=== PATIENT | male | born 1975 | race Caucasian/White ===

== ENCOUNTER 2017-12-24 10:05 | Emergency (ER) | payer SELFPAY ==
[2017-12-24 10:38] VITALS: PULSE 107; TEMP 98.3; BMI 30.5
--- NOTE | 2017-12-24 10:53 | PDOC ---
History of Present Illness - General Chief Complaint: Injury Stated Complaint: LEFT LEG PAIN INJURY Time Seen by Provider: 12/24/17 10:08 History Source: Patient Exam Limitations: No Limitations - History of Present Illness Initial Comments: 12/24/17 10:49 42-year-old male with no past medical history presents with left ankle pain. Yesterday, the patient was running and hit his left foot on an object. Since then, was complaining about left ankle pain. The patient was able to ambulate all day afterwards and went to a birthday green party. This morning, noted that it was more swollen and with ecchymosis. Denies any numbness or weakness. Came to the ER for further management. Past History - Past Medical History Allergies/Adverse Reactions: Allergies Allergy/AdvReac Type Severity Reaction Status Date / Time Penicillins Allergy Severe Difficulty Verified 12/24/17 10:11 Breathing Home Medications: Ambulatory Orders Naproxen 500 mg PO BID PRN #20 tablet 12/24/17 COPD: No Other medical history: DENIES - Suicide/Smoking/Psychosocial Hx Smoking History: Never smoked Have you smoked in the past 12 months: No Information on smoking cessation initiated: No Hx Alcohol Use: Yes Drug/Substance Use Hx: No Substance Use Type: Alcohol Review of Systems - Review of Systems Able to Perform ROS?: Yes Comments:: 12/24/17 10:49 GENERAL/CONSTITUTIONAL: No fever, weakness. HEAD, EYES, EARS, NOSE AND THROAT: No change in vision. No ear pain or discharge. No sore throat. CARDIOVASCULAR: No chest pain or shortness of breath. RESPIRATORY: No cough, wheezing, or hemoptysis. GASTROINTESTINAL: No abdominal pain, nausea, vomiting, diarrhea, or decreased PO intolerance. GENITOURINARY: No dysuria, frequency, or change in urination. MUSCULOSKELETAL: + left ankle pain SKIN: No rash NEUROLOGIC: No headache, vertigo, loss of consciousness, or change in strength/ sensation. ENDOCRINE: No increased thirst. No abnormal weight change. HEMATOLOGIC/LYMPHATIC: No anemia, easy bleeding, or history of blood clots. ALLERGIC/IMMUNOLOGIC: No hives or skin allergy. *Physical Exam - Vital Signs Last Vital Signs Temp Pulse Resp BP Pulse Ox 98.3 F 107 H 20 187/123 100 12/24/17 10:06 12/24/17 10:12/24/17 10:18 10:06 12/24/17 10:06 - Physical Exam Comments: 12/24/17 10:50 GENERAL: Awake, alert, and fully oriented, in no acute distress. HEAD: No signs of trauma EYES: EOMI, sclera anicteric, conjunctiva clear ENT: Auricles normal inspection, hearing grossly normal, nares patent, NECK: Normal ROM, supple EXTREMITIES: left ankle TTP medial and lateral malleolus. ecchymosis noted over medial malleolus. 2+ DP pulse LLE. Able to flex and extend ankle. No TTP to the metatarsals. Sensation intact throughout. No tenderness elicited on the medial or proximal portion of the tibia/fibula. NEUROLOGICAL: Cranial nerves II through XII grossly intact. Normal speech SKIN: Warm, Dry, normal turgor, no rashes or lesions noted. ED Treatment Course - RADIOLOGY Radiology Studies Ordered: Category Date Time Status ANKLE & FOOT-LEFT* [RAD] Stat Radiology 12/24/17 10:28 Ordered LEG TIB/FIB-LEFT [RAD] Stat Radiology 12/24/17 10:29 Ordered DUPLEX VASCUL US-1 LEG [US] Stat Ultrasound 12/24/17 10:29 Ordered Medical Decision Making - Medical Decision Making 12/24/17 10:53 Vital Signs Temp Pulse Resp BP Pulse Ox 98.3 F 107 H 20 187/123 100 12/24/17 10:06 12/24/17 10:06 12/24/17 10:06 12/24/17 10:06 12/24/17 10:06 Will obtain duplex and LLE radiographs. However, I have low suspicion for DVT. Pt likely with edema given that he was standing on it and walking on it all day after the injury. Will obtain a radiograph to r/o fractures. Reassess. 12/24/17 12:07 Ultrasound reviewed. No DVT. Radiographs reviewed, pending official radiology read. Distal fibula fracture. Pt made nonweightbearing. NSAIDS, elevation. Pt was placed in a posterior U splint. Follow up with orthopedics. Pt noted with elevated blood pressures. Pt insists that its white coat hypertension and from the pain. I advised the patient that his BP is elevated and that he will need very close PMD follow up. Pt denies chest pain, SOB, lightheadedness, headaches. At this time, will treat for pain and have patient follow up with a PMD with strict return precautions. I discussed the physical exam findings, ancillary test results and final diagnoses with the patient. I answered all of the patient's questions. The patient was satisfied with the care received and felt comfortable with the discharge plan and treatment plan. The patient will call their primary care physician within 24 hours to arrange follow-up and will return to the Emergency Department with any new, persistant or worsening symptoms. *DC/Admit/Observation/Transfer Diagnosis at time of Disposition: Fibula fracture Qualifiers: Encounter type: initial encounter Fibula location: distal Fracture type: closed Fracture morphology: unspecified fracture morphology Laterality: left Qualified Code(s): S82.832A - Other fracture of upper and lower end of left fibula, initial encounter for closed fracture - Discharge Dispostion Disposition: HOME Condition at time of disposition: Stable Decision to Admit order: No - Prescriptions Prescriptions: Naproxen 500 mg PO BID PRN #20 tablet PRN Reason: Pain - Referrals Referrals: Juan Manuel Gilmore MD [Staff Physician] - Frederick Bustos MD [Staff Physician] - - Patient Instructions Printed Discharge Instructions: DI for Ankle Fracture Additional Instructions: Please do not put weight on your splint. Wear your splint at all times. When you take a bath, please cover your splint with a bag. Elevate the leg as much as you can to minimize swelling. Take 500 mg naproxen every 12 hours as needed for pain. Use the crutches at all times. Your ultrasound is negative for blood clots. Your radiograph shows a fracture of your distal fibula. Please follow up with the orthopedics early next week. Call to schedule an appointment. Your blood pressure is quite elevated. It is very important that you follow up with a primary care physician. If you experience any chest pain, shortness of breath, or severe headaches, please return to the ER. - Post Discharge Activity
[2017-12-24] MEDS ORDERED: NAPROXEN 500 MG TABLET (FP) PO ONE (11:28)
[2017-12-24 11:29] VITALS: BP 181/129
[2017-12-24] MEDS ORDERED: NAPROXEN 500 MG TABLET (FP) ONE (11:30)
== END 2017-12-24 13:19 | disposition home or self-care (01) ==
LOC: FER 10:05
CPT/HCPCS: 73590-TC-LT-FY; 73610-TC-LT-FY; 73630-TC-LT; 93971-TC; 99282-25

== ENCOUNTER 2020-12-29 21:43 | Emergency (ER) | payer OTHER ==
[2020-12-29 21:57] VITALS: BP 135/81; PULSE 127; BMI 25.7
[2020-12-29 22:38] LABS: BASO % 1.4 % (0-2.0); HEMATOCRIT 45.6 % (35.4-49); HEMOGLOBIN 15.8 GM/dl (11.7-16.9); LYMPH % 32.1 % (8-40); MCH 32.4 pg (25.7-33.7); MCHC 34.5 g/dl (32.0-35.9); MEAN CELL VOLUME 93.8 fl (80-96); MEAN PLT VOLUME 8.1 fl (7.5-11.1); MONO % 10.9 % (3.8-10.2); NEUT % 54.6 % (42.8-82.8); PLATELET COUNT 169 10^3/uL (134-434); RBC 4.86 M/mm3 (4.00-5.60); RDW 11.9 % (11.9-15.9); WHITE BLOOD COUNT 6.3 K/mm3 (4.0-10.8)
[2020-12-29 22:52] LABS: ALBUMIN 4.3 g/dl (3.4-5.0); BILIRUBIN,TOTAL 0.4 mg/dl (0.2-1); CALCIUM 9.4 mg/dl (8.5-10); CREATININE 1.1 mg/dl (0.55-1.3); TOT PROT 7.6 g/dl (6.4-8.2)
== END 2020-12-30 00:35 | disposition home or self-care (01) ==
LOC: FER 21:43
DX: F10.920 Alcohol use, unspecified with intoxication, uncomplicated (principal); E11.9 Type 2 diabetes mellitus without complications
CPT/HCPCS: 36415; 80053; 80307; 81003; 82550; 84484; 85025; 93005; 99284-25

== ENCOUNTER 2021-01-02 00:38 | Emergency (ER) | payer OTHER ==
[2021-01-02] MEDS ORDERED: SODIUM CHLORIDE 1,000 ML IV STA (00:41)
[2021-01-02 00:49] VITALS: BP 127/99; PULSE 88; TEMP 98; BMI 27.8
[2021-01-02 02:07] LABS: BASO % 0.5 % (0-2.0); EOS % 1.5 % (0-4.5); HEMATOCRIT 43.3 % (35.4-49); HEMOGLOBIN 15.4 GM/dL (11.7-16.9); LYMPH % 38.9 % (8-40); MCHC 35.5 g/dl (32.0-35.9); MEAN CELL VOLUME 90.4 fl (80-96); MEAN PLT VOLUME 7.4 fl (7.5-11.1); MONO % 8.7 % (3.8-10.2); NEUT % 50.4 % (42.8-82.8); PLATELET COUNT 185 10^3/uL (134-434); RBC 4.79 M/mm3 (4.00-5.60); RDW 12.7 % (11.9-15.9); WHITE BLOOD COUNT 5.8 K/mm3 (4.0-10.0)
[2021-01-02 02:28] LABS: ALBUMIN 4.5 g/dl (3.4-5.0); CALCIUM 9.6 mg/dL (8.5-10.1)
[2021-01-02 02:29] LABS: BLOOD UREA NITROGEN 5.6 mg/dL (7-18)
[2021-01-02 02:31] LABS: CREATININE 0.6 mg/dL (0.55-1.3)
[2021-01-02 02:33] LABS: BILIRUBIN,TOTAL 0.4 mg/dL (0.2-1); TOT PROT 7.9 g/dl (6.4-8.2)
== END 2021-01-02 03:00 | disposition home or self-care (01) ==
LOC: FER 00:38
PROC: 3E0337Z Introduction of Electrolytic and Water Balance Substance into Peripheral Vein, Percutaneous Approach (ICD-10-PCS; principal; 2021-01-02)
DX: R73.09 Other abnormal glucose (principal)
CPT/HCPCS: 36415; 80053; 82010; 82962; 85025; 96360; 99283-25

== ENCOUNTER 2021-01-06 06:23 | Emergency (ER) | payer OTHER ==
[2021-01-06 06:41] VITALS: TEMP 98.1; BMI 24.5
[2021-01-06] MEDS ORDERED: LACTATED RINGERS SOLUTION 1000 ML INFUS.BAG IV ONE (07:34)
[2021-01-06 09:00] LABS: BASO % 0.9 % (0-2.0); EOS % 0.2 % (0-4.5); HEMATOCRIT 39.4 % (35.4-49); HEMOGLOBIN 13.8 GM/dL (11.7-16.9); LYMPH % 22.3 % (8-40); MEAN CELL VOLUME 91.6 fl (80-96); MEAN PLT VOLUME 7.1 fl (7.5-11.1); MONO % 7.7 % (3.8-10.2); NEUT % 68.9 % (42.8-82.8); PLATELET COUNT 176 10^3/uL (134-434); RDW 12.8 % (11.9-15.9); WHITE BLOOD COUNT 4.9 K/mm3 (4.0-10.0)
[2021-01-06 09:20] LABS: CHLORIDE 111 mmol/L (98-107); SODIUM 144 mmol/L (136-145)
[2021-01-06 09:22] LABS: CALCIUM 8.5 mg/dL (8.5-10.1)
[2021-01-06 09:23] LABS: ANION GAP 8 MMOL/L (8-16); BLOOD UREA NITROGEN 7.3 mg/dL (7-18); CO2 24 mmol/L (21-32); GLUCOSE,RANDOM 127 mg/dL (74-106)
[2021-01-06 09:26] LABS: CREATININE 0.6 mg/dL (0.55-1.3); SGOT/AST 48 U/L (15-37); SGPT/ALT 23 U/L (13-61)
[2021-01-06 09:27] LABS: BILIRUBIN,TOTAL 0.3 mg/dL (0.2-1)
[2021-01-06 09:28] LABS: TOT PROT 6.7 g/dl (6.4-8.2)
[2021-01-06 09:29] LABS: ALK PHOS 72 U/L (45-117)
[2021-01-06 09:31] LABS: ALBUMIN 3.5 g/dl (3.4-5.0)
[2021-01-06 12:42] VITALS: BP 141/89; PULSE 72
== END 2021-01-06 12:15 | disposition home or self-care (01) ==
LOC: JER 06:23
DX: R53.1 Weakness (principal); E16.2 Hypoglycemia, unspecified; Z79.4 Long term (current) use of insulin
CPT/HCPCS: 36415; 70450-TC; 80053; 82962; 84132; 84484; 85025; 93005; 93010; 99285-25

== ENCOUNTER 2021-03-15 22:00 | Emergency (ER) | payer OTHER ==
[2021-03-15 22:07] VITALS: BMI 27.1
[2021-03-15] MEDS ORDERED: LACTATED RINGERS SOLUTION 1,000 ML IV STA (23:15)
[2021-03-15] MEDS ORDERED: ONDANSETRON 4 MG/2 ML VIAL IVPUSH ONE (23:15)
[2021-03-15] MEDS ORDERED: ONDANSETRON 4 MG/2 ML VIAL ONE (23:39)
[2021-03-15 23:45] LABS: BASO % 0.3 % (0-2.0); EOS % 1.5 % (0-4.5); HEMATOCRIT 47.6 % (35.4-49); LYMPH % 36.9 % (8-40); MCH 32.3 pg (25.7-33.7); MCHC 35.8 g/dl (32.0-35.9); MEAN CELL VOLUME 90.2 fl (80-96); MEAN PLT VOLUME 7.4 fl (7.5-11.1); MONO % 7.9 % (3.8-10.2); NEUT % 53.4 % (42.8-82.8); PLATELET COUNT 198 10^3/uL (134-434); RBC 5.28 M/mm3 (4.00-5.60); RDW 13.4 % (11.9-15.9); WHITE BLOOD COUNT 6.8 K/mm3 (4.0-10.0)
[2021-03-15 23:50] LABS: INR 0.93 (0.83-1.09); PROTHROMBIN TIME (PATIENT) 11.5 SEC (9.7-13.0)
[2021-03-15 23:52] LABS: ACTIVATED PTT 27.6 SECONDS (25.2-36.5)
[2021-03-16 00:19] LABS: CHLORIDE 110 mmol/L (98-107); SODIUM 144 mmol/L (136-145)
[2021-03-16 00:21] LABS: CALCIUM 8.8 mg/dL (8.5-10.1)
[2021-03-16 00:22] LABS: ALBUMIN 4.3 g/dl (3.4-5.0); ANION GAP 8 MMOL/L (8-16); BLOOD UREA NITROGEN 7.5 mg/dL (7-18); CO2 25 mmol/L (21-32); GLUCOSE,RANDOM 116 mg/dL (74-106)
[2021-03-16 00:25] LABS: CREATININE 0.7 mg/dL (0.55-1.3); SGOT/AST 9 U/L (15-37); SGPT/ALT 21 U/L (13-61)
[2021-03-16 00:27] LABS: BILIRUBIN,TOTAL 0.3 mg/dL (0.2-1); TOT PROT 7.9 g/dl (6.4-8.2)
[2021-03-16 00:28] LABS: ALK PHOS 77 U/L (45-117)
[2021-03-16 02:49] LABS: URINE APPEARANCE CLEAR; URINE BILIRUBIN NEGATIVE (NEGATIVE); URINE COLOR YELLOW; URINE GLUCOSE (UA) TRACE (NEGATIVE); URINE KETONE TRACE (NEGATIVE); URINE LEUK ESTERASE NEGATIVE (NEGATIVE); URINE NITRITE NEGATIVE (NEGATIVE); URINE PROTEIN NEGATIVE (NEGATIVE); URINE UROBILINOGEN 0.2 mg/dL (0.2-1.0)
[2021-03-16] MEDS ORDERED: SUCRALFATE 1 GM TABLET (FP) PO ONE (03:28)
[2021-03-16] MEDS ORDERED: SUCRALFATE 1 GM TABLET (FP) ONE (03:37)
[2021-03-16 03:45] LABS: N-TERMINAL BNP 21.3 pg/ml (5-125)
[2021-03-16 04:37] VITALS: BP 124/80; PULSE 77
[2021-03-16] MEDS ORDERED: SUCRALFATE 1 GM TABLET (FP) PO SCH (10:00)
== END 2021-03-16 06:17 | disposition home or self-care (01) ==
LOC: JER 22:00
PROC: 3E033GC Introduction of Other Therapeutic Substance into Peripheral Vein, Percutaneous Approach (ICD-10-PCS; principal; 2021-03-15)
PROC: 3E0337Z Introduction of Electrolytic and Water Balance Substance into Peripheral Vein, Percutaneous Approach (ICD-10-PCS; 2021-03-15)
DX: R07.9 Chest pain, unspecified (principal)
CPT/HCPCS: 36415; 71046-TC-FY; 71275-TC; 74174-TC; 80053; 81003; 82550; 83880; 84484; 85025; 85379; 85610; 85651; 85730; 86140; 93005; 93010; 99285-25; C9803; U0003; U0005

== ENCOUNTER 2021-03-30 19:58 | Emergency (ER) | payer OTHER ==
[2021-03-30 20:16] VITALS: BP 149/98; PULSE 118; TEMP 99; BMI 26.8
[2021-03-30] MEDS ORDERED: SODIUM CHLORIDE 1,000 ML IV STA (21:20)
[2021-03-30 21:53] LABS: BASO % 2.7 % (0-2.0); EOS % 1.3 % (0-4.5); HEMOGLOBIN 15.6 GM/dl (11.7-16.9); LYMPH % 30.6 % (8-40); MCH 31.8 pg (25.7-33.7); MCHC 34.6 g/dl (32.0-35.9); MEAN CELL VOLUME 91.9 fl (80-96); MEAN PLT VOLUME 7.6 fl (7.5-11.1); MONO % 10.1 % (3.8-10.2); NEUT % 55.3 % (42.8-82.8); PLATELET COUNT 134 10^3/uL (134-434); RDW 12.1 % (11.9-15.9); WHITE BLOOD COUNT 5.9 K/mm3 (4.0-10.8)
[2021-03-30 21:59] LABS: ALK PHOS 71 U/L (45-117); ANION GAP 13 MMOL/L (8-16); BILIRUBIN,TOTAL 0.7 mg/dl (0.2-1); CALCIUM 9.1 mg/dl (8.5-10); CHLORIDE 108 mmol/L (98-107); CO2 23 mmol/L (21-32); CREATININE 0.7 mg/dl (0.55-1.3); GLUCOSE,RANDOM 184 mg/dl (74-106); SGOT/AST 15 U/L (15-37); SGPT/ALT 15 U/L (13-61); SODIUM 144 mmol/L (136-145)
[2021-03-30 23:00] LABS: LIPASE 164 U/L (73-393)
[2021-03-31] MEDS ORDERED: CIPROFLOXACIN 500 MG TABLET (RESTRICTED TO ID) PO ONE (01:31)
[2021-03-31] MEDS ORDERED: metroNIDAZOLE 250 MG TABLET PO ONE (01:31)
[2021-03-31] MEDS ORDERED: CIPROFLOXACIN 250 MG TABLET (RESTRICTED TO ID) PO ONE (01:33)
[2021-03-31] MEDS ORDERED: metroNIDAZOLE 250 MG TABLET ONE (01:33)
== END 2021-03-31 01:40 | disposition home or self-care (01) ==
LOC: FER 19:58
PROC: 3E0337Z Introduction of Electrolytic and Water Balance Substance into Peripheral Vein, Percutaneous Approach (ICD-10-PCS; principal; 2021-03-30)
DX: K52.9 Noninfective gastroenteritis and colitis, unspecified (principal); K57.92 Diverticulitis of intestine, part unspecified, without perforation or abscess without bleeding
CPT/HCPCS: 36415; 74177-TC; 76705-TC; 80053; 81003; 82962; 83690; 84484; 85025; 87086; 96360; 99285-25; Q9967

== ENCOUNTER 2022-06-17 01:13 | Inpatient (IN) | payer OTHER ==
[2022-06-17 01:43] VITALS: BMI 31.1
[2022-06-17] MEDS ORDERED: morphine CARPU-JECT 4 MG/1 ML DISP.SYRIN IVPUSH ONE (01:52)
[2022-06-17] MEDS ORDERED: morphine SULFATE 4 MG/ML VIAL ONE (02:30)
[2022-06-17 02:39] LABS: BASO % 0.8 % (0-2.0); EOS % 0.2 % (0-4.5); HEMATOCRIT 44.8 % (35.4-49); HEMOGLOBIN 15.5 GM/dL (11.7-16.9); LYMPH % 9.8 % (8-40); MCHC 34.6 g/dl (32.0-35.9); MEAN CELL VOLUME 92.6 fl (80-96); MEAN PLT VOLUME 7.6 fl (7.5-11.1); MONO % 8.7 % (3.8-10.2); NEUT % 80.5 % (42.8-82.8); PLATELET COUNT 158 10^3/uL (134-434); RBC 4.84 M/mm3 (4.00-5.60); RDW 12.8 % (11.9-15.9); WHITE BLOOD COUNT 11.3 K/mm3 (4.0-10.0)
[2022-06-17] MEDS ORDERED: ONDANSETRON 4 MG/2 ML VIAL IVPUSH ONE (02:39)
[2022-06-17] MEDS ORDERED: LACTATED RINGERS SOLUTION 1000 ML INFUS.BAG IV ONE (02:39)
[2022-06-17 02:46] LABS: URINE APPEARANCE CLEAR; URINE BILIRUBIN NEGATIVE (NEGATIVE); URINE COLOR ORANGE; URINE GLUCOSE (UA) NEGATIVE (NEGATIVE); URINE KETONE 1+ (NEGATIVE); URINE LEUK ESTERASE NEGATIVE (NEGATIVE); URINE NITRITE NEGATIVE (NEGATIVE); URINE PROTEIN NEGATIVE (NEGATIVE); URINE UROBILINOGEN 0.2 mg/dL (0.2-1.0)
[2022-06-17 03:02] LABS: BLOOD UREA NITROGEN 8.7 mg/dL (7-18); CALCIUM 9.5 mg/dL (8.5-10.1); MAGNESIUM 1.8 mg/dL (1.8-2.4)
[2022-06-17 03:05] LABS: CREATININE 0.9 mg/dL (0.55-1.3)
[2022-06-17 03:07] LABS: BILIRUBIN,TOTAL 1.5 mg/dL (0.2-1); TOT PROT 7.4 g/dl (6.4-8.2)
[2022-06-17] MEDS ORDERED: CIPROFLOXACIN 400 MG/D5W 400 MG/200 ML IVPB IVPB ONE (03:41)
[2022-06-17] MEDS ORDERED: ONDANSETRON 4 MG/2 ML VIAL IVPUSH PRN (04:27)
[2022-06-17] MEDS ORDERED: KETOROLAC TROMETHAMINE 15 MG/ML VIAL IVPUSH ONE (04:34)
[2022-06-17] MEDS ORDERED: KETOROLAC TROMETHAMINE 15 MG/ML VIAL ONE (04:35)
[2022-06-17] MEDS ORDERED: CEFTRIAXONE 1,000 MG in DEXTROSE 5%-WATER - 50 ML IVPB SCH (05:30)
[2022-06-17 07:36] LABS: BASO % 0.1 % (0-2.0); EOS % 0.2 % (0-4.5); HEMATOCRIT 41.3 % (35.4-49); HEMOGLOBIN 14.3 GM/dL (11.7-16.9); LYMPH % 10.9 % (8-40); MCHC 34.7 g/dl (32.0-35.9); MEAN PLT VOLUME 8.1 fl (7.5-11.1); MONO % 9.6 % (3.8-10.2); NEUT % 79.2 % (42.8-82.8); PLATELET COUNT 132 10^3/uL (134-434); RBC 4.49 M/mm3 (4.00-5.60); RDW 12.5 % (11.9-15.9); WHITE BLOOD COUNT 9.8 K/mm3 (4.0-10.0)
[2022-06-17] MEDS ORDERED: ACETAMINOPHEN INJECTION 100 ML IVPB ONE (08:21)
[2022-06-17 08:29] LABS: ALBUMIN 3.3 g/dl (3.4-5.0); BLOOD UREA NITROGEN 8.9 mg/dL (7-18); CALCIUM 8.8 mg/dL (8.5-10.1); MAGNESIUM 1.7 mg/dL (1.8-2.4)
[2022-06-17 08:32] LABS: BILIRUBIN,DIRECT 0.6 mg/dL (0.0-0.2); CREATININE 0.7 mg/dL (0.55-1.3); PHOSPHOROUS 3.7 mg/dL (2.5-4.9)
[2022-06-17 08:33] LABS: BILIRUBIN,TOTAL 1.4 mg/dL (0.2-1); TOT PROT 6.3 g/dl (6.4-8.2)
[2022-06-17] MEDS: INSULIN SLIDING SCALE (NOVOLOG) 1 VIAL SQ SCH ×4 (08:46→22:06)
[2022-06-17] MEDS: ACETAMINOPHEN 1000 MG/100 ML BAG IVPB PRN ×2 (08:47→17:28)
[2022-06-17] MEDS: ENOXAPARIN NA (PORCINE) 40 MG/0.4 ML DISP.SYRIN SQ SCH (11:13)
[2022-06-17] MEDS ORDERED: morphine SULFATE 4 MG/ML VIAL IVPUSH PRN (11:55)
[2022-06-17] MEDS ORDERED: MAGNESIUM 2GM/50ML STERILE WATER IVPB IVPB ONE (14:00)
[2022-06-17] MEDS ORDERED: MAGNESIUM OXIDE 400 MG TABLET (FP) PO ONE (17:09)
[2022-06-17] MEDS: LACTATED RINGERS SOLUTION 1,000 ML/1,000 ML INFUS.BAG IV SCH (17:29)
[2022-06-17] MEDS: MELATONIN 5 MG TABLETS PO SCH (22:02)
[2022-06-17] MEDS: ROSUVASTATIN CA 5 MG TABLET PO SCH (22:02)
[2022-06-18] MEDS ORDERED: MAGNESIUM OXIDE 400 MG TABLET (FP) PO ONE (06:00)
[2022-06-18] MEDS: INSULIN SLIDING SCALE (NOVOLOG) 1 VIAL SQ SCH ×4 (06:21→22:10)
[2022-06-18 08:01] LABS: HEMOGLOBIN 13.9 GM/dL (11.7-16.9); MCHC 35.6 g/dl (32.0-35.9); MEAN CELL VOLUME 92.8 fl (80-96); MEAN PLT VOLUME 7.7 fl (7.5-11.1); PLATELET COUNT 109 10^3/uL (134-434); RDW 12.3 % (11.9-15.9); WHITE BLOOD COUNT 6.8 K/mm3 (4.0-10.0)
[2022-06-18 08:16] LABS: CALCIUM 8.8 mg/dL (8.5-10.1)
[2022-06-18 08:17] LABS: ALBUMIN 3.1 g/dl (3.4-5.0)
[2022-06-18 08:20] LABS: PHOSPHOROUS 2.1 mg/dL (2.5-4.9)
[2022-06-18 08:21] LABS: CREATININE 0.7 mg/dL (0.55-1.3); TOT PROT 6.2 g/dl (6.4-8.2)
[2022-06-18 08:22] LABS: BILIRUBIN,TOTAL 0.9 mg/dL (0.2-1)
[2022-06-18] MEDS ORDERED: SODIUM PHOSPHATE - 20 MM in SODIUM CHLORIDE 250 ML IVPB ONE (11:00)
[2022-06-18] MEDS: ENOXAPARIN NA (PORCINE) 40 MG/0.4 ML DISP.SYRIN SQ SCH (11:05)
[2022-06-18] MEDS: FOLIC ACID 1 MG TABLET (FP) PO SCH (11:08)
[2022-06-18] MEDS: LACTATED RINGERS SOLUTION 1,000 ML/1,000 ML INFUS.BAG IV SCH (18:18)
[2022-06-18] MEDS: MELATONIN 5 MG TABLETS PO SCH (22:10)
[2022-06-18] MEDS: ROSUVASTATIN CA 5 MG TABLET PO SCH (22:10)
[2022-06-18] MEDS: ACETAMINOPHEN 500 MG TABLET (FP) PO PRN (22:44)
[2022-06-19] MEDS: INSULIN SLIDING SCALE (NOVOLOG) 1 VIAL SQ SCH ×4 (06:47→21:38)
[2022-06-19] MEDS: FOLIC ACID 1 MG TABLET (FP) PO SCH (10:01)
[2022-06-19] MEDS: ENOXAPARIN NA (PORCINE) 40 MG/0.4 ML DISP.SYRIN SQ SCH (10:01)
[2022-06-19] MEDS: LACTATED RINGERS SOLUTION 1,000 ML/1,000 ML INFUS.BAG IV SCH ×2 (10:13→17:02)
[2022-06-19 11:43] LABS: HEMATOCRIT 37.8 % (35.4-49); MCH 31.9 pg (25.7-33.7); MCHC 34.4 g/dl (32.0-35.9); MEAN CELL VOLUME 92.8 fl (80-96); MEAN PLT VOLUME 7.9 fl (7.5-11.1); PLATELET COUNT 127 10^3/uL (134-434); RBC 4.07 M/mm3 (4.00-5.60); RDW 12.2 % (11.9-15.9); WHITE BLOOD COUNT 4.7 K/mm3 (4.0-10.0)
[2022-06-19 12:29] LABS: ALBUMIN 2.9 g/dl (3.4-5.0); BLOOD UREA NITROGEN 6.6 mg/dL (7-18); MAGNESIUM 2.1 mg/dL (1.8-2.4)
[2022-06-19 12:31] LABS: CREATININE 0.6 mg/dL (0.55-1.3); PHOSPHOROUS 2.6 mg/dL (2.5-4.9)
[2022-06-19 12:32] LABS: BILIRUBIN,TOTAL 0.6 mg/dL (0.2-1)
[2022-06-19] MEDS: ACETAMINOPHEN 500 MG TABLET (FP) PO PRN (18:57)
[2022-06-19] MEDS: MELATONIN 5 MG TABLETS PO SCH (21:38)
[2022-06-19] MEDS: ROSUVASTATIN CA 5 MG TABLET PO SCH (21:38)
[2022-06-20] MEDS: INSULIN SLIDING SCALE (NOVOLOG) 1 VIAL SQ SCH ×4 (06:22→21:20)
[2022-06-20] MEDS: ACETAMINOPHEN 500 MG TABLET (FP) PO PRN (08:43)
[2022-06-20] MEDS: ENOXAPARIN NA (PORCINE) 40 MG/0.4 ML DISP.SYRIN SQ SCH (09:19)
[2022-06-20] MEDS: FOLIC ACID 1 MG TABLET (FP) PO SCH (09:19)
[2022-06-20 10:06] LABS: HEMATOCRIT 39.7 % (35.4-49); HEMOGLOBIN 13.6 GM/dL (11.7-16.9); MCH 32.2 pg (25.7-33.7); MCHC 34.3 g/dl (32.0-35.9); MEAN CELL VOLUME 93.9 fl (80-96); MEAN PLT VOLUME 7.6 fl (7.5-11.1); PLATELET COUNT 145 10^3/uL (134-434); RBC 4.23 M/mm3 (4.00-5.60); RDW 12.6 % (11.9-15.9); WHITE BLOOD COUNT 3.7 K/mm3 (4.0-10.0)
[2022-06-20 10:34] LABS: CALCIUM 9.1 mg/dL (8.5-10.1)
[2022-06-20 10:35] LABS: BLOOD UREA NITROGEN 6.8 mg/dL (7-18); MAGNESIUM 2.1 mg/dL (1.8-2.4)
[2022-06-20 10:38] LABS: CREATININE 0.7 mg/dL (0.55-1.3)
[2022-06-20 10:40] LABS: BILIRUBIN,TOTAL 0.6 mg/dL (0.2-1); TOT PROT 6.4 g/dl (6.4-8.2)
[2022-06-20] MEDS: ROSUVASTATIN CA 5 MG TABLET PO SCH (21:20)
[2022-06-20] MEDS: MELATONIN 5 MG TABLETS PO SCH (21:20)
[2022-06-21] MEDS: INSULIN SLIDING SCALE (NOVOLOG) 1 VIAL SQ SCH ×4 (06:38→22:17)
[2022-06-21] MEDS: FOLIC ACID 1 MG TABLET (FP) PO SCH (09:14)
[2022-06-21] MEDS: ENOXAPARIN NA (PORCINE) 40 MG/0.4 ML DISP.SYRIN SQ SCH (09:14)
[2022-06-21 10:15] LABS: HEMOGLOBIN 13.3 GM/dL (11.7-16.9); MCH 31.8 pg (25.7-33.7); MCHC 34.1 g/dl (32.0-35.9); MEAN CELL VOLUME 93.3 fl (80-96); MEAN PLT VOLUME 7.3 fl (7.5-11.1); PLATELET COUNT 161 10^3/uL (134-434); RBC 4.18 M/mm3 (4.00-5.60); RDW 12.2 % (11.9-15.9); WHITE BLOOD COUNT 3.7 K/mm3 (4.0-10.0)
[2022-06-21 10:58] LABS: ALBUMIN 3.1 g/dl (3.4-5.0); CALCIUM 9.4 mg/dL (8.5-10.1)
[2022-06-21 10:59] LABS: BLOOD UREA NITROGEN 7.1 mg/dL (7-18)
[2022-06-21 11:01] LABS: CREATININE 0.8 mg/dL (0.55-1.3); PHOSPHOROUS 2.8 mg/dL (2.5-4.9)
[2022-06-21 11:02] LABS: BILIRUBIN,TOTAL 0.4 mg/dL (0.2-1); TOT PROT 6.4 g/dl (6.4-8.2)
[2022-06-21 17:12] VITALS: RESP 18
[2022-06-21] MEDS: MELATONIN 5 MG TABLETS PO SCH (22:16)
[2022-06-21] MEDS: ROSUVASTATIN CA 5 MG TABLET PO SCH (22:16)
[2022-06-22] MEDS: INSULIN SLIDING SCALE (NOVOLOG) 1 VIAL SQ SCH ×3 (06:26→17:37)
[2022-06-22 09:29] LABS: HEMATOCRIT 41.6 % (35.4-49); HEMOGLOBIN 14.2 GM/dL (11.7-16.9); MCH 31.8 pg (25.7-33.7); MCHC 34.2 g/dl (32.0-35.9); MEAN CELL VOLUME 92.9 fl (80-96); MEAN PLT VOLUME 7.4 fl (7.5-11.1); PLATELET COUNT 174 10^3/uL (134-434); RBC 4.48 M/mm3 (4.00-5.60); RDW 12.3 % (11.9-15.9); WHITE BLOOD COUNT 3.9 K/mm3 (4.0-10.0)
[2022-06-22] MEDS: FOLIC ACID 1 MG TABLET (FP) PO SCH (10:24)
[2022-06-22] MEDS: ENOXAPARIN NA (PORCINE) 40 MG/0.4 ML DISP.SYRIN SQ SCH (10:24)
[2022-06-22 10:25] LABS: ALBUMIN 3.3 g/dl (3.4-5.0); BLOOD UREA NITROGEN 8.5 mg/dL (7-18); CALCIUM 9.6 mg/dL (8.5-10.1); MAGNESIUM 2.1 mg/dL (1.8-2.4)
[2022-06-22 10:28] LABS: CREATININE 0.7 mg/dL (0.55-1.3); PHOSPHOROUS 2.7 mg/dL (2.5-4.9)
[2022-06-22 10:30] LABS: BILIRUBIN,TOTAL 0.4 mg/dL (0.2-1); TOT PROT 6.7 g/dl (6.4-8.2)
[2022-06-22 15:36] VITALS: BP 121/81; PULSE 94; TEMP 98.8
== END 2022-06-22 18:15 | disposition home or self-care (01) | DRG 244 ==
LOC: JER 01:13 → JERBED 03:55 → UNDOADMOB 03:55 → INTOOBSV 03:55 → JERBED 04:31 → J5S 09:11 → JERBED 09:11 → OBSVTOIN 16:18
PROVIDERS: ADMIT Internal Medicine; ATTEND Internal Medicine
DX: K57.32 Diverticulitis of large intestine without perforation or abscess without bleeding (principal); R63.0 Anorexia; E11.9 Type 2 diabetes mellitus without complications; R74.01 Elevation of levels of liver transaminase levels; R10.32 Left lower quadrant pain
CPT/HCPCS: 36415; 74018-TC-FY; 74176-TC; 74177-TC; 80053; 81003; 82248; 82962; 83690; 83735; 84100; 84484; 85025; 85027; 86140; 87086; 93005; 93010; 99285-25; C9803-CS; G0378; Q9967; U0003; U0005

== ENCOUNTER 2022-11-01 15:39 | Inpatient (IN) | payer OTHER ==
[2022-11-01 15:43] VITALS: BMI 29.8
[2022-11-01] MEDS ORDERED: SODIUM CHLORIDE 1,000 ML IV STA (16:29)
[2022-11-01] MEDS ORDERED: ACETAMINOPHEN 1000 MG/100 ML BAG IVPB ONE (16:29)
[2022-11-01] MEDS ORDERED: ACETAMINOPHEN INJECTION 100 ML IVPB ONE (16:39)
[2022-11-01 16:59] LABS: BASO % 0.4 % (0-2.0); EOS % 1.4 % (0-4.5); HEMATOCRIT 41.6 % (35.4-49); LYMPH % 42.6 % (8-40); MCH 33.1 pg (25.7-33.7); MCHC 36.1 g/dl (32.0-35.9); MEAN CELL VOLUME 91.7 fl (80-96); MONO % 9.8 % (3.8-10.2); NEUT % 45.8 % (42.8-82.8); PLATELET COUNT 158 10^3/uL (134-434); RBC 4.54 M/mm3 (4.00-5.60); RDW 13.2 % (11.9-15.9); WHITE BLOOD COUNT 4.1 K/mm3 (4.0-10.0)
[2022-11-01] MEDS ORDERED: morphine CARPU-JECT 4 MG/1 ML DISP.SYRIN IVPUSH ONE ×2 (17:01→20:08)
[2022-11-01 17:06] LABS: INR 0.99 (0.83-1.09); PROTHROMBIN TIME (PATIENT) 11.5 SEC (9.7-13.0)
[2022-11-01 17:08] LABS: ACTIVATED PTT 28.9 SECONDS (25.2-36.5)
[2022-11-01 17:09] LABS: PH,URINE 5.5 (5.0-8.0); URINE APPEARANCE CLEAR; URINE BILIRUBIN NEGATIVE (NEGATIVE); URINE COLOR YELLOW; URINE GLUCOSE (UA) NEGATIVE (NEGATIVE); URINE KETONE NEGATIVE (NEGATIVE); URINE LEUK ESTERASE NEGATIVE (NEGATIVE); URINE NITRITE NEGATIVE (NEGATIVE); URINE PROTEIN NEGATIVE (NEGATIVE); URINE UROBILINOGEN 0.2 mg/dL (0.2-1.0)
[2022-11-01 17:18] LABS: POTASSIUM 3.8 mmol/L (3.5-5.1)
[2022-11-01 17:20] LABS: CALCIUM 9.7 mg/dL (8.5-10.1)
[2022-11-01 17:21] LABS: BLOOD UREA NITROGEN 6.8 mg/dL (7-18)
[2022-11-01 17:23] LABS: CREATININE 0.8 mg/dL (0.55-1.3)
[2022-11-01 17:25] LABS: BILIRUBIN,TOTAL 0.5 mg/dL (0.2-1); TOT PROT 7.5 g/dl (6.4-8.2)
[2022-11-01] MEDS ORDERED: morphine SULFATE 4 MG/ML VIAL ONE (17:29)
[2022-11-02] MEDS: LACTATED RINGERS SOLUTION 1,000 ML/1,000 ML INFUS.BAG IV SCH ×2 (01:25→17:02)
[2022-11-02] MEDS: ACETAMINOPHEN 1000 MG/100 ML BAG IVPB PRN ×3 (06:14→23:02)
[2022-11-02] MEDS: INSULIN SLIDING SCALE (NOVOLOG) 1 VIAL SQ SCH ×3 (07:57→16:41)
[2022-11-02] MEDS: ENOXAPARIN NA (PORCINE) 40 MG/0.4 ML DISP.SYRIN SQ SCH (10:10)
[2022-11-02] MEDS ORDERED: KETOROLAC TROMETHAMINE 30 MG/1 ML VIAL IVPUSH ONE (10:52)
[2022-11-02 11:45] LABS: HEMATOCRIT 36.4 % (35.4-49); HEMOGLOBIN 13.1 GM/dL (11.7-16.9); MCH 33.3 pg (25.7-33.7); MCHC 36.1 g/dl (32.0-35.9); MEAN CELL VOLUME 92.3 fl (80-96); PLATELET COUNT 118 10^3/uL (134-434); RBC 3.95 M/mm3 (4.00-5.60); RDW 12.8 % (11.9-15.9); WHITE BLOOD COUNT 3.6 K/mm3 (4.0-10.0)
[2022-11-02 11:56] LABS: CHLORIDE 106 mmol/L (98-107); POTASSIUM 3.8 mmol/L (3.5-5.1); SODIUM 140 mmol/L (136-145)
[2022-11-02 12:13] LABS: CALCIUM 8.8 mg/dL (8.5-10.1)
[2022-11-02 12:14] LABS: ALBUMIN 3.4 g/dl (3.4-5.0); ANION GAP 7 MMOL/L (8-16); CO2 27 mmol/L (21-32); CREATININE 0.8 mg/dL (0.55-1.3); GLUCOSE,RANDOM 140 mg/dL (74-106); SGPT/ALT 21 U/L (13-61)
[2022-11-02 12:15] LABS: SGOT/AST 12 U/L (15-37)
[2022-11-02 12:16] LABS: ALK PHOS 65 U/L (45-117); TOT PROT 6.2 g/dl (6.4-8.2)
[2022-11-02 12:17] LABS: BILIRUBIN,TOTAL 0.6 mg/dL (0.2-1)
[2022-11-02] MEDS ORDERED: LACTATED RINGERS SOLUTION 1,000 ML/1,000 ML INFUS.BAG IV SCH (21:45)
[2022-11-02] MEDS: LISINOPRIL 5 MG TABLET PO SCH (23:03)
[2022-11-03] MEDS: INSULIN SLIDING SCALE (NOVOLOG) 1 VIAL SQ SCH ×5 (02:07→21:14)
[2022-11-03] MEDS ORDERED: LACTATED RINGERS SOLUTION 1,000 ML/1,000 ML INFUS.BAG IV SCH (03:49)
[2022-11-03] MEDS: LISINOPRIL 5 MG TABLET PO SCH (10:09)
[2022-11-03] MEDS: ENOXAPARIN NA (PORCINE) 40 MG/0.4 ML DISP.SYRIN SQ SCH (10:09)
[2022-11-03 10:41] LABS: BASO % 0.3 % (0-2.0); EOS % 1.6 % (0-4.5); HEMATOCRIT 38.1 % (35.4-49); HEMOGLOBIN 13.5 GM/dL (11.7-16.9); LYMPH % 26.5 % (8-40); MCH 32.9 pg (25.7-33.7); MCHC 35.5 g/dl (32.0-35.9); MEAN CELL VOLUME 92.8 fl (80-96); MEAN PLT VOLUME 7.6 fl (7.5-11.1); MONO % 9.2 % (3.8-10.2); NEUT % 62.4 % (42.8-82.8); PLATELET COUNT 120 10^3/uL (134-434); RBC 4.11 M/mm3 (4.00-5.60); WHITE BLOOD COUNT 3.6 K/mm3 (4.0-10.0)
[2022-11-03 11:00] LABS: CHLORIDE 108 mmol/L (98-107); POTASSIUM 4.3 mmol/L (3.5-5.1); SODIUM 141 mmol/L (136-145)
[2022-11-03 11:03] LABS: ALBUMIN 3.3 g/dl (3.4-5.0); ANION GAP 2 MMOL/L (8-16); BLOOD UREA NITROGEN 5.2 mg/dL (7-18); CALCIUM 8.9 mg/dL (8.5-10.1); CO2 31 mmol/L (21-32); GLUCOSE,RANDOM 128 mg/dL (74-106)
[2022-11-03 11:06] LABS: CREATININE 0.7 mg/dL (0.55-1.3); SGOT/AST 14 U/L (15-37); SGPT/ALT 22 U/L (13-61)
[2022-11-03 11:09] LABS: ALK PHOS 64 U/L (45-117); BILIRUBIN,TOTAL 0.8 mg/dL (0.2-1); TOT PROT 6.1 g/dl (6.4-8.2)
[2022-11-04] MEDS: INSULIN SLIDING SCALE (NOVOLOG) 1 VIAL SQ SCH ×4 (06:08→21:38)
[2022-11-04 10:05] LABS: BASO % 0.3 % (0-2.0); HEMOGLOBIN 13.8 GM/dL (11.7-16.9); LYMPH % 32.9 % (8-40); MCHC 35.5 g/dl (32.0-35.9); MEAN CELL VOLUME 92.7 fl (80-96); MEAN PLT VOLUME 8.2 fl (7.5-11.1); MONO % 10.5 % (3.8-10.2); NEUT % 54.3 % (42.8-82.8); PLATELET COUNT 122 10^3/uL (134-434); RDW 12.9 % (11.9-15.9); WHITE BLOOD COUNT 3.2 K/mm3 (4.0-10.0)
[2022-11-04 10:24] LABS: CALCIUM 8.7 mg/dL (8.5-10.1); POTASSIUM 3.8 mmol/L (3.5-5.1)
[2022-11-04 10:28] LABS: BLOOD UREA NITROGEN 6.4 mg/dL (7-18); MAGNESIUM 1.9 mg/dL (1.8-2.4)
[2022-11-04 10:30] LABS: ALBUMIN 3.4 g/dl (3.4-5.0)
[2022-11-04 10:32] LABS: CREATININE 0.7 mg/dL (0.55-1.3); PHOSPHOROUS 3.2 mg/dL (2.5-4.9)
[2022-11-04 10:33] LABS: BILIRUBIN,TOTAL 0.6 mg/dL (0.2-1); TOT PROT 6.3 g/dl (6.4-8.2)
[2022-11-04] MEDS: ENOXAPARIN NA (PORCINE) 40 MG/0.4 ML DISP.SYRIN SQ SCH (12:43)
[2022-11-04] MEDS: LISINOPRIL 5 MG TABLET PO SCH (12:44)
[2022-11-04] MEDS ORDERED: INSULIN SLIDING SCALE (NOVOLOG) 1 VIAL SQ ONE (13:07)
[2022-11-04] MEDS: ACETAMINOPHEN 1000 MG/100 ML BAG IVPB PRN (15:31)
[2022-11-05] MEDS: INSULIN SLIDING SCALE (NOVOLOG) 1 VIAL SQ SCH ×4 (06:28→21:14)
[2022-11-05] MEDS: metroNIDAZOLE 250 MG TABLET PO SCH ×3 (09:58→21:14)
[2022-11-05] MEDS: ENOXAPARIN NA (PORCINE) 40 MG/0.4 ML DISP.SYRIN SQ SCH (09:58)
[2022-11-05] MEDS: LISINOPRIL 5 MG TABLET PO SCH (09:59)
[2022-11-05] MEDS: levoFLOXacin 750 MG TABLET PO SCH (11:26)
[2022-11-05 19:45] LABS: BASO % 0.2 % (0-2.0); EOS % 1.8 % (0-4.5); HEMATOCRIT 41.6 % (35.4-49); HEMOGLOBIN 14.8 GM/dL (11.7-16.9); LYMPH % 29.1 % (8-40); MCH 32.8 pg (25.7-33.7); MCHC 35.5 g/dl (32.0-35.9); MEAN CELL VOLUME 92.3 fl (80-96); MEAN PLT VOLUME 7.8 fl (7.5-11.1); MONO % 8.8 % (3.8-10.2); NEUT % 60.1 % (42.8-82.8); PLATELET COUNT 152 10^3/uL (134-434); RDW 12.8 % (11.9-15.9); WHITE BLOOD COUNT 5.4 K/mm3 (4.0-10.0)
[2022-11-05 20:04] LABS: CHLORIDE 102 mmol/L (98-107); POTASSIUM 3.9 mmol/L (3.5-5.1); SODIUM 138 mmol/L (136-145)
[2022-11-05 20:05] LABS: CALCIUM 9.3 mg/dL (8.5-10.1)
[2022-11-05 20:06] LABS: ANION GAP 8 MMOL/L (8-16); BLOOD UREA NITROGEN 5.2 mg/dL (7-18); CO2 28 mmol/L (21-32); GLUCOSE,RANDOM 171 mg/dL (74-106)
[2022-11-05 20:07] LABS: MAGNESIUM 2.1 mg/dL (1.8-2.4)
[2022-11-05 20:09] LABS: CREATININE 0.9 mg/dL (0.55-1.3)
[2022-11-05 20:10] LABS: PHOSPHOROUS 3.5 mg/dL (2.5-4.9)
[2022-11-06] MEDS: metroNIDAZOLE 250 MG TABLET PO SCH ×3 (05:59→21:22)
[2022-11-06] MEDS: levoFLOXacin 750 MG TABLET PO SCH (05:59)
[2022-11-06] MEDS: INSULIN SLIDING SCALE (NOVOLOG) 1 VIAL SQ SCH ×4 (06:04→21:26)
[2022-11-06] MEDS: LISINOPRIL 5 MG TABLET PO SCH (10:00)
[2022-11-06] MEDS: ENOXAPARIN NA (PORCINE) 40 MG/0.4 ML DISP.SYRIN SQ SCH (10:00)
[2022-11-06 10:07] LABS: POTASSIUM 4.2 mmol/L (3.5-5.1)
[2022-11-06 10:12] LABS: BLOOD UREA NITROGEN 6.9 mg/dL (7-18)
[2022-11-06 10:14] LABS: CALCIUM 9.3 mg/dL (8.5-10.1)
[2022-11-06 10:15] LABS: CREATININE 0.9 mg/dL (0.55-1.3); MAGNESIUM 1.9 mg/dL (1.8-2.4); PHOSPHOROUS 3.2 mg/dL (2.5-4.9)
[2022-11-06 10:52] LABS: BASO % 0.2 % (0-2.0); EOS % 1.6 % (0-4.5); HEMATOCRIT 39.9 % (35.4-49); HEMOGLOBIN 14.4 GM/dL (11.7-16.9); LYMPH % 25.6 % (8-40); MCH 33.3 pg (25.7-33.7); MEAN CELL VOLUME 92.7 fl (80-96); MEAN PLT VOLUME 7.8 fl (7.5-11.1); MONO % 10.2 % (3.8-10.2); NEUT % 62.4 % (42.8-82.8); PLATELET COUNT 126 10^3/uL (134-434); RBC 4.31 M/mm3 (4.00-5.60); RDW 12.7 % (11.9-15.9); WHITE BLOOD COUNT 3.8 K/mm3 (4.0-10.0)
[2022-11-07] MEDS: metroNIDAZOLE 250 MG TABLET PO SCH ×2 (05:24→14:24)
[2022-11-07] MEDS: levoFLOXacin 750 MG TABLET PO SCH (05:24)
[2022-11-07] MEDS: INSULIN SLIDING SCALE (NOVOLOG) 1 VIAL SQ SCH ×4 (06:00→21:25)
[2022-11-07] MEDS ORDERED: TRIMETHOBENZAMIDE HCL 200MG/2ML INJ IM ONE (06:39)
[2022-11-07] MEDS: LISINOPRIL 5 MG TABLET PO SCH (09:33)
[2022-11-07] MEDS: ENOXAPARIN NA (PORCINE) 40 MG/0.4 ML DISP.SYRIN SQ SCH (09:33)
[2022-11-07 10:18] LABS: BASO % 0.4 % (0-2.0); EOS % 1.7 % (0-4.5); HEMATOCRIT 41.1 % (35.4-49); HEMOGLOBIN 14.8 GM/dL (11.7-16.9); LYMPH % 26.2 % (8-40); MCH 33.6 pg (25.7-33.7); MEAN CELL VOLUME 93.2 fl (80-96); MEAN PLT VOLUME 8.1 fl (7.5-11.1); MONO % 8.5 % (3.8-10.2); NEUT % 63.2 % (42.8-82.8); PLATELET COUNT 130 10^3/uL (134-434); RBC 4.42 M/mm3 (4.00-5.60); RDW 12.9 % (11.9-15.9); WHITE BLOOD COUNT 3.9 K/mm3 (4.0-10.0)
[2022-11-07 10:36] LABS: POTASSIUM 3.9 mmol/L (3.5-5.1)
[2022-11-07 10:38] LABS: CALCIUM 9.2 mg/dL (8.5-10.1)
[2022-11-07 10:39] LABS: ALBUMIN 3.8 g/dl (3.4-5.0); BLOOD UREA NITROGEN 10.8 mg/dL (7-18); MAGNESIUM 1.8 mg/dL (1.8-2.4)
[2022-11-07 10:42] LABS: CREATININE 0.9 mg/dL (0.55-1.3); PHOSPHOROUS 2.9 mg/dL (2.5-4.9)
[2022-11-07 10:43] LABS: BILIRUBIN,TOTAL 0.8 mg/dL (0.2-1)
[2022-11-07 10:44] LABS: TOT PROT 7.2 g/dl (6.4-8.2)
[2022-11-07] MEDS ORDERED: PROCHLORPERAZINE MALEATE 5 MG TABLET PO PRN (12:28)
[2022-11-08] MEDS ORDERED: ACETAMINOPHEN 500 MG TABLET (FP) PO ONE (01:24)
[2022-11-08] MEDS: INSULIN SLIDING SCALE (NOVOLOG) 1 VIAL SQ SCH ×4 (06:05→21:38)
[2022-11-08] MEDS: levoFLOXacin 750 MG TABLET PO SCH (06:05)
[2022-11-08] MEDS: ENOXAPARIN NA (PORCINE) 40 MG/0.4 ML DISP.SYRIN SQ SCH (09:23)
[2022-11-08] MEDS: LISINOPRIL 5 MG TABLET PO SCH (09:23)
[2022-11-08 11:40] LABS: CHLORIDE 106 mmol/L (98-107); POTASSIUM 4.6 mmol/L (3.5-5.1); SODIUM 138 mmol/L (136-145)
[2022-11-08 11:45] LABS: ALBUMIN 3.6 g/dl (3.4-5.0); CALCIUM 9.2 mg/dL (8.5-10.1); GLUCOSE,RANDOM 215 mg/dL (74-106)
[2022-11-08 11:46] LABS: BLOOD UREA NITROGEN 11.2 mg/dL (7-18)
[2022-11-08 11:48] LABS: ANION GAP 4 MMOL/L (8-16); BILIRUBIN,DIRECT 0.1 mg/dL (0.0-0.2); CO2 29 mmol/L (21-32); CREATININE 0.8 mg/dL (0.55-1.3); SGOT/AST 53 U/L (15-37); SGPT/ALT 71 U/L (13-61)
[2022-11-08 11:49] LABS: IRON SERUM 113 ug/dL (50-175)
[2022-11-08 11:50] LABS: BILIRUBIN,TOTAL 0.6 mg/dL (0.2-1); TOT PROT 6.6 g/dl (6.4-8.2); TOTAL IRON BINDING CAPACITY 373 ug/dL (250-450)
[2022-11-08 11:51] LABS: ALK PHOS 63 U/L (45-117)
[2022-11-08 11:55] LABS: BASO % 0.4 % (0-2.0); EOS % 1.8 % (0-4.5); HEMOGLOBIN 14.3 GM/dL (11.7-16.9); LYMPH % 25.1 % (8-40); MCH 32.6 pg (25.7-33.7); MCHC 35.7 g/dl (32.0-35.9); MEAN CELL VOLUME 91.4 fl (80-96); MEAN PLT VOLUME 7.6 fl (7.5-11.1); MONO % 10.9 % (3.8-10.2); NEUT % 61.8 % (42.8-82.8); PLATELET COUNT 128 10^3/uL (134-434); RBC 4.38 M/mm3 (4.00-5.60); RDW 12.7 % (11.9-15.9); WHITE BLOOD COUNT 3.7 K/mm3 (4.0-10.0)
[2022-11-08 19:09] VITALS: RESP 18
[2022-11-09] MEDS: INSULIN SLIDING SCALE (NOVOLOG) 1 VIAL SQ SCH (06:17)
[2022-11-09] MEDS: levoFLOXacin 750 MG TABLET PO SCH (06:17)
[2022-11-09] MEDS: LISINOPRIL 5 MG TABLET PO SCH (09:19)
[2022-11-09 10:33] VITALS: BP 113/61; PULSE 81; TEMP 98.3
== END 2022-11-09 10:30 | disposition home or self-care (01) | DRG 244 ==
LOC: JER 15:39 → JERBED 19:36 → J5S 21:53 → OBSVTOIN 11-02 13:59
PROVIDERS: ADMIT Internal Medicine; ATTEND Internal Medicine
DX: K57.32 Diverticulitis of large intestine without perforation or abscess without bleeding (principal); E11.9 Type 2 diabetes mellitus without complications; I10 Essential (primary) hypertension; E78.5 Hyperlipidemia, unspecified; R11.2 Nausea with vomiting, unspecified; R79.89 Other specified abnormal findings of blood chemistry; E66.8 Other obesity; Z68.29 Body mass index [BMI] 29.0-29.9, adult; K50.10 Crohn's disease of large intestine without complications
CPT/HCPCS: 0241U-QW; 36415; 74176-TC; 74177-TC; 80048; 80053; 80076; 81003; 82728; 82962; 83516; 83540; 83550; 83605; 83690; 83735; 84100; 85025; 85027; 85610; 85730; 86038; 86140; 86708; 86803; 87086; 87340; 87517; 93005; 93010; 99285-25; G0378; Q9967

== ENCOUNTER 2022-12-06 11:10 | Inpatient (IN) | payer OTHER ==
[2022-12-06] MEDS ORDERED: ACETAMINOPHEN 1000 MG/100 ML BAG IVPB ONE (12:23)
[2022-12-06] MEDS ORDERED: ACETAMINOPHEN INJECTION 100 ML IVPB ONE (12:49)
[2022-12-06 13:15] LABS: ACTIVATED PTT 29.2 SECONDS (25.2-36.5); INR 1.06 (0.83-1.09); PROTHROMBIN TIME (PATIENT) 12.3 SEC (9.7-13.0)
[2022-12-06 13:19] LABS: POTASSIUM 4.5 mmol/L (3.5-5.1)
[2022-12-06 13:21] LABS: BLOOD UREA NITROGEN 7.5 mg/dL (7-18); CALCIUM 9.2 mg/dL (8.5-10.1); MAGNESIUM 2.3 mg/dL (1.8-2.4)
[2022-12-06 13:24] LABS: CREATININE 0.6 mg/dL (0.55-1.3)
[2022-12-06 13:28] LABS: BILIRUBIN,TOTAL 0.4 mg/dL (0.2-1); TOT PROT 7.6 g/dl (6.4-8.2)
[2022-12-06 13:40] LABS: URINE APPEARANCE CLEAR; URINE BILIRUBIN NEGATIVE (NEGATIVE); URINE COLOR YELLOW; URINE GLUCOSE (UA) NEGATIVE (NEGATIVE); URINE KETONE NEGATIVE (NEGATIVE); URINE LEUK ESTERASE NEGATIVE (NEGATIVE); URINE NITRITE NEGATIVE (NEGATIVE); URINE PROTEIN NEGATIVE (NEGATIVE); URINE UROBILINOGEN 0.2 mg/dL (0.2-1.0)
[2022-12-06 13:45] LABS: BASO % 0.5 % (0-2.0); EOS % 1.8 % (0-4.5); HEMATOCRIT 41.8 % (35.4-49); LYMPH % 39.1 % (8-40); MCH 33.2 pg (25.7-33.7); MCHC 35.9 g/dl (32.0-35.9); MEAN CELL VOLUME 92.5 fl (80-96); MEAN PLT VOLUME 7.4 fl (7.5-11.1); MONO % 13.4 % (3.8-10.2); NEUT % 45.2 % (42.8-82.8); PLATELET COUNT 143 10^3/uL (134-434); RBC 4.52 M/mm3 (4.00-5.60); RDW 12.9 % (11.9-15.9); WHITE BLOOD COUNT 3.8 K/mm3 (4.0-10.0)
[2022-12-06] MEDS: LACTATED RINGERS SOLUTION 1,000 ML IV SCH (15:00)
[2022-12-06 15:30] VITALS: BMI 30.9
[2022-12-06] MEDS ORDERED: INSULIN (NOVOLOG) ASPART 100 UNITS/ML 10ML VIAL ONE (17:39)
[2022-12-06] MEDS: INSULIN SLIDING SCALE (NOVOLOG) 1 VIAL SQ SCH (17:50)
[2022-12-07] MEDS ORDERED: INSULIN (NOVOLOG) ASPART 100 UNITS/ML 10ML VIAL ONE ×4 (06:06→16:40)
[2022-12-07] MEDS: INSULIN SLIDING SCALE (NOVOLOG) 1 VIAL SQ SCH ×3 (06:11→16:41)
[2022-12-07] MEDS ORDERED: PEG 3350/NA SULF BICARB CL/KCL 4000 ML SOLN.RECON PO ONE (08:53)
[2022-12-07 09:05] LABS: BASO % 0.4 % (0-2.0); EOS % 2.3 % (0-4.5); HEMATOCRIT 38.7 % (35.4-49); HEMOGLOBIN 13.5 GM/dL (11.7-16.9); MCH 32.5 pg (25.7-33.7); MCHC 34.9 g/dl (32.0-35.9); MEAN CELL VOLUME 93.1 fl (80-96); MEAN PLT VOLUME 7.7 fl (7.5-11.1); MONO % 12.9 % (3.8-10.2); NEUT % 48.4 % (42.8-82.8); PLATELET COUNT 124 10^3/uL (134-434); RBC 4.15 M/mm3 (4.00-5.60); RDW 12.8 % (11.9-15.9); WHITE BLOOD COUNT 3.2 K/mm3 (4.0-10.0)
[2022-12-07 09:17] LABS: POTASSIUM 4.3 mmol/L (3.5-5.1)
[2022-12-07 09:19] LABS: CALCIUM 9.3 mg/dL (8.5-10.1)
[2022-12-07 09:20] LABS: BLOOD UREA NITROGEN 6.9 mg/dL (7-18)
[2022-12-07 09:26] LABS: CREATININE 0.7 mg/dL (0.55-1.3)
[2022-12-07] MEDS: LISINOPRIL 5 MG TABLET PO SCH (10:46)
[2022-12-07] MEDS ORDERED: metroNIDAZOLE 250 MG TABLET PO SCH (14:00)
[2022-12-07] MEDS: NEOMYCIN SO4 500 MG TABLET PO SCH ×2 (15:01→22:05)
[2022-12-08] MEDS: NEOMYCIN SO4 500 MG TABLET PO SCH (05:27)
[2022-12-08] MEDS ORDERED: INSULIN (NOVOLOG) ASPART 100 UNITS/ML 10ML VIAL ONE (06:25)
[2022-12-08] MEDS: INSULIN SLIDING SCALE (NOVOLOG) 1 VIAL SQ SCH ×3 (06:27→17:46)
[2022-12-08 07:54] LABS: INR 1.05 (0.83-1.09); PROTHROMBIN TIME (PATIENT) 12.2 SEC (9.7-13.0)
[2022-12-08 08:07] LABS: POTASSIUM 3.9 mmol/L (3.5-5.1)
[2022-12-08 08:10] LABS: CALCIUM 9.8 mg/dL (8.5-10.1)
[2022-12-08 08:11] LABS: ALBUMIN 4.1 g/dl (3.4-5.0); BLOOD UREA NITROGEN 6.6 mg/dL (7-18)
[2022-12-08 08:14] LABS: CREATININE 0.8 mg/dL (0.55-1.3)
[2022-12-08 08:16] LABS: TOT PROT 7.6 g/dl (6.4-8.2)
[2022-12-08] MEDS ORDERED: HEPARIN NA (PORCINE) 5,000 UNITS/ML 1ML VIAL ONE (08:21)
[2022-12-08] MEDS ORDERED: BUPIVACAINE HCL/PF 0.25% (2.5MG/ML) 10 ML VIAL ONE (08:21)
[2022-12-08] MEDS ORDERED: INDOCYANINE GREEN 25 MG/10 ML VIAL IVPUSH ONE ×3 (08:21→13:57)
[2022-12-08] MEDS ORDERED: CEFOXITIN SODIUM 2 GM IVPB ONE (08:21)
[2022-12-08] MEDS ORDERED: CEFOXITIN SODIUM 1 GM IVPB ONE (08:22)
[2022-12-08 08:44] LABS: BASO % 0.5 % (0-2.0); EOS % 2.1 % (0-4.5); HEMATOCRIT 42.5 % (35.4-49); LYMPH % 37.2 % (8-40); MCH 32.7 pg (25.7-33.7); MCHC 35.2 g/dl (32.0-35.9); MEAN CELL VOLUME 92.8 fl (80-96); MEAN PLT VOLUME 7.9 fl (7.5-11.1); MONO % 11.9 % (3.8-10.2); NEUT % 48.3 % (42.8-82.8); PLATELET COUNT 155 10^3/uL (134-434); RBC 4.57 M/mm3 (4.00-5.60); RDW 12.8 % (11.9-15.9); WHITE BLOOD COUNT 4.5 K/mm3 (4.0-10.0)
[2022-12-08] MEDS: LISINOPRIL 5 MG TABLET PO SCH (11:05)
[2022-12-08] MEDS ORDERED: PROPOFOL 20 ML ONE (11:45)
[2022-12-08] MEDS ORDERED: SUCCINYLCHOLINE CHLORIDE 200 MG/10 ML SYRINGE ONE (11:45)
[2022-12-08] MEDS ORDERED: LIDOCAINE HCL/PF 2% SDV 5ML VIAL ONE (11:45)
[2022-12-08] MEDS ORDERED: MIDAZOLAM HCL 2 MG/2 ML SINGLE DOSE VIAL ONE (11:45)
[2022-12-08] MEDS ORDERED: ROCURONIUM BROMIDE 50 MG/5 ML SYRINGE ONE ×3 (11:45→14:59)
[2022-12-08] MEDS ORDERED: ONDANSETRON 4 MG/2 ML VIAL IVPUSH PRN (13:09)
[2022-12-08] MEDS ORDERED: oxyCODONE HCL 5 MG TABLET PO PRN ×2 (13:09→18:40)
[2022-12-08] MEDS ORDERED: BUPIVACAINE HCL/PF 0.25% (2.5MG/ML) 10 ML VIAL IJ ONE (14:25)
[2022-12-08] MEDS ORDERED: HYDROmorphone HCl 2 MG/ML VIAL ONE ×2 (16:27→19:29)
[2022-12-08] MEDS ORDERED: SEVOFLURANE 250 ML BTL ONE (16:57)
[2022-12-08] MEDS: LACTATED RINGERS SOLUTION 1,000 ML IV SCH (17:42)
[2022-12-08] MEDS ORDERED: ACETAMINOPHEN 1000 MG/100 ML BAG IVPB ONE ×2 (18:12→19:15)
[2022-12-08] MEDS ORDERED: PROMETHAZINE HCL 25 MG/1 ML VIAL IVPB PRN ×2 (18:12→19:15)
[2022-12-08] MEDS ORDERED: LACTATED RINGERS SOLUTION 1,000 ML IV SCH ×2 (18:15→19:15)
[2022-12-08] MEDS ORDERED: ACETAMINOPHEN INJECTION 100 ML IVPB ONE (18:44)
[2022-12-08] MEDS ORDERED: ACETAMINOPHEN 1000 MG/100 ML BAG IVPB SCH (18:45)
[2022-12-08] MEDS: ACETAMINOPHEN 1000 MG/100 ML BAG IVPB SCH (18:49)
[2022-12-08] MEDS ORDERED: HYDROmorphone HCl 2 MG/ML VIAL IVPUSH ONE ×3 (19:31→20:15)
[2022-12-08] MEDS ORDERED: HYDROmorphone HCl 2 MG/ML VIAL IVPUSH PRN (20:17)
[2022-12-08] MEDS: oxyCODONE HCL 5 MG TABLET PO PRN (21:43)
[2022-12-08] MEDS: ONDANSETRON 4 MG/2 ML VIAL IVPUSH PRN (22:16)
[2022-12-09] MEDS: ACETAMINOPHEN 1000 MG/100 ML BAG IVPB SCH ×4 (00:12→18:41)
[2022-12-09] MEDS: oxyCODONE HCL 5 MG TABLET PO PRN (02:52)
[2022-12-09] MEDS ORDERED: INSULIN (NOVOLOG) ASPART 100 UNITS/ML 10ML VIAL ONE ×3 (07:35→17:29)
[2022-12-09] MEDS: INSULIN SLIDING SCALE (NOVOLOG) 1 VIAL SQ SCH ×3 (07:36→17:30)
[2022-12-09] MEDS ORDERED: oxyCODONE HCL 5 MG TABLET PO PRN ×3 (08:07→08:34)
[2022-12-09 08:18] LABS: BASO % 0.3 % (0-2.0); EOS % 0.4 % (0-4.5); HEMATOCRIT 34.1 % (35.4-49); HEMOGLOBIN 12.2 GM/dL (11.7-16.9); LYMPH % 19.6 % (8-40); MCH 33.1 pg (25.7-33.7); MCHC 35.9 g/dl (32.0-35.9); MEAN CELL VOLUME 92.3 fl (80-96); MONO % 11.1 % (3.8-10.2); NEUT % 68.6 % (42.8-82.8); PLATELET COUNT 127 10^3/uL (134-434); RBC 3.69 M/mm3 (4.00-5.60); RDW 12.6 % (11.9-15.9); WHITE BLOOD COUNT 5.4 K/mm3 (4.0-10.0)
[2022-12-09 08:20] LABS: INR 1.1 (0.83-1.09); PROTHROMBIN TIME (PATIENT) 12.8 SEC (9.7-13.0)
[2022-12-09 08:39] LABS: POTASSIUM 3.8 mmol/L (3.5-5.1)
[2022-12-09 08:51] LABS: CALCIUM 8.9 mg/dL (8.5-10.1)
[2022-12-09 08:52] LABS: BLOOD UREA NITROGEN 7.3 mg/dL (7-18); MAGNESIUM 1.8 mg/dL (1.8-2.4)
[2022-12-09 08:55] LABS: CREATININE 0.7 mg/dL (0.55-1.3)
[2022-12-09 08:57] LABS: BILIRUBIN,TOTAL 0.7 mg/dL (0.2-1)
[2022-12-09] MEDS ORDERED: LACTATED RINGERS SOLUTION 1,000 ML IV SCH (08:58)
[2022-12-09 09:05] LABS: ALBUMIN 3.1 g/dl (3.4-5.0)
[2022-12-09] MEDS: ENOXAPARIN NA (PORCINE) 40 MG/0.4 ML DISP.SYRIN SQ SCH (09:08)
[2022-12-09] MEDS: LACTATED RINGERS SOLUTION 1,000 ML IV SCH ×2 (09:20→17:23)
[2022-12-09] MEDS: LISINOPRIL 5 MG TABLET PO SCH (09:21)
[2022-12-09] MEDS ORDERED: morphine SULFATE 4 MG/ML VIAL IVPUSH ONE (12:28)
[2022-12-09] MEDS: IBUPROFEN 800 MG/8 ML IJ IVPB SCH ×2 (17:14→21:06)
[2022-12-09] MEDS: oxyCODONE HCL 5 MG TABLET PO SCH ×2 (17:15→21:07)
[2022-12-09] MEDS: morphine SULFATE 4 MG/ML VIAL IVPUSH PRN ×2 (18:39→22:01)
[2022-12-10] MEDS: ACETAMINOPHEN 1000 MG/100 ML BAG IVPB SCH ×4 (00:31→18:06)
[2022-12-10] MEDS: morphine SULFATE 4 MG/ML VIAL IVPUSH PRN (01:19)
[2022-12-10] MEDS: IBUPROFEN 800 MG/8 ML IJ IVPB SCH ×2 (03:14→09:25)
[2022-12-10] MEDS: oxyCODONE HCL 5 MG TABLET PO SCH ×2 (03:15→09:27)
[2022-12-10] MEDS: INSULIN SLIDING SCALE (NOVOLOG) 1 VIAL SQ SCH ×3 (06:34→17:04)
[2022-12-10 08:48] LABS: BASO % 0.2 % (0-2.0); EOS % 1.4 % (0-4.5); HEMATOCRIT 32.1 % (35.4-49); HEMOGLOBIN 11.4 GM/dL (11.7-16.9); LYMPH % 21.8 % (8-40); MCH 33.3 pg (25.7-33.7); MCHC 35.7 g/dl (32.0-35.9); MEAN CELL VOLUME 93.5 fl (80-96); MEAN PLT VOLUME 8.1 fl (7.5-11.1); MONO % 10.5 % (3.8-10.2); NEUT % 66.1 % (42.8-82.8); PLATELET COUNT 121 10^3/uL (134-434); RBC 3.43 M/mm3 (4.00-5.60); RDW 12.6 % (11.9-15.9); WHITE BLOOD COUNT 4.6 K/mm3 (4.0-10.0)
[2022-12-10 08:49] LABS: INR 1.09 (0.83-1.09); PROTHROMBIN TIME (PATIENT) 12.6 SEC (9.7-13.0)
[2022-12-10 09:07] LABS: POTASSIUM 3.9 mmol/L (3.5-5.1)
[2022-12-10 09:11] LABS: BLOOD UREA NITROGEN 3.4 mg/dL (7-18); CALCIUM 8.7 mg/dL (8.5-10.1)
[2022-12-10 09:12] LABS: ALBUMIN 2.9 g/dl (3.4-5.0)
[2022-12-10 09:14] LABS: CREATININE 0.6 mg/dL (0.55-1.3)
[2022-12-10 09:16] LABS: BILIRUBIN,TOTAL 0.8 mg/dL (0.2-1); TOT PROT 5.6 g/dl (6.4-8.2)
[2022-12-10] MEDS: LACTATED RINGERS SOLUTION 1,000 ML IV SCH (09:26)
[2022-12-10] MEDS: LISINOPRIL 5 MG TABLET PO SCH (09:27)
[2022-12-10] MEDS ORDERED: PROCHLORPERAZINE MALEATE 5 MG TABLET PO PRN (10:23)
[2022-12-10] MEDS: oxyCODONE HCL 5 MG TABLET PO PRN ×2 (15:11→19:37)
[2022-12-11] MEDS: oxyCODONE HCL 5 MG TABLET PO PRN ×5 (00:32→20:06)
[2022-12-11] MEDS: ONDANSETRON 4 MG/2 ML VIAL IVPUSH PRN (05:36)
[2022-12-11] MEDS ORDERED: INSULIN (NOVOLOG) ASPART 100 UNITS/ML 10ML VIAL ONE (05:58)
[2022-12-11] MEDS: INSULIN SLIDING SCALE (NOVOLOG) 1 VIAL SQ SCH ×3 (06:05→17:09)
[2022-12-11] MEDS: LISINOPRIL 5 MG TABLET PO SCH (09:35)
[2022-12-11 10:27] LABS: BASO % 0.2 % (0-2.0); EOS % 1.6 % (0-4.5); HEMATOCRIT 34.5 % (35.4-49); HEMOGLOBIN 12.2 GM/dL (11.7-16.9); LYMPH % 25.8 % (8-40); MCH 32.9 pg (25.7-33.7); MCHC 35.5 g/dl (32.0-35.9); MEAN CELL VOLUME 92.8 fl (80-96); MONO % 8.9 % (3.8-10.2); NEUT % 63.5 % (42.8-82.8); PLATELET COUNT 145 10^3/uL (134-434); RBC 3.71 M/mm3 (4.00-5.60); RDW 12.3 % (11.9-15.9); WHITE BLOOD COUNT 4.8 K/mm3 (4.0-10.0)
[2022-12-11 10:44] LABS: CALCIUM 9.2 mg/dL (8.5-10.1)
[2022-12-11 10:45] LABS: ALBUMIN 3.4 g/dl (3.4-5.0)
[2022-12-11 10:48] LABS: CREATININE 0.7 mg/dL (0.55-1.3)
[2022-12-11 10:49] LABS: BILIRUBIN,TOTAL 0.4 mg/dL (0.2-1); TOT PROT 6.4 g/dl (6.4-8.2)
[2022-12-11] MEDS: ENOXAPARIN NA (PORCINE) 40 MG/0.4 ML DISP.SYRIN SQ SCH (12:26)
[2022-12-11] MEDS: LIRAGLUTIDE 0.6 MG/0.1 ML PEN.INJCTR SQ SCH (12:43)
[2022-12-12] MEDS: oxyCODONE HCL 5 MG TABLET PO PRN ×8 (00:11→20:59)
[2022-12-12] MEDS: INSULIN SLIDING SCALE (NOVOLOG) 1 VIAL SQ SCH ×3 (06:51→17:28)
[2022-12-12] MEDS: LISINOPRIL 5 MG TABLET PO SCH (09:20)
[2022-12-12] MEDS: ENOXAPARIN NA (PORCINE) 40 MG/0.4 ML DISP.SYRIN SQ SCH (09:20)
[2022-12-12] MEDS: LIRAGLUTIDE 0.6 MG/0.1 ML PEN.INJCTR SQ SCH (11:48)
[2022-12-13] MEDS: oxyCODONE HCL 5 MG TABLET PO PRN ×6 (00:17→22:53)
[2022-12-13] MEDS: INSULIN SLIDING SCALE (NOVOLOG) 1 VIAL SQ SCH ×3 (06:15→17:16)
[2022-12-13] MEDS: ENOXAPARIN NA (PORCINE) 40 MG/0.4 ML DISP.SYRIN SQ SCH (09:38)
[2022-12-13] MEDS: LISINOPRIL 5 MG TABLET PO SCH (09:38)
[2022-12-13] MEDS: LIRAGLUTIDE 0.6 MG/0.1 ML PEN.INJCTR SQ SCH (09:39)
[2022-12-14 02:46] VITALS: TEMP 98
[2022-12-14] MEDS: oxyCODONE HCL 5 MG TABLET PO PRN ×2 (03:17→07:04)
[2022-12-14] MEDS ORDERED: INSULIN (NOVOLOG) ASPART 100 UNITS/ML 10ML VIAL ONE (07:03)
[2022-12-14] MEDS: INSULIN SLIDING SCALE (NOVOLOG) 1 VIAL SQ SCH (07:06)
[2022-12-14] MEDS: LISINOPRIL 5 MG TABLET PO SCH (09:54)
[2022-12-14] MEDS: ENOXAPARIN NA (PORCINE) 40 MG/0.4 ML DISP.SYRIN SQ SCH (09:54)
[2022-12-14] MEDS: LIRAGLUTIDE 0.6 MG/0.1 ML PEN.INJCTR SQ SCH (09:56)
[2022-12-14 10:16] VITALS: BP 145/90; PULSE 89; RESP 20
== END 2022-12-14 10:38 | disposition home health service (06) | DRG 221 ==
LOC: JER 11:10 → JERBED 12:25 → J8W 15:15
PROVIDERS: ADMIT Internal Medicine; ATTEND Nurse Practitioner Acute Care
PROC: 8E0W0CZ Robotic Assisted Procedure of Trunk Region, Open Approach (ICD-10-PCS; 2022-12-08)
PROC: 0T788DZ Dilation of Bilateral Ureters with Intraluminal Device, Via Natural or Artificial Opening Endoscopic (ICD-10-PCS; 2022-12-08)
PROC: 0DTN0ZZ Resection of Sigmoid Colon, Open Approach (ICD-10-PCS; principal; 2022-12-08 10:30)
PROC: 4A1635H Monitoring of Lymphatic Flow using Indocyanine Green Dye, Percutaneous Approach (ICD-10-PCS; 2022-12-08 10:30)
DX: K57.32 Diverticulitis of large intestine without perforation or abscess without bleeding (principal); I10 Essential (primary) hypertension; E11.9 Type 2 diabetes mellitus without complications; E78.5 Hyperlipidemia, unspecified; R31.9 Hematuria, unspecified
CPT/HCPCS: 36415; 71046-TC-FY; 74177-TC; 80048; 80053; 81003; 82962; 83036; 83690; 83735; 85025; 85610; 85730; 86140; 86850; 86900; 86901; 87086; 88307-TC; 93005; 93010; 93306-TC; 94760; 97116-GP; 97161-GP; 99285-25; C9803-CS; J1644; Q9967; U0003; U0005

== ENCOUNTER 2023-01-03 08:37 | Emergency (ER) | payer OTHER ==
[2023-01-03 08:50] VITALS: BP 129/84; PULSE 88; RESP 18; TEMP 98.2; BMI 30.5
[2023-01-03] MEDS ORDERED: SULFAMETHOXAZOLE/TRIMETHOPRIM 800MG/160MG D.S. TABLET PO ONE (09:53)
[2023-01-03] MEDS ORDERED: SULFAMETHOXAZOLE/TRIMETHOPRIM 800MG/160MG D.S. TABLET ONE (10:09)
== END 2023-01-03 10:14 | disposition home or self-care (01) ==
LOC: JER 08:37
PROC: 0H9MXZZ Drainage of Right Foot Skin, External Approach (ICD-10-PCS; principal; 2023-01-03)
DX: M79.671 Pain in right foot (principal); L02.611 Cutaneous abscess of right foot
CPT/HCPCS: 99283-25

== ENCOUNTER 2023-03-09 16:48 | Emergency (ER) | payer OTHER ==
[2023-03-09 17:03] VITALS: BMI 29.1
[2023-03-09] MEDS ORDERED: KETOROLAC TROMETHAMINE 30 MG/1 ML VIAL IM ONE (18:57)
[2023-03-09] MEDS ORDERED: SODIUM CHLORIDE 0.9% 1000 ML INFUS.BAG IV ONE (18:58)
[2023-03-09] MEDS ORDERED: KETOROLAC TROMETHAMINE 30 MG/1 ML VIAL ONE (19:14)
[2023-03-09] MEDS ORDERED: ACETAMINOPHEN 1000 MG/100 ML BAG IVPB ONE (20:15)
[2023-03-09] MEDS ORDERED: ACETAMINOPHEN INJECTION 100 ML IVPB ONE (20:17)
[2023-03-09 20:18] LABS: URINE APPEARANCE CLEAR; URINE BILIRUBIN NEGATIVE (NEGATIVE); URINE COLOR YELLOW; URINE GLUCOSE (UA) NEGATIVE (NEGATIVE); URINE KETONE 2+ (NEGATIVE); URINE LEUK ESTERASE NEGATIVE (NEGATIVE); URINE NITRITE NEGATIVE (NEGATIVE); URINE PROTEIN NEGATIVE (NEGATIVE); URINE UROBILINOGEN 0.2 mg/dL (0.2-1.0)
[2023-03-09 20:19] LABS: BASO % 0.1 % (0-2.0); EOS % 0.1 % (0-4.5); HEMATOCRIT 42.8 % (35.4-49); HEMOGLOBIN 14.8 GM/dL (11.7-16.9); LYMPH % 15.4 % (8-40); MCH 31.7 pg (25.7-33.7); MCHC 34.6 g/dl (32.0-35.9); MEAN CELL VOLUME 91.7 fl (80-96); MEAN PLT VOLUME 8.6 fl (7.5-11.1); MONO % 18.5 % (3.8-10.2); NEUT % 65.9 % (42.8-82.8); PLATELET COUNT 113 10^3/uL (134-434); RBC 4.66 M/mm3 (4.00-5.60); RDW 13.8 % (11.9-15.9); WHITE BLOOD COUNT 3.1 K/mm3 (4.0-10.0)
[2023-03-09 20:43] LABS: POTASSIUM 3.7 mmol/L (3.5-5.1)
[2023-03-09 20:47] LABS: ALBUMIN 4.1 g/dl (3.4-5.0); BLOOD UREA NITROGEN 6.6 mg/dL (7-18)
[2023-03-09 20:50] LABS: CREATININE 0.8 mg/dL (0.55-1.3)
[2023-03-09 20:52] LABS: BILIRUBIN,TOTAL 0.8 mg/dL (0.2-1)
[2023-03-09 21:41] VITALS: BP 130/75; PULSE 73; RESP 16; TEMP 99.2
== END 2023-03-09 22:47 | disposition home or self-care (01) ==
LOC: JER 16:48
PROC: 3E033NZ Introduction of Analgesics, Hypnotics, Sedatives into Peripheral Vein, Percutaneous Approach (ICD-10-PCS; principal; 2023-03-09)
PROC: 3E0233Z Introduction of Anti-inflammatory into Muscle, Percutaneous Approach (ICD-10-PCS; 2023-03-09)
DX: R50.9 Fever, unspecified (principal); R53.83 Other fatigue; R51.9 Headache, unspecified; M54.2 Cervicalgia; M79.10 Myalgia, unspecified site; R11.2 Nausea with vomiting, unspecified; H53.71 Glare sensitivity; R05.9 Cough, unspecified; R09.81 Nasal congestion; U07.1 COVID-19
CPT/HCPCS: 0241U-QW; 36415; 70450-TC; 70486-TC; 80053; 81003; 85025; 87040; 93005; 93010; 99285-25

== ENCOUNTER 2023-05-30 09:07 | Inpatient (IN) | payer OTHER ==
[2023-05-30] MEDS ORDERED: SODIUM CHLORIDE 0.9% 500 ML INFUS.BAG IV ONE (10:05)
[2023-05-30] MEDS ORDERED: VANCOMYCIN 1,000 MG in DEXTROSE 5%-WATER - 250 ML IVPB ONE (10:07)
[2023-05-30] MEDS ORDERED: ACETAMINOPHEN 1000 MG/100 ML BAG IVPB ONE (10:09)
[2023-05-30] MEDS ORDERED: VANCOMYCIN 1 GRAM (PRE-DOCKED) 1,000 MG/250 ML BAG IVPB ONE (10:43)
[2023-05-30 11:20] LABS: BASO % 0.3 % (0-2.0); EOS % 0.3 % (0-4.5); HEMATOCRIT 47.9 % (35.4-49); HEMOGLOBIN 16.3 GM/dL (11.7-16.9); LYMPH % 12.3 % (8-40); MCHC 34.1 g/dl (32.0-35.9); MEAN PLT VOLUME 7.5 fl (7.5-11.1); MONO % 8.9 % (3.8-10.2); NEUT % 78.2 % (42.8-82.8); PLATELET COUNT 155 10^3/uL (134-434); RDW 13.1 % (11.9-15.9)
[2023-05-30 11:40] LABS: POTASSIUM 4.4 mmol/L (3.5-5.1)
[2023-05-30 11:42] LABS: ALBUMIN 4.1 g/dl (3.4-5.0); BLOOD UREA NITROGEN 7.5 mg/dL (7-18); CALCIUM 9.4 mg/dL (8.5-10.1)
[2023-05-30 11:46] LABS: CREATININE 0.8 mg/dL (0.55-1.3)
[2023-05-30 11:47] LABS: BILIRUBIN,TOTAL 1.1 mg/dL (0.2-1); TOT PROT 7.8 g/dl (6.4-8.2)
[2023-05-30 12:05] LABS: LACTIC ACID 2.4 mmol/L (0.4-2.0)
[2023-05-30] MEDS ORDERED: ACETAMINOPHEN 325 MG TABLET (FP) PO PRN (12:29)
[2023-05-30 13:45] VITALS: BMI 30.1
[2023-05-30] MEDS: LACTATED RINGERS SOLUTION 1,000 ML IV SCH (13:53)
[2023-05-30] MEDS ORDERED: INSULIN SLIDING SCALE (NOVOLOG) 1 VIAL SQ SCH (16:30)
[2023-05-30] MEDS: INSULIN SLIDING SCALE (NOVOLOG) 1 VIAL SQ SCH (16:41)
[2023-05-30] MEDS: ATORVASTATIN CA 40 MG TABLET (FP) PO SCH (21:46)
[2023-05-30] MEDS: VANCOMYCIN PREMIX 1.5 GM 1,500 MG/300 ML BAG IVPB SCH (21:52)
[2023-05-30] MEDS ORDERED: VANCOMYCIN HCL 1,500 MG in DEXTROSE 5%-WATER - 250 ML IVPB SCH (22:00)
[2023-05-31] MEDS: INSULIN SLIDING SCALE (NOVOLOG) 1 VIAL SQ SCH ×3 (06:19→16:47)
[2023-05-31] MEDS: LACTATED RINGERS SOLUTION 1,000 ML IV SCH ×2 (08:56→21:51)
[2023-05-31] MEDS ORDERED: ACETAMINOPHEN 1000 MG/100 ML BAG IVPB PRN (09:05)
[2023-05-31 09:42] LABS: BASO % 0.2 % (0-2.0); HEMATOCRIT 39.2 % (35.4-49); HEMOGLOBIN 13.7 GM/dL (11.7-16.9); MCH 32.4 pg (25.7-33.7); MEAN CELL VOLUME 92.5 fl (80-96); MEAN PLT VOLUME 7.5 fl (7.5-11.1); NEUT % 68.8 % (42.8-82.8); PLATELET COUNT 107 10^3/uL (134-434); RBC 4.24 M/mm3 (4.00-5.60); RDW 13.1 % (11.9-15.9); WHITE BLOOD COUNT 4.7 K/mm3 (4.0-10.0)
[2023-05-31 09:59] LABS: POTASSIUM 3.6 mmol/L (3.5-5.1)
[2023-05-31 10:06] LABS: BLOOD UREA NITROGEN 6.5 mg/dL (7-18); CALCIUM 8.7 mg/dL (8.5-10.1)
[2023-05-31 10:09] LABS: CREATININE 0.7 mg/dL (0.55-1.3); PHOSPHOROUS 2.4 mg/dL (2.5-4.9)
[2023-05-31 10:10] LABS: BILIRUBIN,TOTAL 0.8 mg/dL (0.2-1); TOT PROT 6.2 g/dl (6.4-8.2)
[2023-05-31 10:17] LABS: ALBUMIN 3.2 g/dl (3.4-5.0)
[2023-05-31] MEDS: ENOXAPARIN NA (PORCINE) 40 MG/0.4 ML DISP.SYRIN SQ SCH (11:05)
[2023-05-31] MEDS: LISINOPRIL 5 MG TABLET PO SCH (11:07)
[2023-05-31] MEDS: VANCOMYCIN PREMIX 1.5 GM 1,500 MG/300 ML BAG IVPB SCH (11:08)
[2023-05-31] MEDS: ATORVASTATIN CA 40 MG TABLET (FP) PO SCH (21:51)
[2023-05-31] MEDS: VANCOMYCIN/WATER 1250 MG 1,250 MG/250 ML BAG IVPB SCH (22:41)
[2023-06-01] MEDS: IBUPROFEN 600 MG TABLET (FP) PO PRN ×2 (00:54→15:05)
[2023-06-01] MEDS: LACTATED RINGERS SOLUTION 1,000 ML IV SCH ×2 (01:52→21:50)
[2023-06-01] MEDS: INSULIN SLIDING SCALE (NOVOLOG) 1 VIAL SQ SCH ×3 (06:10→16:45)
[2023-06-01] MEDS ORDERED: NAPH,MB-DB/K PH,MBDB POWDER PACKET PO ONE (07:33)
[2023-06-01] MEDS: ENOXAPARIN NA (PORCINE) 40 MG/0.4 ML DISP.SYRIN SQ SCH (09:14)
[2023-06-01] MEDS: LISINOPRIL 5 MG TABLET PO SCH (09:15)
[2023-06-01 09:52] LABS: BLOOD UREA NITROGEN 10.2 mg/dL (7-18); CALCIUM 8.7 mg/dL (8.5-10.1); MAGNESIUM 1.9 mg/dL (1.8-2.4)
[2023-06-01 09:56] LABS: CREATININE 0.7 mg/dL (0.55-1.3); PHOSPHOROUS 3.2 mg/dL (2.5-4.9)
[2023-06-01] MEDS ORDERED: INSULIN (LEVEMIR) 100 UNITS/ML UNITS SQ SCH (10:00)
[2023-06-01] MEDS: VANCOMYCIN/WATER 1250 MG 1,250 MG/250 ML BAG IVPB SCH ×2 (10:22→22:11)
[2023-06-01] MEDS: ATORVASTATIN CA 40 MG TABLET (FP) PO SCH (21:50)
[2023-06-01] MEDS ORDERED: INSULIN (LEVEMIR) 100 UNITS/ML UNITS SQ ONE (22:00)
[2023-06-02] MEDS: INSULIN SLIDING SCALE (NOVOLOG) 1 VIAL SQ SCH ×3 (05:59→16:53)
[2023-06-02] MEDS ORDERED: ONDANSETRON 4 MG/2 ML VIAL IVPUSH PRN ×2 (09:09→13:56)
[2023-06-02] MEDS ORDERED: LACTATED RINGERS SOLUTION 1,000 ML IV SCH ×2 (09:15→13:56)
[2023-06-02] MEDS: LISINOPRIL 5 MG TABLET PO SCH (10:23)
[2023-06-02] MEDS: VANCOMYCIN/WATER 1250 MG 1,250 MG/250 ML BAG IVPB SCH (10:23)
[2023-06-02 10:44] LABS: BASO % 0.3 % (0-2.0); EOS % 1.3 % (0-4.5); HEMATOCRIT 41.2 % (35.4-49); HEMOGLOBIN 13.9 GM/dL (11.7-16.9); LYMPH % 22.3 % (8-40); MCH 31.9 pg (25.7-33.7); MCHC 33.8 g/dl (32.0-35.9); MEAN CELL VOLUME 94.2 fl (80-96); MEAN PLT VOLUME 7.5 fl (7.5-11.1); MONO % 8.9 % (3.8-10.2); NEUT % 67.2 % (42.8-82.8); PLATELET COUNT 127 10^3/uL (134-434); RBC 4.37 M/mm3 (4.00-5.60); RDW 12.7 % (11.9-15.9); WHITE BLOOD COUNT 4.4 K/mm3 (4.0-10.0)
[2023-06-02 10:59] LABS: POTASSIUM 4.1 mmol/L (3.5-5.1)
[2023-06-02 11:14] LABS: BLOOD UREA NITROGEN 9.3 mg/dL (7-18)
[2023-06-02 11:16] LABS: CALCIUM 9.2 mg/dL (8.5-10.1); CREATININE 0.6 mg/dL (0.55-1.3); MAGNESIUM 2.1 mg/dL (1.8-2.4); PHOSPHOROUS 3.1 mg/dL (2.5-4.9)
[2023-06-02] MEDS ORDERED: LIDOCAINE HCL/PF 2% SDV 5ML VIAL ONE (12:46)
[2023-06-02] MEDS ORDERED: FENTANYL CITRATE/PF 50 MCG/ML VIAL ONE ×5 (12:47→14:32)
[2023-06-02] MEDS ORDERED: PROPOFOL 20 ML ONE ×2 (12:47→13:07)
[2023-06-02] MEDS ORDERED: MIDAZOLAM HCL 2 MG/2 ML SINGLE DOSE VIAL ONE (12:47)
[2023-06-02] MEDS ORDERED: ONDANSETRON 4 MG/2 ML VIAL ONE (13:11)
[2023-06-02] MEDS ORDERED: KETOROLAC TROMETHAMINE 30 MG/1 ML VIAL ONE (13:11)
[2023-06-02] MEDS ORDERED: BUPIVACAINE HCL/PF 0.5% (5MG/ML) 10 ML VIAL IJ ONE (13:15)
[2023-06-02] MEDS ORDERED: ACETAMINOPHEN 325 MG TABLET (FP) PO PRN (13:56)
[2023-06-02] MEDS: LACTATED RINGERS SOLUTION 1,000 ML IV SCH (15:48)
[2023-06-02] MEDS: ATORVASTATIN CA 40 MG TABLET (FP) PO SCH (21:42)
[2023-06-03] MEDS: IBUPROFEN 600 MG TABLET (FP) PO PRN ×2 (05:54→16:49)
[2023-06-03] MEDS: INSULIN SLIDING SCALE (NOVOLOG) 1 VIAL SQ SCH ×4 (05:59→22:48)
[2023-06-03] MEDS: ENOXAPARIN NA (PORCINE) 40 MG/0.4 ML DISP.SYRIN SQ SCH (09:32)
[2023-06-03 09:47] LABS: BASO % 0.4 % (0-2.0); EOS % 1.5 % (0-4.5); HEMOGLOBIN 13.6 GM/dL (11.7-16.9); LYMPH % 23.4 % (8-40); MCH 32.3 pg (25.7-33.7); MEAN CELL VOLUME 94.8 fl (80-96); MEAN PLT VOLUME 7.5 fl (7.5-11.1); MONO % 9.1 % (3.8-10.2); NEUT % 65.6 % (42.8-82.8); PLATELET COUNT 118 10^3/uL (134-434); RBC 4.21 M/mm3 (4.00-5.60); RDW 12.7 % (11.9-15.9); WHITE BLOOD COUNT 4.7 K/mm3 (4.0-10.0)
[2023-06-03 10:13] LABS: POTASSIUM 4.2 mmol/L (3.5-5.1)
[2023-06-03 10:41] LABS: CALCIUM 9.3 mg/dL (8.5-10.1)
[2023-06-03 10:42] LABS: ALBUMIN 3.3 g/dl (3.4-5.0)
[2023-06-03 10:44] LABS: PHOSPHOROUS 3.1 mg/dL (2.5-4.9)
[2023-06-03 10:45] LABS: CREATININE 0.7 mg/dL (0.55-1.3)
[2023-06-03 10:46] LABS: BILIRUBIN,TOTAL 0.5 mg/dL (0.2-1); TOT PROT 6.6 g/dl (6.4-8.2)
[2023-06-03] MEDS: LISINOPRIL 5 MG TABLET PO SCH (11:00)
[2023-06-03] MEDS ORDERED: INSULIN (NOVOLOG) ASPART 100 UNITS/ML 10ML VIAL ONE ×2 (11:24→16:48)
[2023-06-03] MEDS: CLINDAMYCIN 300 MG PREMIX IVPB 300 MG/50 ML BAG IVPB SCH ×2 (11:26→18:15)
[2023-06-03] MEDS ORDERED: INSULIN (LEVEMIR) 100 UNITS/ML UNITS SQ ONE (11:30)
[2023-06-03] MEDS ORDERED: CEFPODOXIME PROXETIL 100 MG TABLET PO ONE (11:32)
[2023-06-03] MEDS: ATORVASTATIN CA 40 MG TABLET (FP) PO SCH (21:10)
[2023-06-04] MEDS: CLINDAMYCIN 300 MG PREMIX IVPB 300 MG/50 ML BAG IVPB SCH ×2 (01:10→09:28)
[2023-06-04] MEDS: INSULIN SLIDING SCALE (NOVOLOG) 1 VIAL SQ SCH ×2 (06:15→11:28)
[2023-06-04] MEDS: LISINOPRIL 5 MG TABLET PO SCH (09:27)
[2023-06-04] MEDS: IBUPROFEN 600 MG TABLET (FP) PO PRN (09:27)
[2023-06-04] MEDS: ENOXAPARIN NA (PORCINE) 40 MG/0.4 ML DISP.SYRIN SQ SCH (09:27)
[2023-06-04 13:47] LABS: PH,URINE 5.5 (5.0-8.0); URINE APPEARANCE CLEAR; URINE BILIRUBIN NEGATIVE (NEGATIVE); URINE COLOR YELLOW; URINE GLUCOSE (UA) 3+ (NEGATIVE); URINE KETONE NEGATIVE (NEGATIVE); URINE LEUK ESTERASE NEGATIVE (NEGATIVE); URINE NITRITE NEGATIVE (NEGATIVE); URINE PROTEIN NEGATIVE (NEGATIVE); URINE UROBILINOGEN 0.2 mg/dL (0.2-1.0)
[2023-06-04 14:34] VITALS: BP 149/97; PULSE 70; RESP 18; TEMP 98.2
== END 2023-06-04 14:34 | disposition home or self-care (01) | DRG 385 ==
LOC: JERFT 09:07 → JER 09:07 → UNDOADMOB 12:13 → JERBED 12:13 → INTOOBSV 12:13 → JERBED 12:29 → J5S 13:17 → OBSVTOIN 05-31 11:02 → J6S 05-31 20:39
PROVIDERS: ADMIT Internal Medicine; ATTEND Internal Medicine
PROC: 0J9D00Z Drainage of Right Upper Arm Subcutaneous Tissue and Fascia with Drainage Device, Open Approach (ICD-10-PCS; principal; 2023-06-02 13:30)
DX: L73.2 Hidradenitis suppurativa (principal); E87.20 Acidosis, unspecified; E11.65 Type 2 diabetes mellitus with hyperglycemia; E78.5 Hyperlipidemia, unspecified; I10 Essential (primary) hypertension; A49.02 Methicillin resistant Staphylococcus aureus infection, unspecified site; L02.419 Cutaneous abscess of limb, unspecified; L03.111 Cellulitis of right axilla
CPT/HCPCS: 36415; 76882-TC-RT-FY; 80048; 80053; 81003; 82962; 83036; 83605; 83735; 84100; 85025; 87040; 87070; 87077; 87081; 87186; 87205; 94760; 99285-25; G0378; G0480

== ENCOUNTER 2023-06-08 08:50 | Emergency (ER) | payer OTHER ==
[2023-06-08 09:04] VITALS: TEMP 98.5; BMI 29.8
[2023-06-08] MEDS ORDERED: ACETAMINOPHEN 1000 MG/100 ML BAG IVPB ONE (12:14)
[2023-06-08] MEDS ORDERED: ACETAMINOPHEN INJECTION 100 ML IVPB ONE (12:52)
[2023-06-08 13:03] LABS: BASO % 0.4 % (0-2.0); EOS % 1.5 % (0-4.5); HEMATOCRIT 42.1 % (35.4-49); LYMPH % 30.7 % (8-40); MCH 32.5 pg (25.7-33.7); MCHC 35.6 g/dl (32.0-35.9); MEAN CELL VOLUME 91.4 fl (80-96); MEAN PLT VOLUME 7.6 fl (7.5-11.1); NEUT % 57.4 % (42.8-82.8); PLATELET COUNT 198 10^3/uL (134-434); RBC 4.61 M/mm3 (4.00-5.60); RDW 12.7 % (11.9-15.9); WHITE BLOOD COUNT 5.2 K/mm3 (4.0-10.0)
[2023-06-08 13:12] LABS: INR 1.1 (0.83-1.09); PROTHROMBIN TIME (PATIENT) 12.7 SEC (9.7-13.0)
[2023-06-08 13:14] LABS: ACTIVATED PTT 28.9 SECONDS (25.2-36.5)
[2023-06-08 13:20] LABS: POTASSIUM 4.1 mmol/L (3.5-5.1)
[2023-06-08 13:22] LABS: CALCIUM 9.6 mg/dL (8.5-10.1)
[2023-06-08 13:23] LABS: BLOOD UREA NITROGEN 9.6 mg/dL (7-18)
[2023-06-08 13:26] LABS: CREATININE 0.8 mg/dL (0.55-1.3)
[2023-06-08 13:28] LABS: BILIRUBIN,TOTAL 0.8 mg/dL (0.2-1); TOT PROT 7.6 g/dl (6.4-8.2)
[2023-06-08] MEDS ORDERED: ONDANSETRON 4 MG/2 ML VIAL IVPUSH ONE (13:34)
[2023-06-08] MEDS ORDERED: ONDANSETRON 4 MG/2 ML VIAL ONE (13:52)
[2023-06-08] MEDS ORDERED: SODIUM CHLORIDE 0.9% 1000 ML INFUS.BAG IV ONE (14:07)
[2023-06-08 14:13] LABS: PH,URINE 5.5 (5.0-8.0); URINE APPEARANCE CLEAR; URINE BILIRUBIN NEGATIVE (NEGATIVE); URINE COLOR DK YELLOW; URINE GLUCOSE (UA) 2+ (NEGATIVE); URINE KETONE TRACE (NEGATIVE); URINE LEUK ESTERASE NEGATIVE (NEGATIVE); URINE NITRITE NEGATIVE (NEGATIVE); URINE PROTEIN TRACE (NEGATIVE); URINE UROBILINOGEN 0.2 mg/dL (0.2-1.0)
[2023-06-08 16:46] VITALS: BP 140/88; PULSE 74; RESP 16
== END 2023-06-08 16:46 | disposition home or self-care (01) ==
LOC: JER 08:50
PROC: 3E023NZ Introduction of Analgesics, Hypnotics, Sedatives into Muscle, Percutaneous Approach (ICD-10-PCS; principal; 2023-06-08)
PROC: 3E023GC Introduction of Other Therapeutic Substance into Muscle, Percutaneous Approach (ICD-10-PCS; 2023-06-08)
DX: L02.411 Cutaneous abscess of right axilla (principal); M79.621 Pain in right upper arm; R53.1 Weakness; R50.9 Fever, unspecified; Z20.822 Contact with and (suspected) exposure to COVID-19
CPT/HCPCS: 0241U-QW; 36415; 71046-TC-FY; 80053; 81003; 83605; 85025; 85610; 85730; 86850; 86900; 86901; 87040; 87086; 96374; 96375; 99284-25

== ENCOUNTER 2023-06-21 23:29 | Inpatient (IN) | payer OTHER ==
[2023-06-22 01:25] LABS: BASO % 0.3 % (0-2.0); EOS % 0.4 % (0-4.5); HEMATOCRIT 44.9 % (35.4-49); HEMOGLOBIN 15.5 GM/dL (11.7-16.9); LYMPH % 32.4 % (8-40); MCH 32.4 pg (25.7-33.7); MCHC 34.6 g/dl (32.0-35.9); MEAN CELL VOLUME 93.7 fl (80-96); MEAN PLT VOLUME 8.1 fl (7.5-11.1); MONO % 7.5 % (3.8-10.2); NEUT % 59.4 % (42.8-82.8); PLATELET COUNT 169 10^3/uL (134-434); RBC 4.79 M/mm3 (4.00-5.60); RDW 12.8 % (11.9-15.9); WHITE BLOOD COUNT 5.7 K/mm3 (4.0-10.0)
[2023-06-22 01:29] LABS: PH,URINE 5.5 (5.0-8.0); URINE APPEARANCE CLEAR; URINE BILIRUBIN NEGATIVE (NEGATIVE); URINE COLOR YELLOW; URINE GLUCOSE (UA) 3+ (NEGATIVE); URINE KETONE NEGATIVE (NEGATIVE); URINE LEUK ESTERASE NEGATIVE (NEGATIVE); URINE NITRITE NEGATIVE (NEGATIVE); URINE PROTEIN NEGATIVE (NEGATIVE); URINE UROBILINOGEN 0.2 mg/dL (0.2-1.0)
[2023-06-22 01:33] LABS: PROTHROMBIN TIME (PATIENT) 11.6 SEC (9.7-13.0)
[2023-06-22 01:35] LABS: ACTIVATED PTT 27.2 SECONDS (25.2-36.5)
[2023-06-22 02:12] LABS: POTASSIUM 4.2 mmol/L (3.5-5.1)
[2023-06-22 02:14] LABS: CALCIUM 8.7 mg/dL (8.5-10.1)
[2023-06-22 02:15] LABS: ALBUMIN 4.3 g/dl (3.4-5.0); BLOOD UREA NITROGEN 9.6 mg/dL (7-18)
[2023-06-22 02:18] LABS: CREATININE 0.8 mg/dL (0.55-1.3)
[2023-06-22 02:19] LABS: BILIRUBIN,TOTAL 0.6 mg/dL (0.2-1); TOT PROT 8.1 g/dl (6.4-8.2)
[2023-06-22] MEDS ORDERED: chlordiazePOXIDE HCL 25 MG CAPSULE PO PRN (08:32)
[2023-06-22] MEDS ORDERED: THIAMINE HCL 200 MG/2 ML VIAL IVPB ONE (08:36)
[2023-06-22] MEDS ORDERED: THIAMINE HCL 200 MG/2 ML VIAL ONE (08:56)
[2023-06-22] MEDS: chlordiazePOXIDE HCL 25 MG CAPSULE PO SCH ×4 (09:05→22:02)
[2023-06-22] MEDS ORDERED: MAG HYDROX/AL HYDROX/SIMETH 30 ML UNIT-DOSE CUP PO PRN (09:07)
[2023-06-22] MEDS ORDERED: LISINOPRIL 5 MG TABLET ONE (09:13)
[2023-06-22] MEDS ORDERED: FOLIC ACID 1 MG TABLET (FP) ONE ×2 (09:13→09:14)
[2023-06-22] MEDS ORDERED: ENOXAPARIN NA (PORCINE) 40 MG/0.4 ML DISP.SYRIN SQ ONE (09:14)
[2023-06-22] MEDS: LACTATED RINGERS SOLUTION 1,000 ML IV SCH (09:18)
[2023-06-22] MEDS: ENOXAPARIN NA (PORCINE) 40 MG/0.4 ML DISP.SYRIN SQ SCH (09:19)
[2023-06-22] MEDS: FOLIC ACID 1 MG TABLET (FP) PO SCH (09:19)
[2023-06-22] MEDS: LISINOPRIL 5 MG TABLET PO SCH (09:19)
[2023-06-22] MEDS ORDERED: chlordiazePOXIDE HCL 25 MG CAPSULE ONE (10:25)
[2023-06-22] MEDS: INSULIN SLIDING SCALE (NOVOLOG) 1 VIAL SQ SCH ×3 (11:23→21:38)
[2023-06-22] MEDS ORDERED: LORazepam 2 MG/ML SDV VIAL IVPUSH PRN (12:10)
[2023-06-22 13:57] VITALS: BMI 29.1
[2023-06-22] MEDS: THIAMINE HCL 200 MG/2 ML VIAL IVPB SCH ×3 (15:02→21:32)
[2023-06-22] MEDS: MULTIVITAMINS (DAILY MVI) TABLET (FP) PO SCH (15:02)
[2023-06-22] MEDS ORDERED: INSULIN (NOVOLOG) ASPART 100 UNITS/ML 10ML VIAL ONE (21:01)
[2023-06-22] MEDS: ATORVASTATIN CA 40 MG TABLET (FP) PO SCH (21:33)
[2023-06-23] MEDS: chlordiazePOXIDE HCL 25 MG CAPSULE PO SCH ×3 (05:02→17:40)
[2023-06-23] MEDS: LACTATED RINGERS SOLUTION 1,000 ML IV SCH ×2 (05:03→11:41)
[2023-06-23] MEDS: THIAMINE HCL 200 MG/2 ML VIAL IVPB SCH ×3 (05:04→21:49)
[2023-06-23] MEDS: INSULIN SLIDING SCALE (NOVOLOG) 1 VIAL SQ SCH ×4 (06:26→22:07)
[2023-06-23 08:36] LABS: HEMOGLOBIN 13.5 GM/dL (11.7-16.9); MCH 32.3 pg (25.7-33.7); MCHC 34.7 g/dl (32.0-35.9); MEAN CELL VOLUME 93.2 fl (80-96); MEAN PLT VOLUME 7.6 fl (7.5-11.1); PLATELET COUNT 85 10^3/uL (134-434); RBC 4.19 M/mm3 (4.00-5.60); RDW 12.6 % (11.9-15.9); WHITE BLOOD COUNT 2.7 K/mm3 (4.0-10.0)
[2023-06-23 08:56] LABS: POTASSIUM 4.1 mmol/L (3.5-5.1)
[2023-06-23 08:59] LABS: BLOOD UREA NITROGEN 8.4 mg/dL (7-18); CALCIUM 8.8 mg/dL (8.5-10.1)
[2023-06-23 09:02] LABS: CREATININE 0.8 mg/dL (0.55-1.3)
[2023-06-23] MEDS ORDERED: THIAMINE HCL 100 MG TABLET (FP) PO SCH (10:00)
[2023-06-23] MEDS: MULTIVITAMINS (DAILY MVI) TABLET (FP) PO SCH (11:26)
[2023-06-23] MEDS: ENOXAPARIN NA (PORCINE) 40 MG/0.4 ML DISP.SYRIN SQ SCH (11:26)
[2023-06-23] MEDS: LISINOPRIL 5 MG TABLET PO SCH (11:26)
[2023-06-23] MEDS: FOLIC ACID 1 MG TABLET (FP) PO SCH (11:26)
[2023-06-23] MEDS ORDERED: INSULIN (NOVOLOG) ASPART 100 UNITS/ML 10ML VIAL ONE ×5 (12:07→22:06)
[2023-06-23] MEDS: ATORVASTATIN CA 40 MG TABLET (FP) PO SCH (21:49)
[2023-06-24] MEDS: chlordiazePOXIDE HCL 25 MG CAPSULE PO SCH ×4 (05:03→22:10)
[2023-06-24] MEDS: INSULIN SLIDING SCALE (NOVOLOG) 1 VIAL SQ SCH ×4 (06:09→22:10)
[2023-06-24] MEDS ORDERED: INSULIN (NOVOLOG) ASPART 100 UNITS/ML 10ML VIAL ONE ×3 (06:13→17:16)
[2023-06-24] MEDS: ENOXAPARIN NA (PORCINE) 40 MG/0.4 ML DISP.SYRIN SQ SCH (10:38)
[2023-06-24] MEDS: MULTIVITAMINS (DAILY MVI) TABLET (FP) PO SCH (10:38)
[2023-06-24] MEDS: FOLIC ACID 1 MG TABLET (FP) PO SCH (10:39)
[2023-06-24] MEDS: THIAMINE HCL 100 MG TABLET (FP) PO SCH (10:39)
[2023-06-24] MEDS: LISINOPRIL 5 MG TABLET PO SCH (10:39)
[2023-06-24 15:53] LABS: BASO % 0.4 % (0-2.0); EOS % 2.2 % (0-4.5); HEMATOCRIT 39.4 % (35.4-49); HEMOGLOBIN 13.6 GM/dL (11.7-16.9); LYMPH % 35.6 % (8-40); MCH 32.2 pg (25.7-33.7); MCHC 34.6 g/dl (32.0-35.9); MEAN CELL VOLUME 92.9 fl (80-96); MEAN PLT VOLUME 8.3 fl (7.5-11.1); MONO % 11.2 % (3.8-10.2); NEUT % 50.6 % (42.8-82.8); PLATELET COUNT 99 10^3/uL (134-434); RBC 4.24 M/mm3 (4.00-5.60); RDW 12.6 % (11.9-15.9); WHITE BLOOD COUNT 3.1 K/mm3 (4.0-10.0)
[2023-06-24] MEDS: ATORVASTATIN CA 40 MG TABLET (FP) PO SCH (22:04)
[2023-06-25] MEDS ORDERED: chlordiazePOXIDE HCL 10 MG CAPSULE PO PRN ×3
[2023-06-25] MEDS: chlordiazePOXIDE HCL 10 MG CAPSULE PO SCH ×4 (05:27→23:00)
[2023-06-25] MEDS: INSULIN SLIDING SCALE (NOVOLOG) 1 VIAL SQ SCH ×4 (06:47→21:40)
[2023-06-25 09:20] LABS: BASO % 0.3 % (0-2.0); HEMATOCRIT 40.7 % (35.4-49); HEMOGLOBIN 14.2 GM/dL (11.7-16.9); LYMPH % 30.5 % (8-40); MCHC 34.8 g/dl (32.0-35.9); MEAN CELL VOLUME 91.8 fl (80-96); MEAN PLT VOLUME 8.1 fl (7.5-11.1); MONO % 11.1 % (3.8-10.2); NEUT % 56.1 % (42.8-82.8); PLATELET COUNT 101 10^3/uL (134-434); RBC 4.43 M/mm3 (4.00-5.60); RDW 12.7 % (11.9-15.9); WHITE BLOOD COUNT 3.8 K/mm3 (4.0-10.0)
[2023-06-25 09:37] LABS: ALBUMIN 3.6 g/dl (3.4-5.0); BLOOD UREA NITROGEN 13.4 mg/dL (7-18); CALCIUM 8.6 mg/dL (8.5-10.1)
[2023-06-25 09:40] LABS: CREATININE 0.9 mg/dL (0.55-1.3)
[2023-06-25 09:42] LABS: BILIRUBIN,TOTAL 0.9 mg/dL (0.2-1); TOT PROT 6.8 g/dl (6.4-8.2)
[2023-06-25] MEDS: LISINOPRIL 5 MG TABLET PO SCH (09:51)
[2023-06-25] MEDS: FOLIC ACID 1 MG TABLET (FP) PO SCH (09:51)
[2023-06-25] MEDS: MULTIVITAMINS (DAILY MVI) TABLET (FP) PO SCH (09:51)
[2023-06-25] MEDS: THIAMINE HCL 100 MG TABLET (FP) PO SCH (09:51)
[2023-06-25] MEDS ORDERED: INSULIN (NOVOLOG) ASPART 100 UNITS/ML 10ML VIAL ONE ×2 (11:24→17:35)
[2023-06-25] MEDS: INSULIN (LEVEMIR) 100 UNITS/ML UNITS SQ SCH ×2 (12:29→21:40)
[2023-06-25] MEDS: ATORVASTATIN CA 40 MG TABLET (FP) PO SCH (21:41)
[2023-06-26] MEDS: chlordiazePOXIDE HCL 10 MG CAPSULE PO ONE (06:12)
[2023-06-26] MEDS: chlordiazePOXIDE HCL 10 MG CAPSULE PO SCH ×2 (06:13→17:35)
[2023-06-26] MEDS: INSULIN SLIDING SCALE (NOVOLOG) 1 VIAL SQ SCH ×4 (06:15→21:42)
[2023-06-26] MEDS: INSULIN (LEVEMIR) 100 UNITS/ML UNITS SQ SCH ×2 (06:15→21:41)
[2023-06-26 09:34] LABS: BASO % 0.4 % (0-2.0); EOS % 2.5 % (0-4.5); HEMATOCRIT 41.9 % (35.4-49); HEMOGLOBIN 14.6 GM/dL (11.7-16.9); LYMPH % 25.4 % (8-40); MCH 32.4 pg (25.7-33.7); MCHC 34.7 g/dl (32.0-35.9); MEAN CELL VOLUME 93.4 fl (80-96); MEAN PLT VOLUME 8.2 fl (7.5-11.1); MONO % 11.3 % (3.8-10.2); NEUT % 60.4 % (42.8-82.8); PLATELET COUNT 100 10^3/uL (134-434); RBC 4.49 M/mm3 (4.00-5.60); RDW 12.6 % (11.9-15.9); WHITE BLOOD COUNT 3.9 K/mm3 (4.0-10.0)
[2023-06-26 09:54] LABS: CALCIUM 9.5 mg/dL (8.5-10.1)
[2023-06-26 09:55] LABS: ALBUMIN 3.9 g/dl (3.4-5.0); BLOOD UREA NITROGEN 10.4 mg/dL (7-18)
[2023-06-26 09:58] LABS: CREATININE 0.8 mg/dL (0.55-1.3)
[2023-06-26 09:59] LABS: BILIRUBIN,TOTAL 0.9 mg/dL (0.2-1); TOT PROT 7.3 g/dl (6.4-8.2)
[2023-06-26] MEDS: THIAMINE HCL 100 MG TABLET (FP) PO SCH (09:59)
[2023-06-26] MEDS: MULTIVITAMINS (DAILY MVI) TABLET (FP) PO SCH (09:59)
[2023-06-26] MEDS: LISINOPRIL 5 MG TABLET PO SCH (09:59)
[2023-06-26] MEDS: FOLIC ACID 1 MG TABLET (FP) PO SCH (09:59)
[2023-06-26] MEDS ORDERED: INSULIN (NOVOLOG) ASPART 100 UNITS/ML 10ML VIAL ONE ×3 (12:15→21:47)
[2023-06-26] MEDS: ATORVASTATIN CA 40 MG TABLET (FP) PO SCH (21:41)
[2023-06-27] MEDS: chlordiazePOXIDE HCL 10 MG CAPSULE PO ONE (05:32)
[2023-06-27] MEDS ORDERED: INSULIN (NOVOLOG) ASPART 100 UNITS/ML 10ML VIAL ONE ×4 (06:03→21:48)
[2023-06-27] MEDS: INSULIN SLIDING SCALE (NOVOLOG) 1 VIAL SQ SCH ×4 (06:07→21:50)
[2023-06-27] MEDS: INSULIN (LEVEMIR) 100 UNITS/ML UNITS SQ SCH ×2 (06:08→21:51)
[2023-06-27] MEDS: LISINOPRIL 5 MG TABLET PO SCH (10:18)
[2023-06-27] MEDS: FOLIC ACID 1 MG TABLET (FP) PO SCH (10:18)
[2023-06-27] MEDS: MULTIVITAMINS (DAILY MVI) TABLET (FP) PO SCH (10:18)
[2023-06-27] MEDS: THIAMINE HCL 100 MG TABLET (FP) PO SCH (10:18)
[2023-06-27] MEDS: ATORVASTATIN CA 40 MG TABLET (FP) PO SCH (21:34)
[2023-06-28] MEDS: INSULIN (LEVEMIR) 100 UNITS/ML UNITS SQ SCH ×2 (05:59→21:34)
[2023-06-28] MEDS: INSULIN SLIDING SCALE (NOVOLOG) 1 VIAL SQ SCH ×4 (06:00→21:38)
[2023-06-28 09:14] LABS: BASO % 0.5 % (0-2.0); EOS % 1.8 % (0-4.5); HEMATOCRIT 43.2 % (35.4-49); HEMOGLOBIN 14.6 GM/dL (11.7-16.9); LYMPH % 24.1 % (8-40); MCH 31.8 pg (25.7-33.7); MCHC 33.9 g/dl (32.0-35.9); MEAN PLT VOLUME 8.4 fl (7.5-11.1); MONO % 14.3 % (3.8-10.2); NEUT % 59.3 % (42.8-82.8); PLATELET COUNT 95 10^3/uL (134-434); WHITE BLOOD COUNT 3.5 K/mm3 (4.0-10.0)
[2023-06-28] MEDS: LISINOPRIL 5 MG TABLET PO SCH (10:15)
[2023-06-28] MEDS: MULTIVITAMINS (DAILY MVI) TABLET (FP) PO SCH (10:15)
[2023-06-28] MEDS: THIAMINE HCL 100 MG TABLET (FP) PO SCH (10:15)
[2023-06-28] MEDS: FOLIC ACID 1 MG TABLET (FP) PO SCH (10:15)
[2023-06-28 10:43] LABS: ALBUMIN 3.9 g/dl (3.4-5.0); BILIRUBIN,TOTAL 0.8 mg/dL (0.2-1); BLOOD UREA NITROGEN 13.9 mg/dL (7-18); CALCIUM 9.5 mg/dL (8.5-10.1); CREATININE 0.8 mg/dL (0.55-1.3); POTASSIUM 4.6 mmol/L (3.5-5.1); TOT PROT 7.3 g/dl (6.4-8.2)
[2023-06-28] MEDS ORDERED: LORazepam 1 MG TABLET PO PRN (11:21)
[2023-06-28] MEDS ORDERED: SODIUM CHLORIDE 1,000 ML IV SCH (11:30)
[2023-06-28] MEDS ORDERED: INSULIN (NOVOLOG) ASPART 100 UNITS/ML 10ML VIAL ONE (21:32)
[2023-06-28] MEDS: ATORVASTATIN CA 40 MG TABLET (FP) PO SCH (21:35)
[2023-06-29] MEDS: INSULIN (LEVEMIR) 100 UNITS/ML UNITS SQ SCH ×3 (06:07→21:24)
[2023-06-29] MEDS: INSULIN SLIDING SCALE (NOVOLOG) 1 VIAL SQ SCH ×4 (06:09→21:25)
[2023-06-29] MEDS: FOLIC ACID 1 MG TABLET (FP) PO SCH (10:06)
[2023-06-29] MEDS: THIAMINE HCL 100 MG TABLET (FP) PO SCH (10:06)
[2023-06-29] MEDS: LISINOPRIL 5 MG TABLET PO SCH (10:06)
[2023-06-29] MEDS: MULTIVITAMINS (DAILY MVI) TABLET (FP) PO SCH (10:06)
[2023-06-29] MEDS ORDERED: INSULIN (NOVOLOG) ASPART 100 UNITS/ML 10ML VIAL ONE ×3 (11:34→21:12)
[2023-06-29] MEDS: SODIUM CHLORIDE 1,000 ML IV SCH (12:30)
[2023-06-29] MEDS: ENOXAPARIN NA (PORCINE) 40 MG/0.4 ML DISP.SYRIN SQ SCH (16:35)
[2023-06-29] MEDS: ATORVASTATIN CA 40 MG TABLET (FP) PO SCH (21:26)
[2023-06-30] MEDS ORDERED: INSULIN (NOVOLOG) ASPART 100 UNITS/ML 10ML VIAL ONE ×4 (06:01→22:06)
[2023-06-30] MEDS: INSULIN SLIDING SCALE (NOVOLOG) 1 VIAL SQ SCH ×4 (06:13→22:04)
[2023-06-30 08:49] LABS: POTASSIUM 4.7 mmol/L (3.5-5.1)
[2023-06-30 08:50] LABS: CALCIUM 8.8 mg/dL (8.5-10.1)
[2023-06-30 08:51] LABS: BLOOD UREA NITROGEN 11.4 mg/dL (7-18)
[2023-06-30 08:54] LABS: CREATININE 0.8 mg/dL (0.55-1.3)
[2023-06-30] MEDS: ENOXAPARIN NA (PORCINE) 40 MG/0.4 ML DISP.SYRIN SQ SCH (10:02)
[2023-06-30] MEDS: MULTIVITAMINS (DAILY MVI) TABLET (FP) PO SCH (10:02)
[2023-06-30] MEDS: THIAMINE HCL 100 MG TABLET (FP) PO SCH (10:02)
[2023-06-30] MEDS: INSULIN (LEVEMIR) 100 UNITS/ML UNITS SQ SCH ×2 (10:03→22:08)
[2023-06-30] MEDS: LISINOPRIL 5 MG TABLET PO SCH (10:03)
[2023-06-30] MEDS: FOLIC ACID 1 MG TABLET (FP) PO SCH (10:03)
[2023-06-30] MEDS: SODIUM CHLORIDE 1,000 ML IV SCH (11:33)
[2023-06-30] MEDS ORDERED: INSULIN (LEVEMIR) 100 UNITS/ML UNITS SQ ONE (17:04)
[2023-06-30] MEDS: ATORVASTATIN CA 40 MG TABLET (FP) PO SCH (22:03)
[2023-07-01] MEDS: INSULIN SLIDING SCALE (NOVOLOG) 1 VIAL SQ SCH ×2 (06:52→11:36)
[2023-07-01] MEDS: INSULIN (LEVEMIR) 100 UNITS/ML UNITS SQ SCH (06:52)
[2023-07-01] MEDS: FOLIC ACID 1 MG TABLET (FP) PO SCH (10:19)
[2023-07-01] MEDS: MULTIVITAMINS (DAILY MVI) TABLET (FP) PO SCH (10:19)
[2023-07-01] MEDS: THIAMINE HCL 100 MG TABLET (FP) PO SCH (10:19)
[2023-07-01] MEDS: ENOXAPARIN NA (PORCINE) 40 MG/0.4 ML DISP.SYRIN SQ SCH (10:20)
[2023-07-01] MEDS: LISINOPRIL 5 MG TABLET PO SCH (10:20)
[2023-07-01] MEDS ORDERED: INSULIN (NOVOLOG) ASPART 100 UNITS/ML 10ML VIAL ONE (11:34)
[2023-07-01 12:41] VITALS: BP 130/70; PULSE 80; RESP 16; TEMP 98.4
== END 2023-07-01 13:27 | disposition home or self-care (01) | DRG 775 ==
LOC: JER 23:29 → JERBED 06-22 06:50 → OBSVTOIN 06-22 08:43 → J7W 06-22 10:57
PROVIDERS: ADMIT Internal Medicine; ATTEND Internal Medicine
PROC: HZ2ZZZZ Detoxification Services for Substance Abuse Treatment (ICD-10-PCS; principal; 2023-06-21)
DX: F10.129 Alcohol abuse with intoxication, unspecified (principal); D69.59 Other secondary thrombocytopenia; R07.89 Other chest pain; E78.00 Pure hypercholesterolemia, unspecified; E51.2 Wernicke's encephalopathy; E11.65 Type 2 diabetes mellitus with hyperglycemia; I10 Essential (primary) hypertension; Y90.8 Blood alcohol level of 240 mg/100 ml or more; K57.90 Diverticulosis of intestine, part unspecified, without perforation or abscess without bleeding
CPT/HCPCS: 0241U-QW; 36415; 71275-TC; 74177-TC; 76882-TC-RT-FY; 80048; 80053; 80307; 81003; 82550; 82962; 83036; 83690; 83735; 84439; 84443; 84484; 85025; 85027; 85610; 85730; 86780; 86803; 87086; 93005; 93010; 97116-GP; 97162-GP; 99285-25; G0378

== ENCOUNTER 2023-07-08 20:34 | Inpatient (IN) | payer OTHER ==
[2023-07-08 20:43] VITALS: BMI 28.7
[2023-07-09 02:50] LABS: POTASSIUM 4.4 mmol/L (3.5-5.1)
[2023-07-09 02:53] LABS: BLOOD UREA NITROGEN 12.6 mg/dL (7-18)
[2023-07-09 02:55] LABS: BASO % 0.5 % (0-2.0); EOS % 1.8 % (0-4.5); HEMATOCRIT 43.4 % (35.4-49); HEMOGLOBIN 14.9 GM/dL (11.7-16.9); LYMPH % 40.4 % (8-40); MCH 31.3 pg (25.7-33.7); MCHC 34.3 g/dl (32.0-35.9); MEAN CELL VOLUME 91.3 fl (80-96); MEAN PLT VOLUME 7.4 fl (7.5-11.1); MONO % 7.9 % (3.8-10.2); NEUT % 49.4 % (42.8-82.8); PLATELET COUNT 235 10^3/uL (134-434); RBC 4.75 M/mm3 (4.00-5.60); RDW 12.5 % (11.9-15.9); WHITE BLOOD COUNT 5.3 K/mm3 (4.0-10.0)
[2023-07-09 02:57] LABS: CREATININE 0.7 mg/dL (0.55-1.3); TOT PROT 7.6 g/dl (6.4-8.2)
[2023-07-09 03:05] LABS: BILIRUBIN,TOTAL 0.5 mg/dL (0.2-1); CALCIUM 8.9 mg/dL (8.5-10.1)
[2023-07-09] MEDS ORDERED: THIAMINE HCL 200 MG/2 ML VIAL IVPB ONE (07:01)
[2023-07-09] MEDS ORDERED: THIAMINE HCL 200 MG/2 ML VIAL ONE (07:31)
[2023-07-09] MEDS ORDERED: THIAMINE HCL 100 MG TABLET (FP) ONE (09:52)
[2023-07-09] MEDS ORDERED: ENOXAPARIN NA (PORCINE) 40 MG/0.4 ML DISP.SYRIN SQ ONE (09:53)
[2023-07-09] MEDS ORDERED: ATORVASTATIN CA 80 MG TABLET (FP) ONE (09:53)
[2023-07-09] MEDS ORDERED: FOLIC ACID 1 MG TABLET (FP) ONE (09:53)
[2023-07-09] MEDS ORDERED: ASPIRIN 81 MG CHEWABLE TABLETS ONE (09:53)
[2023-07-09] MEDS: ENOXAPARIN NA (PORCINE) 40 MG/0.4 ML DISP.SYRIN SQ SCH (09:57)
[2023-07-09] MEDS: FOLIC ACID 1 MG TABLET (FP) PO SCH (09:57)
[2023-07-09] MEDS: ATORVASTATIN CA 80 MG TABLET (FP) PO SCH (09:57)
[2023-07-09] MEDS: ASPIRIN 81 MG CHEWABLE TABLETS PO SCH (09:57)
[2023-07-09] MEDS: THIAMINE HCL 100 MG TABLET (FP) PO SCH (09:58)
[2023-07-09] MEDS: INSULIN SLIDING SCALE (NOVOLOG) 1 VIAL SQ SCH ×3 (12:03→21:39)
[2023-07-09] MEDS ORDERED: INSULIN (NOVOLOG) ASPART 100 UNITS/ML 10ML VIAL ONE (21:47)
[2023-07-09] MEDS ORDERED: MECLIZINE HCL 25 MG TABLET (FP) PO ONE (22:23)
[2023-07-09] MEDS ORDERED: MECLIZINE HCL 25 MG TABLET (FP) ONE (22:58)
[2023-07-10] MEDS: INSULIN SLIDING SCALE (NOVOLOG) 1 VIAL SQ SCH ×4 (05:59→22:08)
[2023-07-10] MEDS ORDERED: INSULIN (NOVOLOG) ASPART 100 UNITS/ML 10ML VIAL ONE ×2 (06:20→22:06)
[2023-07-10 08:13] LABS: POTASSIUM 4.5 mmol/L (3.5-5.1)
[2023-07-10 08:14] LABS: CALCIUM 9.2 mg/dL (8.5-10.1)
[2023-07-10 08:16] LABS: BLOOD UREA NITROGEN 18.8 mg/dL (7-18)
[2023-07-10 08:17] LABS: ALBUMIN 3.6 g/dl (3.4-5.0)
[2023-07-10 08:18] LABS: CREATININE 0.9 mg/dL (0.55-1.3)
[2023-07-10 08:20] LABS: BILIRUBIN,TOTAL 0.8 mg/dL (0.2-1); PHOSPHOROUS 3.3 mg/dL (2.5-4.9); TOT PROT 6.8 g/dl (6.4-8.2)
[2023-07-10 08:25] LABS: BASO % 0.5 % (0-2.0); EOS % 1.7 % (0-4.5); HEMATOCRIT 39.7 % (35.4-49); HEMOGLOBIN 13.6 GM/dL (11.7-16.9); LYMPH % 39.4 % (8-40); MCH 31.8 pg (25.7-33.7); MCHC 34.4 g/dl (32.0-35.9); MEAN CELL VOLUME 92.4 fl (80-96); MEAN PLT VOLUME 7.9 fl (7.5-11.1); MONO % 12.8 % (3.8-10.2); NEUT % 45.6 % (42.8-82.8); PLATELET COUNT 178 10^3/uL (134-434); RBC 4.29 M/mm3 (4.00-5.60); RDW 12.2 % (11.9-15.9); WHITE BLOOD COUNT 4.5 K/mm3 (4.0-10.0)
[2023-07-10] MEDS: THIAMINE HCL 100 MG TABLET (FP) PO SCH (09:15)
[2023-07-10] MEDS: ATORVASTATIN CA 80 MG TABLET (FP) PO SCH (09:15)
[2023-07-10] MEDS: FOLIC ACID 1 MG TABLET (FP) PO SCH (09:15)
[2023-07-10] MEDS: ASPIRIN 81 MG CHEWABLE TABLETS PO SCH (09:15)
[2023-07-10] MEDS: ENOXAPARIN NA (PORCINE) 40 MG/0.4 ML DISP.SYRIN SQ SCH (09:15)
[2023-07-11] MEDS: INSULIN SLIDING SCALE (NOVOLOG) 1 VIAL SQ SCH ×4 (06:19→22:09)
[2023-07-11 07:46] LABS: BASO % 0.6 % (0-2.0); EOS % 2.2 % (0-4.5); HEMATOCRIT 38.1 % (35.4-49); HEMOGLOBIN 13.5 GM/dL (11.7-16.9); LYMPH % 40.8 % (8-40); MCH 32.3 pg (25.7-33.7); MCHC 35.5 g/dl (32.0-35.9); MEAN CELL VOLUME 91.2 fl (80-96); MEAN PLT VOLUME 7.8 fl (7.5-11.1); NEUT % 45.4 % (42.8-82.8); PLATELET COUNT 161 10^3/uL (134-434); RBC 4.17 M/mm3 (4.00-5.60); RDW 12.5 % (11.9-15.9)
[2023-07-11 07:47] LABS: POTASSIUM 4.4 mmol/L (3.5-5.1)
[2023-07-11 07:50] LABS: CALCIUM 9.3 mg/dL (8.5-10.1)
[2023-07-11 07:51] LABS: ALBUMIN 3.5 g/dl (3.4-5.0); BLOOD UREA NITROGEN 15.8 mg/dL (7-18); MAGNESIUM 1.8 mg/dL (1.8-2.4)
[2023-07-11 07:54] LABS: CREATININE 0.8 mg/dL (0.55-1.3); PHOSPHOROUS 3.5 mg/dL (2.5-4.9)
[2023-07-11 07:55] LABS: TOT PROT 6.7 g/dl (6.4-8.2)
[2023-07-11 08:34] LABS: BILIRUBIN,TOTAL 0.6 mg/dL (0.2-1)
[2023-07-11] MEDS: THIAMINE HCL 100 MG TABLET (FP) PO SCH (10:20)
[2023-07-11] MEDS: ENOXAPARIN NA (PORCINE) 40 MG/0.4 ML DISP.SYRIN SQ SCH (10:20)
[2023-07-11] MEDS: FOLIC ACID 1 MG TABLET (FP) PO SCH (10:20)
[2023-07-11] MEDS: ASPIRIN 81 MG CHEWABLE TABLETS PO SCH (10:20)
[2023-07-11] MEDS: ATORVASTATIN CA 80 MG TABLET (FP) PO SCH (10:20)
[2023-07-11 19:01] VITALS: RESP 18
[2023-07-11] MEDS: INSULIN (LEVEMIR) 100 UNITS/ML UNITS SQ SCH (22:16)
[2023-07-12] MEDS: INSULIN SLIDING SCALE (NOVOLOG) 1 VIAL SQ SCH ×4 (06:36→21:32)
[2023-07-12 08:35] LABS: BASO % 0.3 % (0-2.0); EOS % 2.5 % (0-4.5); HEMATOCRIT 40.4 % (35.4-49); LYMPH % 38.7 % (8-40); MCH 31.8 pg (25.7-33.7); MCHC 34.6 g/dl (32.0-35.9); MEAN CELL VOLUME 91.8 fl (80-96); MEAN PLT VOLUME 8.2 fl (7.5-11.1); MONO % 11.4 % (3.8-10.2); NEUT % 47.1 % (42.8-82.8); PLATELET COUNT 162 10^3/uL (134-434); RDW 12.4 % (11.9-15.9); WHITE BLOOD COUNT 4.3 K/mm3 (4.0-10.0)
[2023-07-12 09:01] LABS: POTASSIUM 4.7 mmol/L (3.5-5.1)
[2023-07-12 09:17] LABS: CALCIUM 9.8 mg/dL (8.5-10.1)
[2023-07-12 09:18] LABS: ALBUMIN 3.7 g/dl (3.4-5.0); BLOOD UREA NITROGEN 12.7 mg/dL (7-18); MAGNESIUM 2.1 mg/dL (1.8-2.4)
[2023-07-12 09:20] LABS: PHOSPHOROUS 3.8 mg/dL (2.5-4.9)
[2023-07-12 09:21] LABS: CREATININE 0.7 mg/dL (0.55-1.3)
[2023-07-12 09:22] LABS: BILIRUBIN,TOTAL 0.7 mg/dL (0.2-1); TOT PROT 6.8 g/dl (6.4-8.2)
[2023-07-12] MEDS: FOLIC ACID 1 MG TABLET (FP) PO SCH (09:42)
[2023-07-12] MEDS: ASPIRIN 81 MG CHEWABLE TABLETS PO SCH (09:42)
[2023-07-12] MEDS: THIAMINE HCL 100 MG TABLET (FP) PO SCH (09:42)
[2023-07-12] MEDS: ATORVASTATIN CA 80 MG TABLET (FP) PO SCH (09:42)
[2023-07-12] MEDS: ENOXAPARIN NA (PORCINE) 40 MG/0.4 ML DISP.SYRIN SQ SCH (09:42)
[2023-07-12] MEDS: INSULIN (LEVEMIR) 100 UNITS/ML UNITS SQ SCH (21:31)
[2023-07-13] MEDS: INSULIN SLIDING SCALE (NOVOLOG) 1 VIAL SQ SCH ×4 (06:34→21:45)
[2023-07-13 07:41] LABS: POTASSIUM 4.2 mmol/L (3.5-5.1)
[2023-07-13 07:52] LABS: BLOOD UREA NITROGEN 13.6 mg/dL (7-18); CALCIUM 9.3 mg/dL (8.5-10.1)
[2023-07-13 07:56] LABS: CREATININE 0.8 mg/dL (0.55-1.3)
[2023-07-13 07:58] LABS: BASO % 0.5 % (0-2.0); EOS % 2.5 % (0-4.5); HEMOGLOBIN 14.1 GM/dL (11.7-16.9); LYMPH % 36.3 % (8-40); MCH 31.5 pg (25.7-33.7); MCHC 34.4 g/dl (32.0-35.9); MEAN CELL VOLUME 91.7 fl (80-96); MEAN PLT VOLUME 8.3 fl (7.5-11.1); MONO % 11.1 % (3.8-10.2); NEUT % 49.6 % (42.8-82.8); PLATELET COUNT 161 10^3/uL (134-434); RBC 4.47 M/mm3 (4.00-5.60); RDW 12.1 % (11.9-15.9); WHITE BLOOD COUNT 4.4 K/mm3 (4.0-10.0)
[2023-07-13] MEDS: ASPIRIN 81 MG CHEWABLE TABLETS PO SCH (09:10)
[2023-07-13] MEDS: ENOXAPARIN NA (PORCINE) 40 MG/0.4 ML DISP.SYRIN SQ SCH (09:10)
[2023-07-13] MEDS: ATORVASTATIN CA 80 MG TABLET (FP) PO SCH (09:10)
[2023-07-13] MEDS: FOLIC ACID 1 MG TABLET (FP) PO SCH (09:10)
[2023-07-13] MEDS: THIAMINE HCL 100 MG TABLET (FP) PO SCH (09:10)
[2023-07-13] MEDS ORDERED: INSULIN (NOVOLOG) ASPART 100 UNITS/ML 10ML VIAL ONE (21:44)
[2023-07-13] MEDS: INSULIN (LEVEMIR) 100 UNITS/ML UNITS SQ SCH (21:45)
[2023-07-14] MEDS ORDERED: INSULIN (NOVOLOG) ASPART 100 UNITS/ML 10ML VIAL ONE (06:14)
[2023-07-14] MEDS: INSULIN (LEVEMIR) 100 UNITS/ML UNITS SQ SCH (06:17)
[2023-07-14] MEDS: INSULIN SLIDING SCALE (NOVOLOG) 1 VIAL SQ SCH ×2 (06:17→11:46)
[2023-07-14] MEDS ORDERED: INSULIN (LEVEMIR) 100 UNITS/ML UNITS SQ SCH (07:00)
[2023-07-14 07:17] LABS: POTASSIUM 4.4 mmol/L (3.5-5.1)
[2023-07-14 07:18] LABS: BASO % 0.4 % (0-2.0); EOS % 2.6 % (0-4.5); HEMATOCRIT 41.2 % (35.4-49); HEMOGLOBIN 14.1 GM/dL (11.7-16.9); LYMPH % 37.5 % (8-40); MCH 31.2 pg (25.7-33.7); MCHC 34.1 g/dl (32.0-35.9); MEAN CELL VOLUME 91.4 fl (80-96); MEAN PLT VOLUME 8.3 fl (7.5-11.1); MONO % 10.9 % (3.8-10.2); NEUT % 48.6 % (42.8-82.8); PLATELET COUNT 173 10^3/uL (134-434); RBC 4.51 M/mm3 (4.00-5.60); RDW 12.5 % (11.9-15.9); WHITE BLOOD COUNT 4.7 K/mm3 (4.0-10.0)
[2023-07-14 07:19] LABS: CALCIUM 9.2 mg/dL (8.5-10.1)
[2023-07-14 07:20] LABS: ALBUMIN 3.7 g/dl (3.4-5.0); BLOOD UREA NITROGEN 11.8 mg/dL (7-18); MAGNESIUM 1.9 mg/dL (1.8-2.4)
[2023-07-14 07:23] LABS: CREATININE 0.8 mg/dL (0.55-1.3); PHOSPHOROUS 4.1 mg/dL (2.5-4.9)
[2023-07-14 07:24] LABS: BILIRUBIN,TOTAL 0.6 mg/dL (0.2-1); TOT PROT 6.8 g/dl (6.4-8.2)
[2023-07-14] MEDS ORDERED: LISINOPRIL 5 MG TABLET PO SCH (10:00)
[2023-07-14] MEDS: THIAMINE HCL 100 MG TABLET (FP) PO SCH (10:38)
[2023-07-14] MEDS: ATORVASTATIN CA 80 MG TABLET (FP) PO SCH (10:38)
[2023-07-14] MEDS: ENOXAPARIN NA (PORCINE) 40 MG/0.4 ML DISP.SYRIN SQ SCH (10:38)
[2023-07-14] MEDS: FOLIC ACID 1 MG TABLET (FP) PO SCH (10:38)
[2023-07-14] MEDS: ASPIRIN 81 MG CHEWABLE TABLETS PO SCH (10:38)
[2023-07-14 15:01] VITALS: BP 109/53; PULSE 67; TEMP 98.4
== END 2023-07-14 15:07 | disposition home or self-care (01) | DRG 775 ==
LOC: JER 20:34 → JERBED 07-09 06:09 → J4W 07-11 01:26 → OBSVTOIN 07-12 11:16
PROVIDERS: ADMIT Family Medicine; ATTEND Internal Medicine
PROC: HZ2ZZZZ Detoxification Services for Substance Abuse Treatment (ICD-10-PCS; principal; 2023-07-12)
DX: F10.239 Alcohol dependence with withdrawal, unspecified (principal); E11.65 Type 2 diabetes mellitus with hyperglycemia; I10 Essential (primary) hypertension; E78.5 Hyperlipidemia, unspecified; R53.1 Weakness
CPT/HCPCS: 36415; 70450-TC; 70496-TC; 70498-TC; 70544-TC; 70551-TC; 70552-TC; 74018-TC-FY; 80048; 80053; 80061; 80307; 82607; 82746; 82962; 83036; 83735; 84100; 84484; 85025; 86618; 86780; 97116-GP; 97162-GP; 99285-25; G0378; Q9967

== ENCOUNTER 2023-08-04 17:45 | Emergency (ER) | payer OTHER ==
[2023-08-04 18:04] VITALS: TEMP 98.2; BMI 29.9
[2023-08-04] MEDS ORDERED: SODIUM CHLORIDE 1,000 ML IV STA (18:59)
[2023-08-04] MEDS ORDERED: ONDANSETRON 4 MG/2 ML VIAL IVPUSH ONE (20:28)
[2023-08-04] MEDS ORDERED: ACETAMINOPHEN 1000 MG/100 ML BAG IVPB ONE (20:28)
[2023-08-04] MEDS ORDERED: FAMOTIDINE 20 MG/50 ML IVPB 20 MG/50 ML MG IVPB ONE (20:28)
[2023-08-04] MEDS ORDERED: ONDANSETRON 4 MG/2 ML VIAL ONE (20:57)
[2023-08-04] MEDS ORDERED: ACETAMINOPHEN INJECTION 100 ML IVPB ONE (20:57)
[2023-08-04] MEDS ORDERED: FAMOTIDINE 10 MG/ML VIAL IVPB ONE (20:59)
[2023-08-04 21:53] LABS: BASO % 0.2 % (0-2.0); EOS % 1.5 % (0-4.5); HEMATOCRIT 42.7 % (35.4-49); HEMOGLOBIN 14.9 GM/dL (11.7-16.9); LYMPH % 32.8 % (8-40); MCH 31.1 pg (25.7-33.7); MCHC 34.8 g/dl (32.0-35.9); MEAN CELL VOLUME 89.3 fl (80-96); MEAN PLT VOLUME 7.9 fl (7.5-11.1); MONO % 12.6 % (3.8-10.2); NEUT % 52.9 % (42.8-82.8); PLATELET COUNT 160 10^3/uL (134-434); RBC 4.79 M/mm3 (4.00-5.60); RDW 12.6 % (11.9-15.9); WHITE BLOOD COUNT 5.3 K/mm3 (4.0-10.0)
[2023-08-04 22:05] LABS: URINE APPEARANCE CLEAR; URINE BILIRUBIN NEGATIVE (NEGATIVE); URINE COLOR YELLOW; URINE GLUCOSE (UA) NEGATIVE (NEGATIVE); URINE KETONE 1+ (NEGATIVE); URINE LEUK ESTERASE NEGATIVE (NEGATIVE); URINE NITRITE NEGATIVE (NEGATIVE); URINE PROTEIN NEGATIVE (NEGATIVE); URINE UROBILINOGEN 0.2 mg/dL (0.2-1.0)
[2023-08-04 22:05] LABS: INR 1.05 (0.83-1.09); PROTHROMBIN TIME (PATIENT) 12.2 SEC (9.7-13.0)
[2023-08-04 22:08] LABS: ACTIVATED PTT 30.7 SECONDS (25.2-36.5)
[2023-08-04 22:11] LABS: VENOUS BASE EXCESS 1.8 mmol/L (-2-2); VENOUS O2 SATURATION 48.4 % (70-80); VENOUS PCO2 52.7 mmHg (38-52); VENOUS PH 7.35 (7.310-7.410)
[2023-08-04 22:14] LABS: POTASSIUM 4.4 mmol/L (3.5-5.1)
[2023-08-04 22:16] LABS: CALCIUM 9.6 mg/dL (8.5-10.1)
[2023-08-04 22:17] LABS: ALBUMIN 4.1 g/dl (3.4-5.0); BLOOD UREA NITROGEN 12.1 mg/dL (7-18)
[2023-08-04 22:20] LABS: CREATININE 0.8 mg/dL (0.55-1.3)
[2023-08-04 22:21] LABS: BILIRUBIN,TOTAL 0.4 mg/dL (0.2-1)
[2023-08-05 01:56] VITALS: RESP 16
[2023-08-05] MEDS ORDERED: PANTOPRAZOLE SODIUM 40 MG VIAL IVPUSH ONE (02:31)
[2023-08-05] MEDS ORDERED: PANTOPRAZOLE SODIUM 40 MG VIAL ONE (02:38)
[2023-08-05 06:18] VITALS: BP 109/74; PULSE 88
== END 2023-08-05 06:19 | disposition home or self-care (01) ==
LOC: JER 17:45
PROC: 3E033GC Introduction of Other Therapeutic Substance into Peripheral Vein, Percutaneous Approach (ICD-10-PCS; principal; 2023-08-04)
PROC: 3E033NZ Introduction of Analgesics, Hypnotics, Sedatives into Peripheral Vein, Percutaneous Approach (ICD-10-PCS; 2023-08-04)
PROC: 3E033GC Introduction of Other Therapeutic Substance into Peripheral Vein, Percutaneous Approach (ICD-10-PCS; 2023-08-04)
PROC: 3E0337Z Introduction of Electrolytic and Water Balance Substance into Peripheral Vein, Percutaneous Approach (ICD-10-PCS; 2023-08-04)
PROC: 3E033GC Introduction of Other Therapeutic Substance into Peripheral Vein, Percutaneous Approach (ICD-10-PCS; 2023-08-05)
DX: R10.32 Left lower quadrant pain (principal); R50.9 Fever, unspecified; R19.7 Diarrhea, unspecified; R11.2 Nausea with vomiting, unspecified; U07.1 COVID-19
CPT/HCPCS: 0241U-QW; 36415; 74177-TC; 80053; 81003; 82010; 82803; 83605; 83690; 84484; 85025; 85610; 85730; 86850; 86900; 86901; 87086; 87186; 93005; 93010; 99285-25

== ENCOUNTER 2023-08-05 21:21 | Emergency (ER) | payer OTHER ==
[2023-08-05 21:39] VITALS: BMI 29.9
[2023-08-05] MEDS ORDERED: ONDANSETRON 4 MG/2 ML VIAL IVPUSH ONE (22:00)
[2023-08-05] MEDS ORDERED: SODIUM CHLORIDE 1,000 ML IV ONE (22:00)
[2023-08-05] MEDS ORDERED: MECLIZINE HCL 25 MG TABLET (FP) PO ONE (22:00)
[2023-08-05 22:01] VITALS: BP 139/92; PULSE 91; RESP 18; TEMP 99.2
[2023-08-05] MEDS ORDERED: MECLIZINE HCL 25 MG TABLET (FP) ONE (22:02)
[2023-08-05] MEDS ORDERED: ONDANSETRON 4 MG/2 ML VIAL ONE (22:02)
[2023-08-05 22:04] LABS: HEMATOCRIT 39.5 % (35.4-49); MCH 31.9 pg (25.7-33.7); MCHC 35.5 g/dl (32.0-35.9); MEAN PLT VOLUME 8.2 fl (7.5-11.1); PLATELET COUNT 135.7 10^3/uL (134-434); RBC 4.39 10^6/uL (4.00-5.60); RDW 12.7 % (11.9-15.9); WHITE BLOOD COUNT 3.8 10^3/uL (4.0-10.8)
[2023-08-05 22:18] LABS: ALBUMIN 4.4 g/dl (3.4-5.0); BILIRUBIN,TOTAL 0.4 mg/dl (0.2-1); CALCIUM 9.4 mg/dl (8.5-10.1); CREATININE 0.8 mg/dl (0.6-1.3); POTASSIUM 4.3 mmol/L (3.5-5.1); TOT PROT 6.7 g/dl (6.4-8.2)
[2023-08-05] MEDS ORDERED: INSULIN REGULAR HUMAN 100 UNITS/ML *VIAL IVPUSH ONE (22:30)
[2023-08-05] MEDS ORDERED: INSULIN REGULAR HUMAN 100 UNITS/ML *VIAL ONE (22:32)
== END 2023-08-05 22:52 | disposition home or self-care (01) ==
LOC: FER 21:21
PROC: 3E033GC Introduction of Other Therapeutic Substance into Peripheral Vein, Percutaneous Approach (ICD-10-PCS; principal; 2023-08-05)
PROC: 3E033GC Introduction of Other Therapeutic Substance into Peripheral Vein, Percutaneous Approach (ICD-10-PCS; 2023-08-05)
PROC: 3E0337Z Introduction of Electrolytic and Water Balance Substance into Peripheral Vein, Percutaneous Approach (ICD-10-PCS; 2023-08-05)
DX: R42 Dizziness and giddiness (principal); R20.0 Anesthesia of skin
CPT/HCPCS: 36415; 80053; 85027; 99284-25

== ENCOUNTER 2023-08-05 23:20 | Emergency (ER) | payer OTHER ==
[2023-08-05 23:26] VITALS: BMI 29.9
[2023-08-06] MEDS ORDERED: LORazepam 2 MG TABLET PO ONE (01:28)
[2023-08-06] MEDS ORDERED: LORazepam 1 MG TABLET ONE (01:48)
[2023-08-06 06:27] VITALS: BP 128/80; PULSE 80; RESP 15; TEMP 98.1
== END 2023-08-06 06:52 | disposition home or self-care (01) ==
LOC: JER 23:20
DX: R42 Dizziness and giddiness (principal); R53.1 Weakness; R10.9 Unspecified abdominal pain
CPT/HCPCS: 99283-25

== ENCOUNTER 2023-09-27 12:17 | Inpatient (IN) | payer OTHER ==
[2023-09-27 14:04] LABS: HEMATOCRIT 43.4 % (35.4-49); HEMOGLOBIN 14.7 G/dL (11.7-16.9); MCH 29.8 pg (25.7-33.7); MCHC 33.8 g/dl (32.0-35.9); MEAN CELL VOLUME 88.1 fl (80-96); PLATELET COUNT 128.6 10^3/uL (134-434); RBC 4.93 10^6/uL (4.00-5.60); RDW 13.6 % (11.9-15.9); WHITE BLOOD COUNT 5.9 10^3/uL (4.0-10.8)
[2023-09-27 14:20] LABS: ALBUMIN 4.6 g/dl (3.4-5.0); BILIRUBIN,TOTAL 0.5 mg/dl (0.2-1); CALCIUM 9.8 mg/dl (8.5-10.1); CREATININE 0.7 mg/dl (0.6-1.3); POTASSIUM 4.5 mmol/L (3.5-5.1); TOT PROT 7.3 g/dl (6.4-8.2)
[2023-09-27] MEDS: ACETAMINOPHEN 1000 MG/100 ML BAG IVPB ONE (16:38)
[2023-09-27] MEDS ORDERED: ACETAMINOPHEN INJECTION 100 ML IVPB ONE (16:41)
[2023-09-27] MEDS ORDERED: VANCOMYCIN/WATER 1250 MG 1,250 MG/250 ML BAG IVPB ONE (17:01)
[2023-09-27] MEDS ORDERED: VANCOMYCIN 1,000 MG VIAL (RESTRICTED TO ID ONLY) ONE (17:39)
[2023-09-27] MEDS: VANCOMYCIN 1,000 MG in DEXTROSE 5%-WATER - 250 ML IVPB ONE (17:46)
[2023-09-27] MEDS ORDERED: IBUPROFEN 400 MG TABLET (FP) PO ONE (19:05)
[2023-09-27] MEDS: IBUPROFEN 400 MG TABLET (FP) PO ONE (19:16)
[2023-09-27] MEDS: ACYCLOVIR INJECTION 1,000 MG in DEXTROSE 5%-WATER - 100 ML IVPB ONE (20:23)
[2023-09-27] MEDS ORDERED: DOCUSATE SODIUM 100 MG CAPSULE (FP) PO PRN (20:36)
[2023-09-27] MEDS ORDERED: INSULIN ASPART SLIDING SCALE (NOVOLOG) 1 VIAL SQ ONE (22:13)
[2023-09-27] MEDS: INSULIN ASPART SLIDING SCALE (NOVOLOG) 1 VIAL SQ SCH (22:19)
[2023-09-27] MEDS: SODIUM CHLORIDE 1,000 ML IV SCH (22:31)
[2023-09-27] MEDS ORDERED: ACETAMINOPHEN 1000 MG/100 ML BAG IVPB PRN (22:38)
[2023-09-28 00:24] VITALS: BMI 30.5
[2023-09-28] MEDS ORDERED: ACYCLOVIR 1000 MG (50MG/ML) VIAL IVPB SCH (02:00)
[2023-09-28] MEDS: Acyclovir Sodium 1,000 MG in DEXTROSE 5%-WATER - 250 ML IVPB SCH (03:36)
[2023-09-28] MEDS: VANCOMYCIN PREMIX 1.5 GM 1,500 MG/300 ML BAG IVPB SCH (05:34)
[2023-09-28] MEDS ORDERED: VANCOMYCIN HCL 1,500 MG in DEXTROSE 5%-WATER - 250 ML IVPB SCH (06:00)
[2023-09-28] MEDS ORDERED: INSULIN ASPART SLIDING SCALE (NOVOLOG) 1 VIAL SQ ONE (06:38)
[2023-09-28 08:33] LABS: INR 0.99 (0.83-1.09); PROTHROMBIN TIME (PATIENT) 11.5 SEC (9.7-13.0)
[2023-09-28 08:36] LABS: ACTIVATED PTT 26.4 SECONDS (25.2-36.5)
[2023-09-28 09:16] LABS: CREATININE 0.6 mg/dl (0.6-1.3); MAGNESIUM 1.8 mg/dL (1.8-2.4); POTASSIUM 4.2 mmol/L (3.5-5.1)
[2023-09-28 09:55] LABS: BASO % 0.3 % (0-2.0); EOS % 2.9 % (0-4.5); HEMOGLOBIN 13.5 GM/dL (11.7-16.9); LYMPH % 27.9 % (8-40); MCH 30.2 pg (25.7-33.7); MCHC 34.5 g/dl (32.0-35.9); MEAN CELL VOLUME 87.3 fl (80-96); MEAN PLT VOLUME 7.9 fl (7.5-11.1); MONO % 8.6 % (3.8-10.2); NEUT % 60.3 % (42.8-82.8); PLATELET COUNT 111 10^3/uL (134-434); RBC 4.46 M/mm3 (4.00-5.60); RDW 13.5 % (11.9-15.9)
[2023-09-28] MEDS: LISINOPRIL 5 MG TABLET PO SCH (10:17)
[2023-09-28] MEDS: ACETAMINOPHEN 1000 MG/100 ML BAG IVPB PRN (10:17)
[2023-09-28] MEDS: GABAPENTIN 100 MG CAPSULE PO SCH (10:17)
[2023-09-28] MEDS ORDERED: PIPERACILLIN/TAZOB 3.375 GM 3.375 GM in DEXTROSE 5%-WATER - 50 ML IVPB SCH (18:00)
[2023-09-28] MEDS: INSULIN (LEVEMIR) 100 UNITS/ML UNITS SQ SCH (21:23)
[2023-09-28] MEDS: AZTREONAM 1 GM in DEXTROSE 5%-WATER - 50 ML IVPB SCH (21:24)
[2023-09-28] MEDS: ATORVASTATIN CA 40 MG TABLET (FP) PO SCH (21:24)
[2023-09-28] MEDS ORDERED: ACETAMINOPHEN 325 MG TABLET (FP) PO PRN ×2 (22:38)
[2023-09-29] MEDS: KETOROLAC TROMETHAMINE 15 MG/ML VIAL IVPUSH ONE (00:56)
[2023-09-29 05:35] LABS: HEMATOCRIT 37.9 % (35.4-49); HEMOGLOBIN 12.9 GM/dL (11.7-16.9); MCH 29.8 pg (25.7-33.7); MCHC 34.2 g/dl (32.0-35.9); MEAN CELL VOLUME 87.3 fl (80-96); MEAN PLT VOLUME 7.9 fl (7.5-11.1); PLATELET COUNT 107 10^3/uL (134-434); RBC 4.34 M/mm3 (4.00-5.60); RDW 13.3 % (11.9-15.9); WHITE BLOOD COUNT 4.6 K/mm3 (4.0-10.0)
[2023-09-29 05:50] LABS: CALCIUM 8.7 mg/dL (8.5-10.1)
[2023-09-29 05:53] LABS: CREATININE 0.6 mg/dL (0.55-1.3); PHOSPHOROUS 3.6 mg/dL (2.5-4.9)
[2023-09-29 05:55] LABS: BILIRUBIN,TOTAL 0.5 mg/dL (0.2-1)
[2023-09-29] MEDS: VANCOMYCIN PREMIX 1.5 GM 1,500 MG/300 ML BAG IVPB SCH (09:44)
[2023-09-29] MEDS: ENOXAPARIN NA (PORCINE) 40 MG/0.4 ML DISP.SYRIN SQ SCH (09:45)
[2023-09-29] MEDS: IBUPROFEN 600 MG TABLET (FP) PO SCH (10:02)
[2023-09-29] MEDS: SODIUM CHLORIDE 1,000 ML IV SCH (14:17)
[2023-09-29] MEDS: INSULIN (LEVEMIR) 100 UNITS/ML UNITS SQ SCH (21:11)
[2023-09-30] MEDS ORDERED: INSULIN ASPART SLIDING SCALE (NOVOLOG) 1 VIAL SQ ONE ×2 (06:27→11:31)
[2023-09-30 08:02] LABS: HEMATOCRIT 40.6 % (35.4-49); HEMOGLOBIN 13.3 G/dL (11.7-16.9); MCH 29.3 pg (25.7-33.7); MCHC 32.7 g/dl (32.0-35.9); MEAN CELL VOLUME 89.7 fl (80-96); MEAN PLT VOLUME 8.4 fl (7.5-11.1); PLATELET COUNT 94.8 10^3/uL (134-434); RBC 4.53 10^6/uL (4.00-5.60); RDW 13.9 % (11.9-15.9); WHITE BLOOD COUNT 3.4 10^3/uL (4.0-10.8)
[2023-09-30 08:48] LABS: ALBUMIN 3.7 g/dl (3.4-5.0); BILIRUBIN,TOTAL 0.5 mg/dl (0.2-1); CREATININE 0.7 mg/dl (0.6-1.3); POTASSIUM 4.3 mmol/L (3.5-5.1); TOT PROT 5.6 g/dl (6.4-8.2)
[2023-09-30] MEDS: LACTOBACILLUS ACIDOPHILUS 1 TABLET PO SCH (09:46)
[2023-09-30] MEDS: INSULIN ASPART SLIDING SCALE (NOVOLOG) 1 VIAL SQ SCH (11:36)
[2023-10-01 08:08] LABS: HEMATOCRIT 41.4 % (35.4-49); HEMOGLOBIN 13.5 G/dL (11.7-16.9); MCH 29.2 pg (25.7-33.7); MCHC 32.7 g/dl (32.0-35.9); MEAN CELL VOLUME 89.3 fl (80-96); MEAN PLT VOLUME 8.4 fl (7.5-11.1); PLATELET COUNT 112.9 10^3/uL (134-434); RBC 4.64 10^6/uL (4.00-5.60); WHITE BLOOD COUNT 4.7 10^3/uL (4.0-10.8)
[2023-10-01 08:42] LABS: CALCIUM 9.1 mg/dl (8.5-10.1); CREATININE 0.7 mg/dl (0.6-1.3); POTASSIUM 4.3 mmol/L (3.5-5.1)
[2023-10-01] MEDS: INSULIN (LEVEMIR) 100 UNITS/ML UNITS SQ SCH (21:31)
[2023-10-02 10:06] LABS: HEMATOCRIT 41.3 % (35.4-49); HEMOGLOBIN 13.8 G/dL (11.7-16.9); MCHC 33.5 g/dl (32.0-35.9); MEAN CELL VOLUME 89.5 fl (80-96); MEAN PLT VOLUME 8.2 fl (7.5-11.1); PLATELET COUNT 110.8 10^3/uL (134-434); RBC 4.61 10^6/uL (4.00-5.60); RDW 14.5 % (11.9-15.9); WHITE BLOOD COUNT 4.3 10^3/uL (4.0-10.8)
[2023-10-02 10:30] LABS: BILIRUBIN,TOTAL 0.5 mg/dl (0.2-1); CALCIUM 9.3 mg/dl (8.5-10.1); CREATININE 0.7 mg/dl (0.6-1.3); POTASSIUM 3.9 mmol/L (3.5-5.1)
[2023-10-03 09:05] LABS: HEMATOCRIT 40.5 % (35.4-49); HEMOGLOBIN 13.1 G/dL (11.7-16.9); MCHC 32.4 g/dl (32.0-35.9); MEAN CELL VOLUME 89.7 fl (80-96); MEAN PLT VOLUME 8.3 fl (7.5-11.1); PLATELET COUNT 109.5 10^3/uL (134-434); RBC 4.52 10^6/uL (4.00-5.60); RDW 13.9 % (11.9-15.9)
[2023-10-03 09:45] LABS: CALCIUM 9.1 mg/dl (8.5-10.1); CREATININE 0.7 mg/dl (0.6-1.3); POTASSIUM 4.2 mmol/L (3.5-5.1)
[2023-10-03 22:17] VITALS: TEMP 98
[2023-10-04 06:20] VITALS: RESP 18
[2023-10-04 08:05] LABS: HEMATOCRIT 40.9 % (35.4-49); HEMOGLOBIN 13.4 G/dL (11.7-16.9); MCH 29.3 pg (25.7-33.7); MCHC 32.6 g/dl (32.0-35.9); MEAN CELL VOLUME 89.8 fl (80-96); MEAN PLT VOLUME 8.3 fl (7.5-11.1); PLATELET COUNT 114.6 10^3/uL (134-434); RBC 4.55 10^6/uL (4.00-5.60); WHITE BLOOD COUNT 4.4 10^3/uL (4.0-10.8)
[2023-10-04 09:15] VITALS: BP 130/82; PULSE 75
[2023-10-04 10:11] LABS: POTASSIUM 4.3 mmol/L (3.5-5.1)
[2023-10-04 10:18] LABS: ALBUMIN 3.3 g/dl (3.4-5.0); BLOOD UREA NITROGEN 11.2 mg/dL (7-18); CALCIUM 8.8 mg/dL (8.5-10.1)
[2023-10-04 10:21] LABS: CREATININE 0.7 mg/dL (0.55-1.3)
[2023-10-04 10:24] LABS: BILIRUBIN,TOTAL 0.4 mg/dL (0.2-1); TOT PROT 6.4 g/dl (6.4-8.2)
== END 2023-10-04 12:27 | disposition home or self-care (01) | DRG 383 ==
LOC: FER 12:17 → UNDOADMOB 17:06 → FM/S 17:06 → OBSVTOIN 09-29 09:53
PROVIDERS: ADMIT Internal Medicine; ATTEND Internal Medicine
DX: B02.9 Zoster without complications (principal); E11.9 Type 2 diabetes mellitus without complications; L03.211 Cellulitis of face; I10 Essential (primary) hypertension; A49.02 Methicillin resistant Staphylococcus aureus infection, unspecified site; E78.5 Hyperlipidemia, unspecified; F10.90 Alcohol use, unspecified, uncomplicated
CPT/HCPCS: 36415; 70487-TC; 80048; 80053; 82962; 83735; 84100; 85025; 85027; 85610; 85730; 87070; 99285-25; G0378; G0480; J0131; Q9967

== ENCOUNTER 2023-10-05 20:12 | Inpatient (IN) | payer OTHER ==
[2023-10-05 20:52] VITALS: RESP 18
[2023-10-05] MEDS: SODIUM CHLORIDE 1,000 ML IV STA (21:38)
[2023-10-05 21:42] LABS: HEMATOCRIT 41.9 % (35.4-49); HEMOGLOBIN 14.1 G/dL (11.7-16.9); MCH 29.9 pg (25.7-33.7); MCHC 33.6 g/dl (32.0-35.9); MEAN CELL VOLUME 89.2 fl (80-96); MEAN PLT VOLUME 7.9 fl (7.5-11.1); PLATELET COUNT 154.5 10^3/uL (134-434); RDW 15.1 % (11.9-15.9); WHITE BLOOD COUNT 4.2 10^3/uL (4.0-10.8)
[2023-10-05 21:53] LABS: PLATELET ESTIMATE ADEQUATE
[2023-10-05 21:58] LABS: ALBUMIN 4.4 g/dl (3.4-5.0); BILIRUBIN,TOTAL 0.3 mg/dl (0.2-1); CALCIUM 9.4 mg/dl (8.5-10.1); CREATININE 0.7 mg/dl (0.6-1.3); POTASSIUM 4.3 mmol/L (3.5-5.1)
[2023-10-05] MEDS ORDERED: VANCOMYCIN 1,000 MG VIAL (RESTRICTED TO ID ONLY) ONE (22:06)
[2023-10-05] MEDS: VANCOMYCIN 1,000 MG in DEXTROSE 5%-WATER - 250 ML IVPB ONE (22:07)
[2023-10-05] MEDS ORDERED: KETOROLAC TROMETHAMINE 30 MG/1 ML VIAL ONE (22:18)
[2023-10-05] MEDS: KETOROLAC TROMETHAMINE 30 MG/1 ML VIAL IVPUSH ONE (22:30)
[2023-10-06 06:25] VITALS: BMI 31.2
[2023-10-06] MEDS: GABAPENTIN 100 MG CAPSULE PO SCH (06:51)
[2023-10-06] MEDS: INSULIN ASPART SLIDING SCALE (NOVOLOG) 1 VIAL SQ SCH (07:00)
[2023-10-06] MEDS: ACYCLOVIR 400 MG TABLET PO SCH (07:12)
[2023-10-06 08:43] LABS: CALCIUM 8.9 mg/dl (8.5-10.1); CREATININE 0.7 mg/dl (0.6-1.3); POTASSIUM 4.2 mmol/L (3.5-5.1)
[2023-10-06] MEDS: LISINOPRIL 5 MG TABLET PO SCH (09:25)
[2023-10-06] MEDS: VANCOMYCIN PREMIX 1.5 GM 1,500 MG/300 ML BAG IVPB SCH (09:25)
[2023-10-06] MEDS: ENOXAPARIN NA (PORCINE) 40 MG/0.4 ML DISP.SYRIN SQ SCH (09:25)
[2023-10-06 10:46] LABS: HEMOGLOBIN 12.8 GM/dL (11.7-16.9); MCH 30.9 pg (25.7-33.7); MCHC 34.7 g/dl (32.0-35.9); MEAN CELL VOLUME 88.9 fl (80-96); MEAN PLT VOLUME 7.5 fl (7.5-11.1); PLATELET COUNT 148 10^3/uL (134-434); RBC 4.16 M/mm3 (4.00-5.60); RDW 14.4 % (11.9-15.9); WHITE BLOOD COUNT 4.7 K/mm3 (4.0-10.0)
[2023-10-06] MEDS: CLINDAMYCIN 600MG PREMIX IVPB 600 MG/50 ML BAG IVPB SCH (11:16)
[2023-10-06] MEDS: KETOCONAZOLE 2% CREAM - 60GM TUBE TP SCH (11:43)
[2023-10-06 12:28] VITALS: BP 122/67; PULSE 73; TEMP 98.1
[2023-10-06] MEDS ORDERED: ATORVASTATIN CA 40 MG TABLET (FP) PO SCH (22:00)
[2023-10-07] MEDS ORDERED: VANCOMYCIN HCL 1,500 MG in DEXTROSE 5%-WATER - 250 ML IVPB SCH (10:00)
== END 2023-10-06 13:07 | disposition home or self-care (01) | DRG 385 ==
LOC: FER 20:12 → FM/S 10-06 00:01
PROVIDERS: ADMIT Internal Medicine
DX: L21.9 Seborrheic dermatitis, unspecified (principal); I10 Essential (primary) hypertension; E11.9 Type 2 diabetes mellitus without complications; F10.10 Alcohol abuse, uncomplicated; K04.7 Periapical abscess without sinus; E78.00 Pure hypercholesterolemia, unspecified; F39 Unspecified mood [affective] disorder
CPT/HCPCS: 36415; 70487-TC; 71045-TC-FY; 80048; 80053; 82962; 85025; 85027; 99285-25; Q9967

== ENCOUNTER 2023-10-09 17:23 | Emergency (ER) | payer OTHER ==
[2023-10-09 17:43] VITALS: BP 145/95; PULSE 99; RESP 20; TEMP 98; BMI 29.9
[2023-10-09] MEDS ORDERED: DALBAVANCIN HCL 500 MG VIAL (RESTRICTED TO ID ONLY) IVPB ONE (22:03)
[2023-10-09] MEDS: FOLIC ACID INJECTION - 1 MG, THIAMINE HCL 100 MG, MULTIVIT INJECTION ADULT 10 ML in SOD... IVPB ONE (23:09)
[2023-10-09] MEDS: DALBAVANCIN HCL 1,500 MG in DEXTROSE 5%-WATER - 500 ML IVPB ONE (23:09)
== END 2023-10-10 01:12 | disposition home or self-care (01) ==
LOC: FER 17:23
PROC: 3E033GC Introduction of Other Therapeutic Substance into Peripheral Vein, Percutaneous Approach (ICD-10-PCS; principal; 2023-10-09)
PROC: 3E033GC Introduction of Other Therapeutic Substance into Peripheral Vein, Percutaneous Approach (ICD-10-PCS; 2023-10-09)
PROC: 3E033GC Introduction of Other Therapeutic Substance into Peripheral Vein, Percutaneous Approach (ICD-10-PCS; 2023-10-09)
PROC: 3E033GC Introduction of Other Therapeutic Substance into Peripheral Vein, Percutaneous Approach (ICD-10-PCS; 2023-10-09)
PROC: 3E033GC Introduction of Other Therapeutic Substance into Peripheral Vein, Percutaneous Approach (ICD-10-PCS; 2023-10-09)
PROC: 3E033GC Introduction of Other Therapeutic Substance into Peripheral Vein, Percutaneous Approach (ICD-10-PCS; 2023-10-09)
PROC: 3E033GC Introduction of Other Therapeutic Substance into Peripheral Vein, Percutaneous Approach (ICD-10-PCS; 2023-10-09)
PROC: 3E033GC Introduction of Other Therapeutic Substance into Peripheral Vein, Percutaneous Approach (ICD-10-PCS; 2023-10-09)
DX: R21 Rash and other nonspecific skin eruption (principal); R53.1 Weakness; R19.7 Diarrhea, unspecified; T36.95XA Adverse effect of unspecified systemic antibiotic, initial encounter; L03.211 Cellulitis of face; L03.221 Cellulitis of neck; B95.62 Methicillin resistant Staphylococcus aureus infection as the cause of diseases classified elsewhere
CPT/HCPCS: 99284-25; J0875

== ENCOUNTER 2023-10-24 20:17 | Observation (INO) | payer OTHER ==
[2023-10-24] MEDS ORDERED: ACETAMINOPHEN INJECTION 100 ML IVPB ONE (20:37)
[2023-10-24] MEDS: SODIUM CHLORIDE 1,000 ML IV ONE ×2 (20:50→22:25)
[2023-10-24] MEDS: ACETAMINOPHEN 1000 MG/100 ML BAG IVPB ONE (20:50)
[2023-10-24] MEDS ORDERED: morphine SULFATE 4 MG/ML VIAL ONE (21:01)
[2023-10-24] MEDS ORDERED: KETOROLAC TROMETHAMINE 30 MG/1 ML VIAL ONE (21:01)
[2023-10-24] MEDS: morphine CARPU-JECT 4 MG/1 ML DISP.SYRIN IVPUSH ONE (21:05)
[2023-10-24 21:06] LABS: HEMATOCRIT 42.2 % (35.4-49); HEMOGLOBIN 14.6 G/dL (11.7-16.9); MCH 30.7 pg (25.7-33.7); MCHC 34.5 g/dl (32.0-35.9); MEAN CELL VOLUME 88.9 fl (80-96); MEAN PLT VOLUME 8.3 fl (7.5-11.1); PLATELET COUNT 119.9 10^3/uL (134-434); RBC 4.75 10^6/uL (4.00-5.60); RDW 14.5 % (11.9-15.9); WHITE BLOOD COUNT 3.9 10^3/uL (4.0-10.8)
[2023-10-24] MEDS: KETOROLAC TROMETHAMINE 30 MG/1 ML VIAL IVPUSH ONE (21:10)
[2023-10-24 21:20] LABS: ALBUMIN 4.9 g/dl (3.4-5.0); BILIRUBIN,TOTAL 0.4 mg/dl (0.2-1); CALCIUM 9.5 mg/dl (8.5-10.1); CREATININE 0.9 mg/dl (0.6-1.3); POTASSIUM 4.2 mmol/L (3.5-5.1); TOT PROT 7.5 g/dl (6.4-8.2)
[2023-10-24] MEDS ORDERED: HYDROmorphone HCL/PF 1 MG/ML VIAL ONE (22:22)
[2023-10-24 22:25] LABS: LACTIC ACID 3.4 mmol/L (0.4-2.0)
[2023-10-24] MEDS: HYDROmorphone HCl 2 MG/ML VIAL IVPUSH STA (22:26)
[2023-10-25 01:38] LABS: LACTIC ACID 2.8 mmol/L (0.4-2.0)
[2023-10-25 02:33] VITALS: BMI 30.5
[2023-10-25] MEDS: SODIUM CHLORIDE 1,000 ML IV SCH (02:38)
[2023-10-25] MEDS: ACETAMINOPHEN 325 MG TABLET (FP) PO PRN (02:45)
[2023-10-25] MEDS: INSULIN ASPART SLIDING SCALE (NOVOLOG) 1 VIAL SQ SCH (06:37)
[2023-10-25] MEDS: INSULIN (LEVEMIR) 100 UNITS/ML UNITS SQ SCH ×2 (10:04→22:29)
[2023-10-25] MEDS: LISINOPRIL 5 MG TABLET PO SCH (10:05)
[2023-10-25] MEDS: PANTOPRAZOLE 40 MG TABLET PO SCH ×2 (10:05→12:39)
[2023-10-25] MEDS: GABAPENTIN 100 MG CAPSULE PO SCH (10:05)
[2023-10-25] MEDS: LACTATED RINGERS SOLUTION 1,000 ML/1,000 ML INFUS.BAG IV SCH (10:05)
[2023-10-25 12:01] LABS: LACTIC ACID 2.4 mmol/L (0.4-2.0)
[2023-10-25] MEDS ORDERED: DICYCLOMINE HCL 10 MG CAPSULE PO PRN (12:09)
[2023-10-25] MEDS: ONDANSETRON *ODT* 4 MG TABLET SL PRN (12:38)
[2023-10-25] MEDS: ACETAMINOPHEN 1000 MG/100 ML BAG IVPB PRN (12:39)
[2023-10-25] MEDS: SUCRALFATE 1 GM TABLET (FP) PO SCH (14:49)
[2023-10-25 16:08] LABS: COCAINE, UR NEGATIVE (NEGATIVE); METHADONE, UR NEGATIVE (NEGATIVE); URINE AMPHETAMINES NEGATIVE (NEGATIVE)
[2023-10-25 16:10] LABS: URINE BARBITURATES NEGATIVE (NEGATIVE)
[2023-10-25 16:11] LABS: PHENCYCLIDINE,URINE NEGATIVE (NEGATIVE); URINE BENZODIAZEPINES NEGATIVE (NEGATIVE)
[2023-10-25 16:13] LABS: OPIATES, URI POSITIVE (NEGATIVE)
[2023-10-26 02:05] VITALS: RESP 18
[2023-10-26 09:11] LABS: ALBUMIN 3.7 g/dl (3.4-5.0); BILIRUBIN,TOTAL 0.7 mg/dl (0.2-1); CALCIUM 9.3 mg/dl (8.5-10.1); CREATININE 0.7 mg/dl (0.6-1.3); MAGNESIUM 1.9 mg/dL (1.8-2.4); PHOSPHOROUS 3.6 (2.5-4.9); POTASSIUM 4.2 mmol/L (3.5-5.1); TOT PROT 5.6 g/dl (6.4-8.2)
[2023-10-26 09:58] LABS: BASO % 0.3 % (0-2.0); EOS % 0.6 % (0-4.5); HEMATOCRIT 38.2 % (35.4-49); LYMPH % 30.6 % (8-40); MCH 30.4 pg (25.7-33.7); MEAN CELL VOLUME 89.4 fl (80-96); MEAN PLT VOLUME 8.4 fl (7.5-11.1); MONO % 8.6 % (3.8-10.2); NEUT % 59.9 % (42.8-82.8); PLATELET COUNT 108 10^3/uL (134-434); RBC 4.27 M/mm3 (4.00-5.60); RDW 14.6 % (11.9-15.9); WHITE BLOOD COUNT 4.2 K/mm3 (4.0-10.0)
[2023-10-26] MEDS: SENNOSIDES 8.6MG TABLET (FP) PO SCH (21:22)
[2023-10-27 07:46] LABS: HEMOGLOBIN 13.3 G/dL (11.7-16.9); MCH 29.8 pg (25.7-33.7); MCHC 33.1 g/dl (32.0-35.9); MEAN PLT VOLUME 8.4 fl (7.5-11.1); PLATELET COUNT 109.5 10^3/uL (134-434); RBC 4.44 10^6/uL (4.00-5.60); RDW 14.3 % (11.9-15.9)
[2023-10-27 07:57] LABS: CALCIUM 9.3 mg/dl (8.5-10.1); CREATININE 0.7 mg/dl (0.6-1.3); POTASSIUM 3.6 mmol/L (3.5-5.1)
[2023-10-27 10:31] VITALS: BP 151/87; PULSE 68; TEMP 97.8
== END 2023-10-27 10:54 | disposition home or self-care (01) ==
LOC: FER 20:17 → INTOOBSV 10-25 01:56 → FM/S 10-25 01:56 → UNDODISIN 10-25 10:25
PROVIDERS: ADMIT Internal Medicine; ATTEND Internal Medicine
PROC: 3E033NZ Introduction of Analgesics, Hypnotics, Sedatives into Peripheral Vein, Percutaneous Approach (ICD-10-PCS; principal; 2023-10-25)
PROC: 3E013VG Introduction of Insulin into Subcutaneous Tissue, Percutaneous Approach (ICD-10-PCS; 2023-10-25)
PROC: 3E0333Z Introduction of Anti-inflammatory into Peripheral Vein, Percutaneous Approach (ICD-10-PCS; 2023-10-25)
PROC: 3E0337Z Introduction of Electrolytic and Water Balance Substance into Peripheral Vein, Percutaneous Approach (ICD-10-PCS; 2023-10-25)
DX: E87.20 Acidosis, unspecified (principal); K59.00 Constipation, unspecified; F10.99 Alcohol use, unspecified with unspecified alcohol-induced disorder; Z86.14 Personal history of Methicillin resistant Staphylococcus aureus infection; E11.40 Type 2 diabetes mellitus with diabetic neuropathy, unspecified; E78.5 Hyperlipidemia, unspecified; I10 Essential (primary) hypertension; E11.65 Type 2 diabetes mellitus with hyperglycemia; K57.90 Diverticulosis of intestine, part unspecified, without perforation or abscess without bleeding; K46.9 Unspecified abdominal hernia without obstruction or gangrene; Z88.0 Allergy status to penicillin; Z72.0 Tobacco use; R10.32 Left lower quadrant pain
CPT/HCPCS: 36415; 74176-TC; 74177-TC; 80048; 80053; 80307; 81003; 82010; 82962; 83036; 83605; 83690; 83735; 84100; 85025; 85027; 87086; 96361; 96372; 96374; 96375; 96376; 99285-25; G0378; J0131; Q0162

== ENCOUNTER 2023-10-30 19:14 | Inpatient (IN) | payer OTHER ==
[2023-10-30] MEDS ORDERED: HYDROmorphone HCL/PF 1 MG/ML VIAL ONE (21:33)
[2023-10-30] MEDS: HYDROmorphone HCl 2 MG/ML VIAL IVPUSH STA (21:50)
[2023-10-30] MEDS: SODIUM CHLORIDE 1,000 ML IV ONE ×2 (21:51→23:41)
[2023-10-30 21:59] LABS: HEMATOCRIT 39.9 % (35.4-49); HEMOGLOBIN 13.2 G/dL (11.7-16.9); MCH 29.8 pg (25.7-33.7); MCHC 33.1 g/dl (32.0-35.9); MEAN PLT VOLUME 7.9 fl (7.5-11.1); PLATELET COUNT 147.9 10^3/uL (134-434); RBC 4.43 10^6/uL (4.00-5.60); RDW 14.8 % (11.9-15.9); WHITE BLOOD COUNT 3.9 10^3/uL (4.0-10.8)
[2023-10-30 22:19] LABS: ALBUMIN 4.2 g/dl (3.4-5.0); BILIRUBIN,TOTAL 0.3 mg/dl (0.2-1); CREATININE 0.7 mg/dl (0.6-1.3); TOT PROT 6.2 g/dl (6.4-8.2)
[2023-10-30 22:49] LABS: LACTIC ACID 2.7 mmol/L (0.4-2.0)
[2023-10-31] MEDS ORDERED: HYDROmorphone HCL/PF 1 MG/ML VIAL ONE (01:06)
[2023-10-31] MEDS: HYDROmorphone HCl 2 MG/ML VIAL IVPUSH STA (01:14)
[2023-10-31] MEDS: DEXTROSE 5%-0.45% SALINE 1,000 ML IV SCH (02:30)
[2023-10-31] MEDS: ACETAMINOPHEN 1000 MG/100 ML BAG IVPB PRN (02:40)
[2023-10-31] MEDS: POLYETHYLENE GLYCOL (HEALTHYLAX) 3350 17 GM PACKET PO SCH (10:26)
[2023-10-31] MEDS: LISINOPRIL 5 MG TABLET PO SCH (10:26)
[2023-10-31] MEDS: BISACODYL 5 MG TABLET.DR (FP) PO ONE (17:25)
[2023-10-31] MEDS: POLYETHYLENE GLYCOL 3350 255 GM BTL PO ONE (17:36)
[2023-10-31] MEDS: INSULIN ASPART SLIDING SCALE (NOVOLOG) 1 VIAL SQ SCH (21:52)
[2023-10-31] MEDS: INSULIN (LEVEMIR) 100 UNITS/ML UNITS SQ SCH (21:52)
[2023-11-01 08:28] LABS: ACTIVATED PTT 26.4 SECONDS (25.2-36.5); INR 1.04 (0.83-1.09); PROTHROMBIN TIME (PATIENT) 12.1 SEC (9.7-13.0)
[2023-11-01 10:08] LABS: BASO % 0.4 % (0-2.0); EOS % 1.5 % (0-4.5); HEMATOCRIT 39.1 % (35.4-49); HEMOGLOBIN 13.2 GM/dL (11.7-16.9); LYMPH % 40.6 % (8-40); MCH 30.2 pg (25.7-33.7); MCHC 33.8 g/dl (32.0-35.9); MEAN CELL VOLUME 89.4 fl (80-96); MEAN PLT VOLUME 7.9 fl (7.5-11.1); MONO % 9.4 % (3.8-10.2); NEUT % 48.1 % (42.8-82.8); PLATELET COUNT 130 10^3/uL (134-434); RBC 4.38 M/mm3 (4.00-5.60); RDW 14.4 % (11.9-15.9); WHITE BLOOD COUNT 3.5 K/mm3 (4.0-10.0)
[2023-11-01 15:53] VITALS: BMI 29.8
[2023-11-02 06:34] VITALS: TEMP 98.1
[2023-11-02 10:26] VITALS: BP 115/72; PULSE 74; RESP 18
== END 2023-11-02 12:14 | disposition home or self-care (01) | DRG 244 ==
LOC: FER 19:14 → FM/S 10-31 01:28 → OBSVTOIN 10-31 08:09
PROVIDERS: ADMIT Internal Medicine
PROC: 0DBL8ZX Excision of Transverse Colon, Via Natural or Artificial Opening Endoscopic, Diagnostic (ICD-10-PCS; 2023-11-01)
PROC: 0DBH8ZX Excision of Cecum, Via Natural or Artificial Opening Endoscopic, Diagnostic (ICD-10-PCS; 2023-11-01)
PROC: 0DBK8ZX Excision of Ascending Colon, Via Natural or Artificial Opening Endoscopic, Diagnostic (ICD-10-PCS; principal; 2023-11-01 13:05)
DX: K57.90 Diverticulosis of intestine, part unspecified, without perforation or abscess without bleeding (principal); I10 Essential (primary) hypertension; E11.9 Type 2 diabetes mellitus without complications; K59.00 Constipation, unspecified; E11.65 Type 2 diabetes mellitus with hyperglycemia; F10.10 Alcohol abuse, uncomplicated; K29.20 Alcoholic gastritis without bleeding; K57.30 Diverticulosis of large intestine without perforation or abscess without bleeding; E87.20 Acidosis, unspecified
CPT/HCPCS: 36415; 71045-TC-FY; 74019-TC-FY; 80053; 81003; 82962; 83605; 83690; 85025; 85027; 85610; 85730; 88305-TC; 99285-25; G0378; J0131

== ENCOUNTER 2023-11-16 20:23 | Inpatient (IN) | payer OTHER ==
[2023-11-16] MEDS ORDERED: HYDROmorphone HCL/PF 1 MG/ML VIAL ONE ×2 (21:34→23:02)
[2023-11-16] MEDS: SODIUM CHLORIDE 1,000 ML IV SCH (21:39)
[2023-11-16] MEDS: HYDROmorphone HCl 2 MG/ML VIAL IVPUSH STA ×2 (21:51→23:17)
[2023-11-16 22:00] LABS: HEMATOCRIT 39.5 % (35.4-49); MCH 31.2 pg (25.7-33.7); MCHC 35.3 g/dl (32.0-35.9); MEAN CELL VOLUME 88.4 fl (80-96); MEAN PLT VOLUME 8.5 fl (7.5-11.1); PLATELET COUNT 107.4 10^3/uL (134-434); RBC 4.47 10^6/uL (4.00-5.60); RDW 13.8 % (11.9-15.9)
[2023-11-16 22:13] LABS: ALBUMIN 4.3 g/dl (3.4-5.0); BILIRUBIN,TOTAL 0.4 mg/dl (0.2-1); CALCIUM 9.2 mg/dl (8.5-10.1); CREATININE 0.6 mg/dl (0.6-1.3); MAGNESIUM 1.8 mg/dL (1.8-2.4); PHOSPHOROUS 2.3 (2.5-4.9); POTASSIUM 3.7 mmol/L (3.5-5.1); TOT PROT 6.6 g/dl (6.4-8.2)
[2023-11-16] MEDS ORDERED: INSULIN REGULAR HUMAN 100 UNITS/ML *VIAL ONE (23:25)
[2023-11-16] MEDS: INSULIN REGULAR HUMAN 100 UNITS/ML *VIAL IVPUSH ONE (23:32)
[2023-11-16] MEDS ORDERED: VANCOMYCIN 1,000 MG VIAL (RESTRICTED TO ID ONLY) ONE (23:52)
[2023-11-17] MEDS: VANCOMYCIN 1,000 MG in DEXTROSE 5%-WATER - 250 ML IVPB ONE (00:09)
[2023-11-17 00:41] LABS: LACTIC ACID 2.5 mmol/L (0.4-2.0)
[2023-11-17] MEDS: INSULIN ASPART SLIDING SCALE (NOVOLOG) 1 VIAL SQ SCH (06:38)
[2023-11-17 09:03] LABS: ANION GAP 9 mmol/L (4-13); CALCIUM 8.8 mg/dl (8.5-10.1); CHLORIDE 106 mmol/L (98-107); CO2 29 mmol/L (21-32); CREATININE 0.6 mg/dl (0.6-1.3); GLUCOSE,RANDOM 171 mg/dl (74-106); POTASSIUM 3.7 mmol/L (3.5-5.1); SODIUM 144 mmol/L (136-145)
[2023-11-17 09:37] LABS: BASO % 0.4 % (0-2.0); EOS % 1.4 % (0-4.5); HEMATOCRIT 35.1 % (35.4-49); HEMOGLOBIN 12.7 GM/dL (11.7-16.9); LYMPH % 28.9 % (8-40); MCH 31.2 pg (25.7-33.7); MCHC 36.1 g/dl (32.0-35.9); MEAN CELL VOLUME 86.6 fl (80-96); MEAN PLT VOLUME 8.2 fl (7.5-11.1); MONO % 12.4 % (3.8-10.2); NEUT % 56.9 % (42.8-82.8); PLATELET COUNT 101 10^3/uL (134-434); RBC 4.05 M/mm3 (4.00-5.60); RDW 14.2 % (11.9-15.9); WHITE BLOOD COUNT 4.1 K/mm3 (4.0-10.0)
[2023-11-17] MEDS: LISINOPRIL 5 MG TABLET PO SCH (11:10)
[2023-11-17] MEDS: ENOXAPARIN NA (PORCINE) 40 MG/0.4 ML DISP.SYRIN SQ SCH (11:10)
[2023-11-17] MEDS: THIAMINE 100 MG TABLET PO SCH (11:17)
[2023-11-17] MEDS: MULTIVITAMINS (DAILY MVI) TABLET (FP) PO SCH (11:17)
[2023-11-17] MEDS: FOLIC ACID 1 MG TABLET (FP) PO SCH (11:17)
[2023-11-17] MEDS: VANCOMYCIN 250 MG/5 ML ORAL SOLUTION (RESTRICTED TO ID ONLY) PO SCH (14:22)
[2023-11-17] MEDS: AZTREONAM 1 GM in DEXTROSE 5%-WATER - 50 ML IVPB SCH (17:10)
[2023-11-17] MEDS ORDERED: REFRIGERATED ANITBIOTICS ONE ×3 (17:21→23:04)
[2023-11-17 17:32] LABS: HIV INTERPRETATION NEGATIVE (NEGATIVE)
[2023-11-17] MEDS: VANCOMYCIN PREMIX 1.5 GM 1,500 MG/300 ML BAG IVPB SCH (18:41)
[2023-11-17] MEDS: ATORVASTATIN CA 40 MG TABLET (FP) PO SCH (21:14)
[2023-11-17] MEDS: ACETAMINOPHEN 325 MG TABLET (FP) PO PRN (23:05)
[2023-11-18] MEDS ORDERED: REFRIGERATED ANITBIOTICS ONE (06:04)
[2023-11-18 08:56] LABS: BASO % 0.3 % (0-2.0); EOS % 1.4 % (0-4.5); HEMATOCRIT 38.4 % (35.4-49); HEMOGLOBIN 13.5 GM/dL (11.7-16.9); LYMPH % 29.7 % (8-40); MCH 30.4 pg (25.7-33.7); MEAN CELL VOLUME 86.7 fl (80-96); MEAN PLT VOLUME 8.3 fl (7.5-11.1); MONO % 9.4 % (3.8-10.2); NEUT % 59.2 % (42.8-82.8); PLATELET COUNT 110 10^3/uL (134-434); RBC 4.43 M/mm3 (4.00-5.60); RDW 13.8 % (11.9-15.9); WHITE BLOOD COUNT 4.1 K/mm3 (4.0-10.0)
[2023-11-18 09:03] LABS: ALBUMIN 3.8 g/dl (3.4-5.0); ALK PHOS 77 U/L (45-117); ANION GAP 9 mmol/L (4-13); BILIRUBIN,TOTAL 0.7 mg/dl (0.2-1); CALCIUM 9.2 mg/dl (8.5-10.1); CHLORIDE 106 mmol/L (98-107); CO2 27 mmol/L (21-32); CREATININE 0.6 mg/dl (0.6-1.3); GLUCOSE,RANDOM 227 mg/dl (74-106); POTASSIUM 3.4 mmol/L (3.5-5.1); SGOT/AST 10 U/L (15-37); SGPT/ALT 15 U/L (7-52); SODIUM 142 mmol/L (136-145); TOT PROT 5.9 g/dl (6.4-8.2)
[2023-11-18] MEDS ORDERED: VANCOMYCIN PREMIX 1.5 GM 1,500 MG/300 ML BAG IVPB SCH (12:00)
[2023-11-18] MEDS: POTASSIUM CHLORIDE TABS 20 MEQ TABLET.ER (FP) PO ONE (13:54)
[2023-11-18] MEDS: KETOROLAC TROMETHAMINE 15 MG/ML VIAL IVPUSH ONE (21:51)
[2023-11-19 08:29] LABS: ALBUMIN 3.9 g/dl (3.4-5.0); ALK PHOS 72 U/L (45-117); ANION GAP 8 mmol/L (4-13); BILIRUBIN,TOTAL 0.6 mg/dl (0.2-1); CALCIUM 9.4 mg/dl (8.5-10.1); CHLORIDE 105 mmol/L (98-107); CO2 28 mmol/L (21-32); CREATININE 0.7 mg/dl (0.6-1.3); GLUCOSE,RANDOM 209 mg/dl (74-106); POTASSIUM 3.6 mmol/L (3.5-5.1); SGOT/AST 13 U/L (15-37); SGPT/ALT 15 U/L (7-52); SODIUM 141 mmol/L (136-145)
[2023-11-19 09:27] LABS: BASO % 0.5 % (0-2.0); EOS % 4.6 % (0-4.5); HEMATOCRIT 37.5 % (35.4-49); HEMOGLOBIN 12.9 GM/dL (11.7-16.9); LYMPH % 32.3 % (8-40); MCH 30.1 pg (25.7-33.7); MCHC 34.5 g/dl (32.0-35.9); MEAN CELL VOLUME 87.4 fl (80-96); MEAN PLT VOLUME 7.9 fl (7.5-11.1); MONO % 9.7 % (3.8-10.2); NEUT % 52.9 % (42.8-82.8); PLATELET COUNT 127 10^3/uL (134-434); RBC 4.29 M/mm3 (4.00-5.60); RDW 14.2 % (11.9-15.9); WHITE BLOOD COUNT 4.7 K/mm3 (4.0-10.0)
[2023-11-19] MEDS: INSULIN (LEVEMIR) 100 UNITS/ML UNITS SQ SCH (12:11)
[2023-11-19] MEDS: KETOCONAZOLE 2% CREAM - 60GM TUBE TP SCH (12:12)
[2023-11-19 14:52] VITALS: BMI 30.2
[2023-11-19] MEDS: valACYclovir HCL 500 MG TABLET (FP) PO SCH (17:48)
[2023-11-19] MEDS: LACTATED RINGERS SOLUTION 1,000 ML/1,000 ML INFUS.BAG IV SCH (20:55)
[2023-11-20 08:06] LABS: HEMOGLOBIN 13.5 G/dL (11.7-16.9); MCH 29.8 pg (25.7-33.7); MCHC 33.9 g/dl (32.0-35.9); MEAN CELL VOLUME 88.1 fl (80-96); MEAN PLT VOLUME 8.1 fl (7.5-11.1); PLATELET COUNT 131.2 10^3/uL (134-434); RBC 4.54 10^6/uL (4.00-5.60); RDW 14.2 % (11.9-15.9); WHITE BLOOD COUNT 5.2 10^3/uL (4.0-10.8)
[2023-11-20 08:49] LABS: ALBUMIN 4.2 g/dl (3.4-5.0); BILIRUBIN,TOTAL 0.4 mg/dl (0.2-1); CALCIUM 9.7 mg/dl (8.5-10.1); CREATININE 0.6 mg/dl (0.6-1.3); PHOSPHOROUS 3.9 (2.5-4.9); POTASSIUM 3.9 mmol/L (3.5-5.1); TOT PROT 6.4 g/dl (6.4-8.2)
[2023-11-20 09:13] LABS: MAGNESIUM 1.8 mg/dL (1.8-2.4)
[2023-11-20] MEDS ORDERED: REFRIGERATED ANITBIOTICS ONE (17:53)
[2023-11-20] MEDS: VANCOMYCIN ORAL SOLUTION 125 MG/2.5 ML PO ONE (20:38)
[2023-11-21] MEDS ORDERED: REFRIGERATED ANITBIOTICS ONE ×3 (15:49→23:32)
[2023-11-22] MEDS ORDERED: REFRIGERATED ANITBIOTICS ONE (06:04)
[2023-11-22 06:18] VITALS: RESP 16
[2023-11-22 09:26] LABS: ALBUMIN 4.2 g/dl (3.4-5.0); ALK PHOS 68 U/L (45-117); ANION GAP 9 mmol/L (4-13); BILIRUBIN,TOTAL 0.5 mg/dl (0.2-1); CALCIUM 9.6 mg/dl (8.5-10.1); CHLORIDE 106 mmol/L (98-107); CO2 27 mmol/L (21-32); CREATININE 0.6 mg/dl (0.6-1.3); GLUCOSE,RANDOM 157 mg/dl (74-106); POTASSIUM 4.2 mmol/L (3.5-5.1); SGOT/AST 26 U/L (15-37); SGPT/ALT 46 U/L (7-52); SODIUM 142 mmol/L (136-145); TOT PROT 6.2 g/dl (6.4-8.2)
[2023-11-22 09:35] LABS: BASO % 0.3 % (0-2.0); EOS % 2.4 % (0-4.5); HEMOGLOBIN 13.9 GM/dL (11.7-16.9); LYMPH % 26.1 % (8-40); MCHC 35.6 g/dl (32.0-35.9); MEAN CELL VOLUME 87.3 fl (80-96); MEAN PLT VOLUME 7.8 fl (7.5-11.1); MONO % 9.7 % (3.8-10.2); NEUT % 61.5 % (42.8-82.8); PLATELET COUNT 146 10^3/uL (134-434); RBC 4.47 M/mm3 (4.00-5.60); RDW 14.1 % (11.9-15.9); WHITE BLOOD COUNT 5.3 K/mm3 (4.0-10.0)
[2023-11-22 10:22] VITALS: BP 116/78; PULSE 85; TEMP 97.8
== END 2023-11-22 11:41 | disposition home or self-care (01) | DRG 248 ==
LOC: FER 20:23 → FM/S 11-17 00:50 → OBSVTOIN 11-17 09:57
PROVIDERS: ADMIT Internal Medicine
DX: A04.72 Enterocolitis due to Clostridium difficile, not specified as recurrent (principal); I10 Essential (primary) hypertension; L03.211 Cellulitis of face; A49.02 Methicillin resistant Staphylococcus aureus infection, unspecified site; E11.9 Type 2 diabetes mellitus without complications; F10.10 Alcohol abuse, uncomplicated; R10.32 Left lower quadrant pain; E78.5 Hyperlipidemia, unspecified
CPT/HCPCS: 36415; 71045-TC-FY; 80048; 80053; 81003; 82962; 83605; 83735; 84100; 84591; 85025; 85027; 85651; 86038; 86140; 87040; 87086; 87324; 87389; 87449; 93005; 99285-25; G0378

== ENCOUNTER 2023-11-24 19:23 | Emergency (ER) | payer OTHER ==
[2023-11-24 19:32] VITALS: BP 141/97; PULSE 88; RESP 18; TEMP 97.8; BMI 30.2
[2023-11-24] MEDS ORDERED: ACETAMINOPHEN 1000 MG/100 ML BAG IVPB ONE (19:56)
[2023-11-24] MEDS ORDERED: SODIUM CHLORIDE 1,000 ML IV ONE (19:56)
[2023-11-24] MEDS ORDERED: ONDANSETRON 4 MG/2 ML VIAL IVPB ONE (19:56)
[2023-11-24] MEDS ORDERED: ACETAMINOPHEN INJECTION 100 ML IVPB ONE (20:00)
[2023-11-24] MEDS ORDERED: ONDANSETRON 4 MG/2 ML VIAL ONE (20:00)
== END 2023-11-24 20:15 | disposition left against medical advice (07) ==
LOC: FER 19:23
DX: R10.84 Generalized abdominal pain (principal); R11.2 Nausea with vomiting, unspecified; R19.7 Diarrhea, unspecified
CPT/HCPCS: 99281-25

== ENCOUNTER 2023-12-01 22:58 | Emergency (ER) | payer OTHER ==
[2023-12-01 23:08] VITALS: BP 122/64; PULSE 97; RESP 18; TEMP 97.8; BMI 29.9
[2023-12-02] MEDS ORDERED: ONDANSETRON 4 MG/2 ML VIAL ONE (00:01)
[2023-12-02] MEDS ORDERED: morphine SULFATE 4 MG/ML VIAL ONE ×2 (00:01→01:28)
[2023-12-02 00:05] LABS: BASO % 0.4 % (0-2.0); EOS % 1.1 % (0-4.5); HEMATOCRIT 39.5 % (35.4-49); HEMOGLOBIN 13.7 GM/dL (11.7-16.9); MCH 30.8 pg (25.7-33.7); MCHC 34.8 g/dl (32.0-35.9); MEAN CELL VOLUME 88.4 fl (80-96); MEAN PLT VOLUME 7.1 fl (7.5-11.1); MONO % 7.2 % (3.8-10.2); NEUT % 60.3 % (42.8-82.8); PLATELET COUNT 172 10^3/uL (134-434); RBC 4.46 M/mm3 (4.00-5.60); RDW 14.5 % (11.9-15.9); WHITE BLOOD COUNT 6.7 K/mm3 (4.0-10.0)
[2023-12-02] MEDS: morphine CARPU-JECT 4 MG/1 ML DISP.SYRIN IVPUSH ONE ×2 (00:08→01:35)
[2023-12-02] MEDS: ONDANSETRON 4 MG/2 ML VIAL IVPUSH ONE (00:09)
[2023-12-02] MEDS: SODIUM CHLORIDE 0.9% 500 ML INFUS.BAG IV ONE (00:09)
[2023-12-02 00:13] LABS: INR 1.02 (0.83-1.09); PROTHROMBIN TIME (PATIENT) 11.5 SEC (9.7-13.0)
[2023-12-02 00:16] LABS: ACTIVATED PTT 27.9 SECONDS (25.2-36.5)
[2023-12-02 00:30] LABS: ALBUMIN 3.7 g/dl (3.4-5.0); BLOOD UREA NITROGEN 15.1 mg/dL (7-18); CALCIUM 9.2 mg/dL (8.5-10.1)
[2023-12-02 00:34] LABS: CREATININE 0.8 mg/dL (0.55-1.3)
[2023-12-02 00:35] LABS: BILIRUBIN,TOTAL 0.6 mg/dL (0.2-1)
[2023-12-02 00:54] LABS: LACTIC ACID 3.2 mmol/L (0.4-2.0)
== END 2023-12-02 06:22 | disposition home or self-care (01) ==
LOC: JER 22:58
PROC: 3E033NZ Introduction of Analgesics, Hypnotics, Sedatives into Peripheral Vein, Percutaneous Approach (ICD-10-PCS; principal; 2023-12-01)
PROC: 3E033GC Introduction of Other Therapeutic Substance into Peripheral Vein, Percutaneous Approach (ICD-10-PCS; 2023-12-01)
PROC: 3E033NZ Introduction of Analgesics, Hypnotics, Sedatives into Peripheral Vein, Percutaneous Approach (ICD-10-PCS; 2023-12-02)
DX: R10.32 Left lower quadrant pain (principal); R11.2 Nausea with vomiting, unspecified; R19.7 Diarrhea, unspecified
CPT/HCPCS: 36415; 74177-TC; 80053; 83605; 83690; 85025; 85610; 85730; 86850; 86900; 86901; 99285-25

== ENCOUNTER 2023-12-14 01:18 | Emergency (ER) | payer OTHER ==
[2023-12-14 02:32] VITALS: TEMP 98.6; BMI 29.9
[2023-12-14] MEDS: SODIUM CHLORIDE 0.9% 1000 ML INFUS.BAG IV ONE (02:55)
[2023-12-14 03:29] LABS: HEMATOCRIT 37.9 % (35.4-49); HEMOGLOBIN 13.5 GM/dL (11.7-16.9); MCH 31.3 pg (25.7-33.7); MCHC 35.6 g/dl (32.0-35.9); MEAN CELL VOLUME 87.9 fl (80-96); MEAN PLT VOLUME 7.7 fl (7.5-11.1); PLATELET COUNT 126 10^3/uL (134-434); RBC 4.31 M/mm3 (4.00-5.60); RDW 14.3 % (11.9-15.9); WHITE BLOOD COUNT 7.4 K/mm3 (4.0-10.0)
[2023-12-14 03:57] LABS: POTASSIUM 4.2 mmol/L (3.5-5.1)
[2023-12-14 03:58] LABS: CALCIUM 8.8 mg/dL (8.5-10.1)
[2023-12-14 03:59] LABS: ALBUMIN 3.9 g/dl (3.4-5.0); BLOOD UREA NITROGEN 5.5 mg/dL (7-18)
[2023-12-14 04:02] LABS: CREATININE 0.7 mg/dL (0.55-1.3)
[2023-12-14 04:04] LABS: BILIRUBIN,TOTAL 0.5 mg/dL (0.2-1); TOT PROT 7.2 g/dl (6.4-8.2)
[2023-12-14 06:19] VITALS: BP 143/87; PULSE 84; RESP 16
[2023-12-14] MEDS ORDERED: AZITHROMYCIN 500 MG TABLET ONE (06:25)
[2023-12-14] MEDS: AZITHROMYCIN 500 MG TABLET PO ONE (06:28)
[2023-12-14] MEDS: AZITHROMYCIN IVPB 500 MG in DEXTROSE 5%-WATER - 250 ML IVPB ONE (06:28)
== END 2023-12-14 10:16 | disposition home or self-care (01) ==
LOC: FER 01:18
DX: R05.1 Acute cough (principal); R49.0 Dysphonia; R11.0 Nausea; Z20.822 Contact with and (suspected) exposure to COVID-19
CPT/HCPCS: 0241U-QW; 36415; 71045-TC-FY; 71250-TC; 80053; 85027; 99285-25

== ENCOUNTER 2024-01-29 21:53 | Emergency (ER) | payer OTHER ==
[2024-01-29 22:08] VITALS: BP 159/98; PULSE 100; RESP 18; BMI 29.4
[2024-01-29] MEDS ORDERED: ACETAMINOPHEN INJECTION 100 ML IVPB ONE (23:20)
[2024-01-29] MEDS: ACETAMINOPHEN 1000 MG/100 ML BAG IVPB ONE (23:49)
[2024-01-29] MEDS: SODIUM CHLORIDE 0.9% 500 ML INFUS.BAG IV ONE (23:49)
[2024-01-29 23:51] LABS: BASO % 0.7 % (0-2.0); EOS % 1.9 % (0-4.5); HEMATOCRIT 37.7 % (35.4-49); HEMOGLOBIN 13.2 GM/dL (11.7-16.9); LYMPH % 40.2 % (8-40); MEAN CELL VOLUME 88.6 fl (80-96); MEAN PLT VOLUME 7.1 fl (7.5-11.1); MONO % 11.5 % (3.8-10.2); NEUT % 45.7 % (42.8-82.8); PLATELET COUNT 172 10^3/uL (134-434); RBC 4.26 M/mm3 (4.00-5.60); RDW 13.6 % (11.9-15.9); WHITE BLOOD COUNT 3.8 K/mm3 (4.0-10.0)
[2024-01-29 23:58] LABS: INR 0.96 (0.83-1.09); PROTHROMBIN TIME (PATIENT) 10.9 SEC (9.7-13.0)
[2024-01-30 00:01] LABS: ACTIVATED PTT 27.4 SECONDS (25.2-36.5)
[2024-01-30 00:31] LABS: CALCIUM 9.2 mg/dL (8.5-10.1); POTASSIUM 3.8 mmol/L (3.5-5.1)
[2024-01-30 00:40] LABS: ALBUMIN 3.8 g/dl (3.4-5.0); BILIRUBIN,TOTAL 0.3 mg/dL (0.2-1); BLOOD UREA NITROGEN 10.8 mg/dL (7-18); CREATININE 0.7 mg/dL (0.55-1.3); LACTIC ACID 2.4 mmol/L (0.4-2.0); PHOSPHOROUS 2.9 mg/dL (2.5-4.9); TOT PROT 7.2 g/dl (6.4-8.2)
[2024-01-30] MEDS ORDERED: MORPHINE SULFATE 2 MG/ML SYRINGE ONE (00:44)
[2024-01-30] MEDS: morphine CARPU-JECT 2 MG/1 ML DISP.SYRIN IVPUSH ONE (00:49)
[2024-01-30 01:54] VITALS: TEMP 97
== END 2024-01-30 02:54 | disposition home or self-care (01) ==
LOC: JER 21:53
PROC: 3E033NZ Introduction of Analgesics, Hypnotics, Sedatives into Peripheral Vein, Percutaneous Approach (ICD-10-PCS; 2024-01-29)
PROC: 3E03329 Introduction of Other Anti-infective into Peripheral Vein, Percutaneous Approach (ICD-10-PCS; principal; 2024-01-30)
PROC: 3E033NZ Introduction of Analgesics, Hypnotics, Sedatives into Peripheral Vein, Percutaneous Approach (ICD-10-PCS; 2024-01-30)
DX: R10.84 Generalized abdominal pain (principal); R19.7 Diarrhea, unspecified; R00.0 Tachycardia, unspecified
CPT/HCPCS: 36415; 80053; 83605; 83690; 83735; 84100; 85025; 85610; 85730; 86850; 86900; 86901; 93005; 93010; 99284-25; J0131

== ENCOUNTER 2024-03-06 22:13 | Emergency (ER) | payer OTHER ==
[2024-03-06 22:26] VITALS: BP 129/84; PULSE 86; RESP 20; TEMP 98.5; BMI 29.4
[2024-03-07] MEDS ORDERED: ACETAMINOPHEN INJECTION 100 ML ONE (00:24)
[2024-03-07] MEDS: ACETAMINOPHEN 1000 MG/100 ML BAG IVPB ONE (00:30)
[2024-03-07 01:09] LABS: BASO % 0.1 % (0-2.0); EOS % 3.5 % (0-4.5); HEMATOCRIT 38.7 % (35.4-49); HEMOGLOBIN 13.3 GM/dL (11.7-16.9); LYMPH % 37.9 % (8-40); MCH 30.3 pg (25.7-33.7); MCHC 34.4 g/dl (32.0-35.9); MEAN CELL VOLUME 88.2 fl (80-96); MEAN PLT VOLUME 7.7 fl (7.5-11.1); MONO % 8.8 % (3.8-10.2); NEUT % 49.7 % (42.8-82.8); PLATELET COUNT 131 10^3/uL (134-434); RBC 4.39 M/mm3 (4.00-5.60); RDW 13.3 % (11.9-15.9); WHITE BLOOD COUNT 4.4 K/mm3 (4.0-10.0)
[2024-03-07 01:18] LABS: PH,URINE 6.5 (5.0-8.0); URINE APPEARANCE CLEAR; URINE BILIRUBIN NEGATIVE (NEGATIVE); URINE COLOR YELLOW; URINE GLUCOSE (UA) 3+ (NEGATIVE); URINE KETONE NEGATIVE (NEGATIVE); URINE LEUK ESTERASE NEGATIVE (NEGATIVE); URINE NITRITE NEGATIVE (NEGATIVE); URINE PROTEIN NEGATIVE (NEGATIVE); URINE UROBILINOGEN 0.2 mg/dL (0.2-1.0)
[2024-03-07 01:35] LABS: POTASSIUM 3.6 mmol/L (3.5-5.1)
[2024-03-07 01:37] LABS: CALCIUM 9.1 mg/dL (8.5-10.1)
[2024-03-07 01:38] LABS: ALBUMIN 3.8 g/dl (3.4-5.0); BLOOD UREA NITROGEN 8.4 mg/dL (7-18)
[2024-03-07 01:41] LABS: CREATININE 0.6 mg/dL (0.55-1.3)
[2024-03-07 01:42] LABS: BILIRUBIN,TOTAL 0.3 mg/dL (0.2-1)
== END 2024-03-07 02:07 | disposition home or self-care (01) ==
LOC: FER 22:13
PROC: 3E033NZ Introduction of Analgesics, Hypnotics, Sedatives into Peripheral Vein, Percutaneous Approach (ICD-10-PCS; principal; 2024-03-07)
DX: R10.32 Left lower quadrant pain (principal); R19.7 Diarrhea, unspecified; Z86.19 Personal history of other infectious and parasitic diseases
CPT/HCPCS: 36415; 80053; 81003; 85025; 96374; 99284-25; J0131

== ENCOUNTER 2024-04-27 21:26 | Observation (INO) | payer OTHER ==
[2024-04-27 21:35] VITALS: BMI 29.4
[2024-04-27] MEDS ORDERED: LACTATED RINGERS SOLUTION 1,000 ML with POTASSIUM CHLORIDE 20 MEQ IV ONE (22:54)
[2024-04-27 23:42] LABS: BASO % 0.1 % (0-2.0); EOS % 1.4 % (0-4.5); HEMOGLOBIN 13.3 GM/dL (11.7-16.9); LYMPH % 33.2 % (8-40); MCH 29.9 pg (25.7-33.7); MCHC 34.1 g/dl (32.0-35.9); MEAN CELL VOLUME 87.6 fl (80-96); MEAN PLT VOLUME 7.5 fl (7.5-11.1); MONO % 10.1 % (3.8-10.2); NEUT % 55.2 % (42.8-82.8); PLATELET COUNT 135 10^3/uL (134-434); RBC 4.45 M/mm3 (4.00-5.60); RDW 13.8 % (11.9-15.9); WHITE BLOOD COUNT 4.2 K/mm3 (4.0-10.0)
[2024-04-28 00:01] LABS: POTASSIUM 3.8 mmol/L (3.5-5.1)
[2024-04-28 00:03] LABS: ALBUMIN 3.7 g/dl (3.4-5.0); BLOOD UREA NITROGEN 9.4 mg/dL (7-18)
[2024-04-28 00:04] LABS: MAGNESIUM 1.7 mg/dL (1.8-2.4)
[2024-04-28 00:07] LABS: CREATININE 0.7 mg/dL (0.55-1.3)
[2024-04-28 00:08] LABS: BILIRUBIN,TOTAL 0.4 mg/dL (0.2-1); TOT PROT 7.1 g/dl (6.4-8.2)
[2024-04-28] MEDS ORDERED: LACTATED RINGERS SOLUTION 1,000 ML with POTASSIUM CHLORIDE 20 MEQ IV ONE (00:42)
[2024-04-28 02:00] LABS: VENOUS BASE EXCESS -0.2 mmol/L (-2-2); VENOUS O2 SATURATION 94.7 % (70-80); VENOUS PCO2 38.3 mmHg (38-52); VENOUS PH 7.416 (7.310-7.410)
[2024-04-28] MEDS ORDERED: ACETAMINOPHEN INJECTION 100 ML ONE (02:12)
[2024-04-28] MEDS: ACETAMINOPHEN 1000 MG/100 ML BAG IVPB ONE (02:19)
[2024-04-28] MEDS: LACTATED RINGERS SOLUTION 1,000 ML with POTASSIUM CHLORIDE 20 MEQ IV ONE (02:41)
[2024-04-28] MEDS ORDERED: morphine SULFATE 4 MG/ML VIAL ONE (06:51)
[2024-04-28] MEDS ORDERED: MAGNESIUM 1GM/D5W - 1 GM/100 ML IVPB IVPB ONE (06:51)
[2024-04-28] MEDS: morphine SULFATE 4 MG/ML VIAL IVPUSH ONE (07:03)
[2024-04-28] MEDS: MAGNESIUM SULF 50% (8.12 MEQ/2 ML-1 GM VIAL) IVPB ONE (08:56)
[2024-04-28] MEDS ORDERED: PANTOPRAZOLE 40 MG TABLET PO ONE (10:55)
[2024-04-28] MEDS ORDERED: THIAMINE 100 MG TABLET ONE (10:55)
[2024-04-28] MEDS ORDERED: FOLIC ACID 1 MG TABLET (FP) ONE (10:56)
[2024-04-28] MEDS ORDERED: MULTIVITAMINS (DAILY MVI) TABLET (FP) ONE (10:56)
[2024-04-28] MEDS ORDERED: ENOXAPARIN NA (PORCINE) 40 MG/0.4 ML DISP.SYRIN SQ ONE ×2 (10:56→10:59)
[2024-04-28] MEDS: FOLIC ACID 1 MG TABLET (FP) PO SCH (11:11)
[2024-04-28] MEDS: ENOXAPARIN NA (PORCINE) 40 MG/0.4 ML DISP.SYRIN SQ SCH (11:12)
[2024-04-28] MEDS: THIAMINE 100 MG TABLET PO SCH (11:12)
[2024-04-28] MEDS: LACTATED RINGERS SOLUTION 1,000 ML/1,000 ML INFUS.BAG IV SCH (11:12)
[2024-04-28] MEDS: MULTIVITAMINS (DAILY MVI) TABLET (FP) PO SCH (11:12)
[2024-04-28] MEDS: PANTOPRAZOLE 40 MG TABLET PO SCH (11:12)
[2024-04-28] MEDS ORDERED: MORPHINE SULFATE 2 MG/ML SYRINGE ONE (11:35)
[2024-04-28] MEDS ORDERED: INSULIN ASPART SLIDING SCALE (NOVOLOG) 1 VIAL SQ ONE ×2 (11:36→17:07)
[2024-04-28] MEDS: INSULIN ASPART SLIDING SCALE (NOVOLOG) 1 VIAL SQ SCH (11:40)
[2024-04-28] MEDS ORDERED: DICYCLOMINE HCL 10 MG CAPSULE PO PRN (15:55)
[2024-04-28] MEDS ORDERED: INSULIN (LEVEMIR) 100 UNITS/ML UNITS SQ SCH ×2 (16:00)
[2024-04-28] MEDS ORDERED: DICYCLOMINE HCL 10 MG CAPSULE ONE (16:57)
[2024-04-29 07:34] LABS: BASO % 0.3 % (0-2.0); EOS % 1.6 % (0-4.5); HEMOGLOBIN 14.1 GM/dL (11.7-16.9); LYMPH % 26.7 % (8-40); MCH 29.7 pg (25.7-33.7); MCHC 33.5 g/dl (32.0-35.9); MEAN CELL VOLUME 88.6 fl (80-96); MEAN PLT VOLUME 7.4 fl (7.5-11.1); NEUT % 62.4 % (42.8-82.8); PLATELET COUNT 119 10^3/uL (134-434); RBC 4.74 M/mm3 (4.00-5.60); RDW 13.7 % (11.9-15.9); WHITE BLOOD COUNT 4.3 K/mm3 (4.0-10.0)
[2024-04-29 08:09] LABS: POTASSIUM 4.3 mmol/L (3.5-5.1)
[2024-04-29 08:23] LABS: ALBUMIN 3.4 g/dl (3.4-5.0); CALCIUM 9.2 mg/dL (8.5-10.1); MAGNESIUM 1.9 mg/dL (1.8-2.4)
[2024-04-29 08:24] LABS: BLOOD UREA NITROGEN 10.6 mg/dL (7-18)
[2024-04-29 08:26] LABS: CREATININE 0.7 mg/dL (0.55-1.3)
[2024-04-29 08:27] LABS: PHOSPHOROUS 3.1 mg/dL (2.5-4.9)
[2024-04-29 08:28] LABS: BILIRUBIN,TOTAL 0.5 mg/dL (0.2-1); TOT PROT 6.3 g/dl (6.4-8.2)
[2024-04-29 08:59] VITALS: TEMP 98.3
[2024-04-29] MEDS ORDERED: ATORVASTATIN CA 40 MG TABLET (FP) ONE (12:11)
[2024-04-29] MEDS ORDERED: THIAMINE 100 MG TABLET ONE (12:11)
[2024-04-29] MEDS ORDERED: FOLIC ACID 1 MG TABLET (FP) ONE (12:11)
[2024-04-29] MEDS ORDERED: MULTIVITAMINS (DAILY MVI) TABLET (FP) ONE (12:11)
[2024-04-29] MEDS ORDERED: INSULIN ASPART SLIDING SCALE (NOVOLOG) 1 VIAL SQ ONE (12:12)
[2024-04-29] MEDS ORDERED: ENOXAPARIN NA (PORCINE) 40 MG/0.4 ML DISP.SYRIN SQ ONE (12:12)
[2024-04-29] MEDS ORDERED: ACETAMINOPHEN INJECTION 100 ML ONE (13:06)
[2024-04-29] MEDS: ACETAMINOPHEN 1000 MG/100 ML BAG IVPB PRN (13:11)
[2024-04-29] MEDS: ATORVASTATIN CA 40 MG TABLET (FP) PO SCH (13:33)
[2024-04-29 14:52] VITALS: BP 121/87; PULSE 88; RESP 18
[2024-04-29] MEDS ORDERED: INSULIN (LEVEMIR) 100 UNITS/ML UNITS SQ SCH (22:00)
== END 2024-04-29 16:23 | disposition home or self-care (01) ==
LOC: JER 21:26 → INTOOBSV 04-28 05:44 → UNDOADMOB 04-28 05:44 → JERBED 04-28 05:44 → UNDOADMOB 04-28 07:31 → INTOOBSV 04-29 12:41 → OBSVTOIN 04-29 12:41 → JERBED 04-29 13:08 → UNDODISOB 04-29 16:23
PROVIDERS: ATTEND Nurse Practitioner
PROC: 3E033NZ Introduction of Analgesics, Hypnotics, Sedatives into Peripheral Vein, Percutaneous Approach (ICD-10-PCS; principal; 2024-04-29)
PROC: 3E0337Z Introduction of Electrolytic and Water Balance Substance into Peripheral Vein, Percutaneous Approach (ICD-10-PCS; 2024-04-29)
PROC: 3E033GC Introduction of Other Therapeutic Substance into Peripheral Vein, Percutaneous Approach (ICD-10-PCS; 2024-04-29)
DX: A04.72 Enterocolitis due to Clostridium difficile, not specified as recurrent (principal); I10 Essential (primary) hypertension; E78.5 Hyperlipidemia, unspecified; E11.9 Type 2 diabetes mellitus without complications; K57.90 Diverticulosis of intestine, part unspecified, without perforation or abscess without bleeding; Z86.14 Personal history of Methicillin resistant Staphylococcus aureus infection; Z88.0 Allergy status to penicillin
CPT/HCPCS: 36415; 80053; 82803; 82962; 83735; 84100; 85025; 93005; 93010; 96372; 96374; 96375; 99285-25; G0378; J0131

== ENCOUNTER 2024-06-06 09:35 | Emergency (ER) | payer OTHER ==
[2024-06-06 09:41] VITALS: BP 165/95; PULSE 88; RESP 16; TEMP 98.6; BMI 29.4
[2024-06-06] MEDS ORDERED: DALBAVANCIN HCL 500 MG VIAL (RESTRICTED TO ID ONLY) IVPB ONE (10:32)
[2024-06-06] MEDS: DALBAVANCIN HCL 1,500 MG in DEXTROSE 5%-WATER - 500 ML IVPB ONE (10:45)
[2024-06-06 15:25] LABS: HIV INTERPRETATION NEGATIVE (NEGATIVE)
== END 2024-06-06 13:28 | disposition home or self-care (01) ==
LOC: FER 09:35
PROC: 0H9GXZZ Drainage of Left Hand Skin, External Approach (ICD-10-PCS; principal; 2024-06-06)
PROC: 3E03329 Introduction of Other Anti-infective into Peripheral Vein, Percutaneous Approach (ICD-10-PCS; 2024-06-06)
DX: L03.012 Cellulitis of left finger (principal)
CPT/HCPCS: 10060; 36415; 86803; 87389; 96365; 99284-25; J0875